=== PATIENT | male | born 1945 | race Caucasian/White ===

== ENCOUNTER 2022-02-18 09:50 | Outpatient (CLI) | payer MEDICARE, OTHER ==
[2022-02-18 12:41] LABS: BASOPHILS % (AUTO) 1.6 %; EOSINOPHILS % (AUTO) 0.1 %; HCT - HEMATOCRIT 46.1 % (42.0-52.0); HGB - HEMOGLOBIN 14.4 g/dL (14.0-18.0); LYMPHOCYTES % (AUTO) 11.1 %; MEAN CORPUSCULAR HEMOGLOBIN 26.1 pg (27.0-31.0); MEAN CORPUSCULAR HGB CONC 31.2 g/dL (32.0-36.0); MEAN CORPUSCULAR VOLUME 83.5 fL (80.0-94.0); MONOCYTES % (AUTO) 13.9 %; NEUTROPHILS % (AUTO) 62.2 %; PLT - PLATELET COUNT 134 10^3/uL (130-450); RED BLOOD COUNT 5.52 10^6/uL (4.70-6.10); RED CELL DISTRIBUTION WIDTH 18.4 % (12.0-15.0); WHITE BLOOD COUNT 14.8 x10^3/uL (4.8-10.8)
[2022-02-18 12:59] LABS: ABNORMAL LYMPHS % (MANUAL) 0 %
[2022-02-18 13:02] LABS: BAND NEUTROPHILS % (MANUAL) 5 %; BASOPHILS # (MANUAL) 0.1 10^3/uL (0-0.1); BASOPHILS % (MANUAL) 1 %; DIFFERENTIAL COMMENT MANUAL DIFFERENTIAL; LYMPHOCYTES # (MANUAL) 2.5 10^3/uL (1.5-3.5); LYMPHOCYTES % (MANUAL) 17 %; METAMYELOCYTES % (MANUAL) 3 %; MONOCYTES # (MANUAL) 2.1 10^3/uL (0.0-1.0); NEUTROPHILS # (MANUAL) 9.6 10^3/uL (1.5-6.6); PLATELET ESTIMATE, MANUAL NORMAL (130-450,000) (NORMAL); PLATELET MORPHOLOGY 2+ LARGE PLATELETS (NORMAL); RBC MORPHOLOGY (MULTIPLE) NORMAL APPEARANCE (NORMAL)
[2022-02-18 13:12] LABS: ALBUMIN 4.6 g/dL (3.2-5.5); ALBUMIN/GLOBULIN RATIO 1.5 (1.0-2.2); ALKALINE PHOSPHATASE 76 IU/L (42-121); ALT ALANINE AMINOTRANSFERASE 25 IU/L (10-60); AST ASPARTATE AMINOTRANSFERASE 21 IU/L (10-42); BILIRUBIN,TOTAL 1.2 mg/dL (0.2-1.0); BUN - BLOOD UREA NITROGEN 14 mg/dL (6-20); CALCIUM 9.3 mg/dL (8.5-10.3); CARBON DIOXIDE - CO2 27 mmol/L (21-32); CHLORIDE 101 mmol/L (101-111); CHOL/HDL RATIO 5.7 (<5.0); CHOLESTEROL 165 mg/dL; CREATININE 1.1 mg/dL (0.6-1.2); GFR - MDRD 65 (>89); GLUCOSE 98 mg/dL (70-100); HDL CHOLESTEROL 29 mg/dL; LDL CHOLESTEROL,CALCULATED 108 mg/dL; LDL/HDL RATIO 3.7 (<3.6); POTASSIUM 4.1 mmol/L (3.5-5.0); SODIUM 136 mmol/L (135-145); TOTAL PROTEIN 7.6 g/dL (6.7-8.2); TRIGLYCERIDES 142 mg/dL; VLDL CHOLESTEROL 28 mg/dL
== END 2022-02-18 09:51 | disposition home or self-care (01) ==
LOC: LAB.N 09:50
PROVIDERS: ATTEND Nurse Practitioner
DX: R53.83 Other fatigue (principal); Z13.220 Encounter for screening for lipoid disorders; N40.1 Benign prostatic hyperplasia with lower urinary tract symptoms; N13.8 Other obstructive and reflux uropathy
CPT/HCPCS: 36415; 80053; 80061; 83721; 84153; 85025

== ENCOUNTER 2022-07-31 12:14 | Outpatient (CLI) | payer MEDICARE, OTHER ==
--- NOTE | 2022-07-31 17:34 | Ultrasound Report ---
PROCEDURE: Bladder INDICATIONS: HEMATURIA TECHNIQUE: Real-time scanning was performed of the kidneys and bladder, with image documentation. COMPARISON: None FINDINGS: Bladder: Pre-void bladder volume is 185 mL. Post-void residual is 8.7 mL. Pre-void images demonstr ate no intraluminal masses or stones. On pre-void images, bilateral ureteral jets are noted with col or Doppler interrogation. (Of note, ureteral jets may not be detectable in up to 25% of cases due to insufficient differences in specific gravity between ureteral and bladder urine). Prostate gland me asures 5.0 x 2.1 x 5.47 m Miscellaneous: No free pelvic fluid. IMPRESSION: Bladder is unremarkable. Prostate gland is prominent. Reviewed by: Lesa Garsia MD on 07/31/2022 5:33 PM PDT Approved by: Lesa Garsia MD on 07/31/2022 5:33 PM PDT Station ID: [id number]
== END 2022-07-31 12:15 | disposition home or self-care (01) ==
LOC: DI 12:14
PROVIDERS: ATTEND Registered Nurse
DX: N40.0 Benign prostatic hyperplasia without lower urinary tract symptoms (principal); R31.9 Hematuria, unspecified

== ENCOUNTER 2022-09-18 14:15 | Outpatient (CLI) | payer MEDICARE, OTHER ==
[2022-09-18 18:04] LABS: BASOPHILS % (AUTO) 3.4 %; HCT - HEMATOCRIT 38.3 % (42.0-52.0); HGB - HEMOGLOBIN 12.3 g/dL (14.0-18.0); MEAN CORPUSCULAR HEMOGLOBIN 26.2 pg (27.0-31.0); MEAN CORPUSCULAR HGB CONC 32.1 g/dL (32.0-36.0); MEAN CORPUSCULAR VOLUME 81.7 fL (80.0-94.0); MONOCYTES % (AUTO) 9.7 %; NEUTROPHILS % (AUTO) 58.8 %; RED BLOOD COUNT 4.69 10^6/uL (4.70-6.10); RED CELL DISTRIBUTION WIDTH 17.8 % (12.0-15.0); WHITE BLOOD COUNT 22.3 x10^3/uL (4.8-10.8)
[2022-09-18 18:07] LABS: ALBUMIN 3.9 g/dL (3.2-5.5); ALBUMIN/GLOBULIN RATIO 1.4 (1.0-2.2); BILIRUBIN,TOTAL 0.8 mg/dL (0.2-1.0); CALCIUM 9.5 mg/dL (8.5-10.3); CREATININE 1.1 mg/dL (0.6-1.3); POTASSIUM 4.1 mmol/L (3.5-4.5); TOTAL PROTEIN 6.6 g/dL (6.4-8.9)
[2022-09-18 18:10] LABS: ABNORMAL LYMPHS % (MANUAL) 0 %
[2022-09-18 18:17] LABS: THYROID STIMULATING HORMONE 2.1 uIU/mL (0.34-5.60)
[2022-09-18 18:56] LABS: BAND NEUTROPHILS % (MANUAL) 4 %; BASOPHILS # (MANUAL) 0.2 10^3/uL (0-0.1); BASOPHILS % (MANUAL) 1 %; LYMPHOCYTES # (MANUAL) 3.1 10^3/uL (1.5-3.5); LYMPHOCYTES % (MANUAL) 13 %; METAMYELOCYTES % (MANUAL) 1 %; MYELOCYTES % (MANUAL) 1 %; NEUTROPHILS # (MANUAL) 16.5 10^3/uL (1.5-6.6); REACTIVE LYMPHS % (MANUAL) 1 %
[2022-09-18 18:57] LABS: PLATELET ESTIMATE, MANUAL DECREASED (<130,000) (NORMAL); PLATELET MORPHOLOGY 2+ GIANT PLATELETS (NORMAL); RBC MORPHOLOGY (MULTIPLE) 2+ ANISOCYTOSIS (NORMAL); WBC MORPHOLOGY (MULTIPLE) 1+ VACUOLATION (NORMAL)
[2022-09-18 18:58] LABS: DIFFERENTIAL COMMENT MANUAL DIFFERENTIAL
[2022-09-18 19:08] LABS: PLT - PLATELET COUNT 97 10^3/uL (130-450)
== END 2022-09-18 14:30 | disposition home or self-care (01) ==
LOC: LAB.N 14:15
PROVIDERS: ATTEND Family Medicine
DX: R53.83 Other fatigue (principal); R31.9 Hematuria, unspecified
CPT/HCPCS: 36415; 80053; 84443; 85025; 87077; 87086; 87181

== ENCOUNTER 2022-09-19 17:47 | Inpatient (IN) | payer MEDICARE, OTHER ==
[2022-09-19] MEDS ORDERED: SODIUM CHLORIDE 0.9% 1,000 ML IV STA (18:00)
--- NOTE | 2022-09-19 18:04 | ED Physician Documentation ---
History of Present Illness - Stated complaint Stated Complaint: ABNORMAL LABS - Chief complaint Chief Complaint: General - History obtained from History obtained from: Patient - Additonal information Additional information: 76-year-old gentleman who self catheterizes himself for urinary retention for a large prostate has not been feeling well for the last 6 days with chills, generalized weakness and poor appetite. Per the he has been spending most of the time in bed. He did have a temperature 100.9 measured at home 2 days ago. He went to urgent care yesterday for this. He had labs done and urinalysis. The results of the urine dip are not known, but there is a culture that is preliminarily growing greater than 100,000 gram-negative rods and he had a white count of 22,000 and as such was sent here for further evaluation and treatment. He is not currently on antibiotics. PD PAST MEDICAL HISTORY - Present Medications Home Medications: Ambulatory Orders Medication Instructions Recorded Confirmed No Known Home Medications 09/19/22 09/19/22 - Allergies Allergies/Adverse Reactions: Allergies Allergy/AdvReac Type Severity Reaction Status Date / Time Sulfa (Sulfonamide Allergy Unknown Verified 09/19/22 18:02 Antibiotics) PD ED PE NORMAL - Vitals Vital signs reviewed: Yes - General General: Alert and oriented X 3, No acute distress - Cardiac Cardiac: RRR, No murmur - Respiratory Respiratory: No respiratory distress, Clear bilaterally - Abdomen Abdomen: Non tender - Derm Derm: No rash - Neuro Neuro: Alert and oriented X 3, Normal speech Results - Vitals Vitals: Vital Signs - 24 hr 09/19/22 09/19/22 09/19/22 17:57 18:13 18:49 Temperature 36.6 C 36.6 C Heart Rate 91 84 77 Respiratory 18 18 18 Rate Blood Pressure 139/77 H 118/76 99/64 O2 Saturation 100 99 99 09/19/22 19:08 Temperature 36.4 C L Heart Rate 77 Respiratory 18 Rate Blood Pressure 105/76 O2 Saturation 100 Oxygen O2 Source Room air - Labs Labs: Laboratory Tests 09/19/22 09/19/22 09/19/22 18:07 18:07 18:07 WBC 28.6 H RBC 4.28 L Hgb 11.3 L Hct 34.8 L MCV 81.3 MCH 26.4 L MCHC 32.5 RDW 17.5 H Plt Count 104 L Neut # (Auto) Not Reportable Lymph # (Auto) Not Reportable [place] # (Auto) Not Reportable Eos # (Auto) Not Reportable Baso # (Auto) Not Reportable Absolute Nucleated RBC Not Reportable Total Counted 100 Band Neuts % (Manual) 6 Abnorm Lymph % (Manual) 0 Metamyelocytes % 7 H Myelocytes % 2 H Promyelocytes % 2 H Nucleated RBC % Not Reportable Neutrophils # (Manual) 21.5 H Lymphocytes # (Manual) 1.1 L Monocytes # (Manual) 2.6 H Eosinophils # (Manual) 0.3 Basophils # (Manual) 0.0 Differential Comment MANUAL DIFFERENTIAL Platelet Estimate DECREASED (<130,000) Platelet Morphology NORMAL APPEARANCE RBC Morph Micro Appear 2+ ANISOCYTOSIS Sodium 138 Potassium 4.2 Chloride 106 Carbon Dioxide 26 Anion Gap 6.0 BUN 21 H Creatinine 1.1 Estimated GFR (MDRD) 65 L Glucose 103 Lactic Acid 1.1 Calcium 9.0 Total Bilirubin 0.7 AST 20 ALT 27 Alkaline Phosphatase 131 H Total Protein 6.3 L Albumin 3.6 Globulin 2.7 Albumin/Globulin Ratio 1.3 PD Medical Decision Making - ED course ED course: 76-year-old gentleman who self caths has been ill for 6 days. He has a UTI with gram-negative rods growing in his urine from yesterday and a fever at home with worsening leukocytosis fitting sepsis criteria. Blood cultures were obtained. I do not see a reason for repeat urinalysis. He appears well but also has soft blood pressure which is trending down in the department, as of last check at 1849 it was 99/64. His lactate is normal. He was given IV Rocephin. Given the above the decision to admit was made and telehealth consultation placed at [address] Noonan, the telehospitalist called me back at approximately 7:10 PM requests renal imaging to rule out obstruction, Gutierrez, and a second liter of fluids prior to him seeing the patient. For imaging, initially had ordered a retroperitoneal ultrasound as the CT scanner was down. During that time the CT scanner became operational again and CT was ordered. He went over the CT scan, but it broke again while he was there and images were not obtained. The retroperitoneal ultrasound was reordered. Preliminary report from the shorthand reporter is that his retroperitoneal ultrasound is without obstruction. He does have bilateral renal cysts. Departure - Departure Disposition: [facility] DC/Xfer Clinical Impression: UTI (urinary tract infection), Sepsis Condition: Serious
[2022-09-19] MEDS ORDERED: cefTRIAXone 1 GM in SODIUM CHLORIDE 0.9% MINIBAG 100 ML IV STA (18:05)
[2022-09-19 18:21] LABS: BASOPHILS % (AUTO) 2.1 %; HCT - HEMATOCRIT 34.8 % (42.0-52.0); HGB - HEMOGLOBIN 11.3 g/dL (14.0-18.0); LYMPHOCYTES % (AUTO) 5.9 %; MEAN CORPUSCULAR HEMOGLOBIN 26.4 pg (27.0-31.0); MEAN CORPUSCULAR HGB CONC 32.5 g/dL (32.0-36.0); MEAN CORPUSCULAR VOLUME 81.3 fL (80.0-94.0); MONOCYTES % (AUTO) 8.8 %; NEUTROPHILS % (AUTO) 59.6 %; PLT - PLATELET COUNT 104 10^3/uL (130-450); RED BLOOD COUNT 4.28 10^6/uL (4.70-6.10); RED CELL DISTRIBUTION WIDTH 17.5 % (12.0-15.0); WHITE BLOOD COUNT 28.6 x10^3/uL (4.8-10.8)
[2022-09-19 18:24] LABS: ABNORMAL LYMPHS % (MANUAL) 0 %
[2022-09-19 18:31] LABS: ALBUMIN 3.6 g/dL (3.2-5.5); ALBUMIN/GLOBULIN RATIO 1.3 (1.0-2.2); BILIRUBIN,TOTAL 0.7 mg/dL (0.2-1.0); CREATININE 1.1 mg/dL (0.6-1.3); POTASSIUM 4.2 mmol/L (3.5-4.5); TOTAL PROTEIN 6.3 g/dL (6.4-8.9)
[2022-09-19 18:59] LABS: BAND NEUTROPHILS % (MANUAL) 6 %; DIFFERENTIAL COMMENT MANUAL DIFFERENTIAL; EOSINOPHILS # (MANUAL) 0.3 10^3/uL (0-0.7); LYMPHOCYTES # (MANUAL) 1.1 10^3/uL (1.5-3.5); LYMPHOCYTES % (MANUAL) 4 %; METAMYELOCYTES % (MANUAL) 7 %; MONOCYTES # (MANUAL) 2.6 10^3/uL (0.0-1.0); MYELOCYTES % (MANUAL) 2 %; NEUTROPHILS # (MANUAL) 21.5 10^3/uL (1.5-6.6); PLATELET ESTIMATE, MANUAL DECREASED (<130,000) (NORMAL); PLATELET MORPHOLOGY NORMAL APPEARANCE (NORMAL); PROMYELOCYTES % (MANUAL) 2 %; RBC MORPHOLOGY (MULTIPLE) 2+ ANISOCYTOSIS (NORMAL)
--- NOTE | 2022-09-19 19:36 | HISTORY & PHYSICAL EXAMINATION ---
Chief Complaint - Chief Complaint Chief Complaint: weakness History of Present Illness - Admitted From Admitted From:: home - History of Present Illness HPI Comment/Other: 76 y/o M presented to ED with generalized weakness for a few days. He reported he has enlarged prostate and he self catheteraizes regularly and yesterday went to a clinic where they tested him and today they called him to go to ED due to elevated WBC and urine culture growing more than [id number] GNR. He also had fever at home. In the ED he was found to have elevated WBC and soft BP. He denies any abd pain /n/v/d or AMS. He reportedly does not use gloves when self- catheterizing. History - Past Medical History : reports: Benign prostate hypertrophy MRSA Hx?: No - Past Surgical History HEENT: reports: Detached retina repair Meds/Allgy - Home Medications Home Medications: Ambulatory Orders Medication Instructions Recorded Confirmed No Known Home Medications 09/19/22 09/19/22 - Allergies Allergies/Adverse Reactions: Allergies Allergy/AdvReac Type Severity Reaction Status Date / Time Sulfa (Sulfonamide Allergy Unknown Verified 09/19/22 18:02 Antibiotics) Review of Systems - Constitutional Constitutional: reports: Fever Exam - Vital Signs Vital Signs: Vital Signs x48h Temp Pulse Resp BP Pulse Ox 09/19/22 19:08 36.4 C L 77 18 105/76 100 09/19/22 18:49 77 18 99/64 99 09/19/22 18:13 36.6 C 84 18 118/76 99 09/19/22 17:57 36.6 C 91 18 139/77 H 100 - Physical Exam General Appearance: positive: No acute distress Eyes Bilateral: positive: Normal inspection Neck: positive: Nml inspection Respiratory: positive: No respiratory distress Cardiovascular: positive: Regular rate & rhythm Abdomen: positive: Non-tender Back: positive: Nml inspection Skin: positive: No rash Extremities: positive: Nml appearance Neurologic/Psychiatric: positive: Oriented x3 Conclusion/Plan - Lab Results Fish Bones: 09/19/22 18:07 09/19/22 18:07 - Other Other Results/Comments: 76 y/o M # sepsis: ivf, antibiotics, recheck lactic acid and blood cultures # UTI: ivf, antibiotics, check u/z and culture # BPH?: Gutierrez catheter, check US and PSA # DVT Prophylaxis: SCD boots # code status: full discussed with pt
[2022-09-19] MEDS ORDERED: SODIUM CHLORIDE FLUSH 0.9% 10 ML SYRINGE IVP PRN (20:20)
[2022-09-19] MEDS ORDERED: PIPERACILLIN/TAZOBACTAM 3.375 GM in SODIUM CHLORIDE 0.9% MINIBAG 100 ML IV STA (20:31)
[2022-09-19] MEDS: SODIUM CHLORIDE 0.9% 1,000 ML IV SCH (21:04)
--- NOTE | 2022-09-19 22:40 | Ultrasound Report ---
PROCEDURE: Retroperitoneal INDICATIONS: uti TECHNIQUE: Real-time scanning was performed of the retroperitoneal organs, with image documentation. COMPARISON: None. FINDINGS: Kidneys: Right kidney measures 10.5 cm long; left kidney measures 11.3 cm long. Right renal cortica l thickness is approximately 1.1 cm; left renal cortical thickness is approximately 1.1 cm. No hydro nephrosis. No shadowing renal stones or discrete renal mass. Exophytic anechoic simple cyst is demons trated in the right kidney measuring up to 3.9 cm. In the left kidney, there are 2 exophytic simple a ppearing cysts measuring up to 5.3 cm in the superior pole and 2.3 cm in the inferior pole. Bladder: There is a Gutierrez catheter in place. Bladder volume is 55 mL. No definite intraluminal gage s or stones. Miscellaneous: No free abdominal fluid. IMPRESSION: 1. No evidence of hydronephrosis. 2. Partially distended urinary bladder with a Gutierrez catheter in place. Reviewed by: Logan Salomon MD on 09/19/2022 10:38 PM PDT Approved by: Logan Salomon MD on 09/19/2022 10:38 PM PDT Station ID: [id number]
[2022-09-19] MEDS: FAMOTIDINE 20 MG TABLET PO SCH (22:54)
[2022-09-19] MEDS: IBUPROFEN 400 MG TABLET PO PRN (22:54)
[2022-09-20] MEDS: ACETAMINOPHEN 325 MG TABLET PO PRN ×3 (00:25→18:36)
[2022-09-20] MEDS: SODIUM CHLORIDE 0.9% 1,000 ML IV SCH ×3 (05:21→22:06)
[2022-09-20] MEDS: SODIUM CHLORIDE FLUSH 0.9% 10 ML SYRINGE IVP SCH ×3 (05:46→16:14)
[2022-09-20] MEDS: FAMOTIDINE 20 MG TABLET PO SCH ×2 (08:11→20:56)
--- NOTE | 2022-09-20 09:42 | PHARMACY PROGRESS NOTE ---
- Best Possible Medication History Admit Date and Time: 09/19/222019 Processed by: Pharmacy Medication History completed: Yes Patient Interview: Completed As the person ultimately responsible for medication therapy, providers are able to order a medication from an existing home medication list in [facility] via the "Reconcile Routine" prior to Confirmation of that medication by intranet support. Such practice is discouraged except when the physician, in their clinical rosemary gment, deems that a medical need exists for a medication without regard to previous use.
[2022-09-20] MEDS: IBUPROFEN 400 MG TABLET PO PRN ×2 (11:51→18:37)
--- NOTE | 2022-09-20 12:23 | PROVIDER PROGRESS NOTE ---
Assessment/Plan - Problem List (1) UTI due to Klebsiella species Assessment/Plan: The urine culture result is finalized, growing Klebsiella. The sensitivities are back. It is resistant to ampicillin. The patient is allergic to sulfa so TMP/Sulfa cannot be used Plan: Continue with IV antibiotic for 1 more day, until we know for sure that the blood culture is negative I spoke to his Urologist today, reviewed his hospital course, and Dr Parson recommends 14 days of antibx, and to use po Cipro. I will change him to oral Cipro at the time of discharge, anticipate he will be discharged tomorrow (2) Bladder atonia Assessment/Plan: Patient said he has been on BPH meds in the past and they "did not work". He recently started seeing a local urologist who advised a possible prostate surgery. I spoke to his urologist Dr. Littlejohn today, Who told me the patient does not have prostate problems he has bladder atonia therefore needs catheterization or chron ic catheter, and to go home with a Gutierrez. I spoke to the patient about having a chronic indwelling Gutierrez and he said absolutely not. He does not want it because of the inconvenience of it being strapped to his leg and how uncomfortable it is especially when sleeping Plan: Dr. Littlejohn said that if the patient refuses a Gutierrez catheter that he should return back to self catheterizing, which I explained to the patient and at bedside, explaining the risk of future UTIs when self-cathing, because of introducing a foreign substance into his bladder. The urged him to have a chronic Gutierrez but the patient still favored to do catheterizations himself. We will remove the Gutierrez on the day of discharge (3) Self-catheterizes urinary bladder Assessment/Plan: As above in #3 (4) Sepsis Assessment/Plan: The patient presented with altered mental status, fever, elevated white blood count. These have all resolved - Current Meds Current Meds: Current Medications Generic Name Dose Route Start Last Admin Trade Name Freq PRN Reason Stop Dose Admin Acetaminophen 650 mg 09/19/22 22:00 09/20/22 11:51 Acetaminophen 325 Mg Tablet PO 650 mg Q4HR PRN Administration Pain or Fever > 38C (100.4F) Famotidine 20 mg 09/19/22 23:00 09/20/22 08:11 Famotidine 20 Mg Tablet PO 20 mg BID ILDA Administration Sodium Chloride 1,000 mls @ 125 mls/hr 09/19/22 21:00 09/20/22 05:46 Normal Saline 0.9% IV 125 mls/hr .Q8H ILDA Infusion Ibuprofen 400 mg 09/19/22 22:01 09/20/22 11:51 Ibuprofen 400 Mg Tablet PO 400 mg Q6HR PRN Administration Moderate Pain (Level 4-6) Sodium Chloride 10 ml 09/20/22 01:00 09/20/22 08:12 Sodium Chloride Flush 0.9% 10 Ml Syringe IVP Not Given 0100,0900,1700 ILDA - Lab Result Fish Bone Diagrams: 09/21/22 04:52 09/21/22 04:52 - Additional Planning My Orders: My Active Orders 09/20/22 18:00 cefTRIAXone [Rocephin] 1 gm Sodium Chloride 0.9% Minibag [Normal Saline 0.9% Minibag] 100 ml IV 1800 09/21/22 05:00 BMP - BASIC METABOLIC PANEL [CHEM] DAILYLAB CBC - COMP BLD CT W/AUTO DIFF [HEME] DAILYLAB Subjective - Subjective Patient Reports: Feeling Better (No longer confused. Has no pain and no complaints.) Objective Vital Signs: Vital Signs - 24 hr 09/19/22 09/19/22 09/19/22 17:57 18:13 18:49 Temperature 36.6 C 36.6 C Heart Rate 91 84 77 Heart Rate [ Brachial] Respiratory 18 18 18 Rate Blood Pressure 139/77 H 118/76 99/64 Blood Pressure [Right Brachial artery] O2 Saturation 100 99 99 09/19/22 09/19/22 09/19/22 19:08 21:00 21:50 Temperature 36.4 C L 36.6 C 37.0 C Heart Rate 77 83 Heart Rate [ 81 Brachial] Respiratory 18 18 16 Rate Blood Pressure 105/76 105/80 Blood Pressure 134/66 H [Right Brachial artery] O2 Saturation 100 100 100 09/20/22 09/20/22 00:25 07:27 Temperature 36.9 C 36.4 C L Heart Rate Heart Rate [ 81 71 Brachial] Respiratory 20 18 Rate Blood Pressure Blood Pressure 109/61 105/57 L [Right Brachial artery] O2 Saturation 99 98 Oxygen O2 Source Room air I&O (Last 24 Hrs): Intake and Output Totals x24h 09/18/22 09/19/22 09/20/22 23:59 23:59 23:59 Intake Total 1855.911 0220.083 Output Total 725 1200 Balance 378.333 272.083 General: Alert, Oriented x3 HEENT: EOMI, Mucous membr. moist/pink Neck: Supple, No JVD Neuro: Alert, Non Focal Cardiovascular: Regular rate, No murmurs Respiratory: No respiratory distress, Breath sounds nml Abdomen: Normal bowel sounds, Soft, No tenderness, Other (Obese) Genitourinary: Other (Gutierrez in place) Extremities: No clubbing, No edema, No tenderness/swelling - Results Results: Laboratory Results WBC 28.6 x10^3/uL (4.8-10.8) H 09/19/22 18:07 RBC 4.28 10^6/uL (4.70-6.10) L 09/19/22 18:07 Hgb 11.3 g/dL (14.0-18.0) L 09/19/22 18:07 Hct 34.8 % (42.0-52.0) L 09/19/22 18:07 MCV 81.3 fL (80.0-94.0) 09/19/22 18:07 MCH 26.4 pg (27.0-31.0) L 09/19/22 18:07 MCHC 32.5 g/dL (32.0-36.0) 09/19/22 18:07 RDW 17.5 % (12.0-15.0) H 09/19/22 18:07 Plt Count 104 10^3/uL (130-450) L 09/19/22 18:07 Neut # (Auto) Not Reportable 09/19/22 18:07 Lymph # (Auto) Not Reportable 09/19/22 18:07 [place] # (Auto) Not Reportable 09/19/22 18:07 Eos # (Auto) Not Reportable 09/19/22 18:07 Baso # (Auto) Not Reportable 09/19/22 18:07 Absolute Nucleated RBC Not Reportable 09/19/22 18:07 Total Counted 100 09/19/22 18:07 Band Neuts % (Manual) 6 % (0-10) 09/19/22 18:07 Abnorm Lymph % (Manual) 0 % 09/19/22 18:07 Metamyelocytes % 7 % (-0) H 09/19/22 18:07 Myelocytes % 2 % (-0) H 09/19/22 18:07 Promyelocytes % 2 % (-0) H 09/19/22 18:07 Nucleated RBC % Not Reportable 09/19/22 18:07 Neutrophils # (Manual) 21.5 10^3/uL (1.5-6.6) H 09/19/22 18:07 Lymphocytes # (Manual) 1.1 10^3/uL (1.5-3.5) L 09/19/22 18:07 Monocytes # (Manual) 2.6 10^3/uL (0.0-1.0) H 09/19/22 18:07 Eosinophils # (Manual) 0.3 10^3/uL (0-0.7) 09/19/22 18:07 Basophils # (Manual) 0.0 10^3/uL (0-0.1) 09/19/22 18:07 Differential Comment MANUAL DIFFERENTIAL 09/19/22 18:07 Platelet Estimate DECREASED (<130,000) (NORMAL) 09/19/22 18:07 Platelet Morphology NORMAL APPEARANCE (NORMAL) 09/19/22 18:07 RBC Morph Micro Appear 2+ ANISOCYTOSIS (NORMAL) 09/19/22 18:07 Sodium 138 mmol/L (135-145) 09/19/22 18:07 Potassium 4.2 mmol/L (3.5-4.5) 09/19/22 18:07 Chloride 106 mmol/L (101-111) 09/19/22 18:07 Carbon Dioxide 26 mmol/L (21-32) 09/19/22 18:07 Anion Gap 6.0 (6-13) 09/19/22 18:07 BUN 21 mg/dL (6-20) H 09/19/22 18:07 Creatinine 1.1 mg/dL (0.6-1.3) 09/19/22 18:07 Estimated GFR (MDRD) 65 (>89) L 09/19/22 18:07 Glucose 103 mg/dL (74-104) 09/19/22 18:07 Lactic Acid 0.9 mmol/L (0.5-2.2) 09/20/22 07:10 Calcium 9.0 mg/dL (8.5-10.3) 09/19/22 18:07 Total Bilirubin 0.7 mg/dL (0.2-1.0) 09/19/22 18:07 AST 20 IU/L (10-42) 09/19/22 18:07 ALT 27 IU/L (10-60) 09/19/22 18:07 Alkaline Phosphatase 131 IU/L (42-121) H 09/19/22 18:07 Total Protein 6.3 g/dL (6.4-8.9) L 09/19/22 18:07 Albumin 3.6 g/dL (3.2-5.5) 09/19/22 18:07 Globulin 2.7 g/dL (2.1-4.2) 09/19/22 18:07 Albumin/Globulin Ratio 1.3 (1.0-2.2) 09/19/22 18:07 Free PSA 1.488 ng/mL (0.16-2.81) 09/19/22 18:07
[2022-09-20] MEDS ORDERED: cefTRIAXone 1 GM in SODIUM CHLORIDE 0.9% MINIBAG 100 ML IV SCH (18:00)
[2022-09-21] MEDS: SODIUM CHLORIDE FLUSH 0.9% 10 ML SYRINGE IVP SCH ×2 (00:43→08:21)
[2022-09-21 05:07] LABS: BASOPHILS % (AUTO) 1.8 %; EOSINOPHILS % (AUTO) 0.1 %; HCT - HEMATOCRIT 31.5 % (42.0-52.0); HGB - HEMOGLOBIN 9.9 g/dL (14.0-18.0); LYMPHOCYTES % (AUTO) 6.6 %; MEAN CORPUSCULAR HEMOGLOBIN 26.5 pg (27.0-31.0); MEAN CORPUSCULAR HGB CONC 31.4 g/dL (32.0-36.0); MEAN CORPUSCULAR VOLUME 84.5 fL (80.0-94.0); MONOCYTES % (AUTO) 7.5 %; PLT - PLATELET COUNT 92 10^3/uL (130-450); RED BLOOD COUNT 3.73 10^6/uL (4.70-6.10); RED CELL DISTRIBUTION WIDTH 17.9 % (12.0-15.0); WHITE BLOOD COUNT 24.5 x10^3/uL (4.8-10.8)
[2022-09-21 05:31] LABS: ABNORMAL LYMPHS % (MANUAL) 0 %
[2022-09-21 05:38] LABS: CALCIUM 8.1 mg/dL (8.5-10.3); CREATININE 0.9 mg/dL (0.6-1.3); POTASSIUM 3.9 mmol/L (3.5-4.5)
[2022-09-21] MEDS: SODIUM CHLORIDE 0.9% 1,000 ML IV SCH (05:48)
[2022-09-21 05:52] LABS: BAND NEUTROPHILS % (MANUAL) 13 %; BASOPHILS # (MANUAL) 0.2 10^3/uL (0-0.1); BASOPHILS % (MANUAL) 1 %; EOSINOPHILS # (MANUAL) 0.5 10^3/uL (0-0.7); LYMPHOCYTES # (MANUAL) 3.4 10^3/uL (1.5-3.5); LYMPHOCYTES % (MANUAL) 14 %; METAMYELOCYTES % (MANUAL) 3 %; MONOCYTES # (MANUAL) 2.2 10^3/uL (0.0-1.0); MYELOCYTES % (MANUAL) 5 %; NEUTROPHILS # (MANUAL) 16.2 10^3/uL (1.5-6.6); RBC MORPHOLOGY (MULTIPLE) NORMAL APPEARANCE (NORMAL)
[2022-09-21 05:53] LABS: DIFFERENTIAL COMMENT MANUAL DIFFERENTIAL; PLATELET ESTIMATE, MANUAL DECREASED (<130,000) (NORMAL)
[2022-09-21] MEDS: FAMOTIDINE 20 MG TABLET PO SCH (08:20)
--- NOTE | 2022-09-21 08:46 | Discharge Plan ---
Discharge Plan Problem Reviewed?: Yes Disposition: Home, Self Care Condition: Stable Prescriptions: Ciprofloxacin [Cipro] 500 mg PO Q12H #48 tablet Diet: Regular Activity Restrictions: Activity as Tolerated Shower Restrictions: No Driving Restrictions: No Instruction Topics: Self Catheterization Men Health Concerns: You were hospitalized to manage fevers, confusion and we found that you had a serious infection of your bladder. A bacteria called Klebsiella was causing the infection. You received several days of strong IV antibiotics. You are being discharged home to finish a total 2-week course of antibiotics, by taking oral Cipro antibiotic for 12 more days. Our pharmacist checked if you can take the [place] supplements while on antibiotics, and you SHOULD NOT. Also, while on antibiotics for a long time, you could develop diarrhea, therefore you are advised to either eat yogurt with live cultures, or take an [id number] probiotic tablet daily. The Cipro antibiotic was electronically prescribed to your [facility] pharmacy. Your bladder has no ability to contract and expel urine, therefore you have to do self-catheterization. Putting a foreign object (the catheter) into your bladder, is the source of introducing bacteria into it. I spoke to Dr. Littlejohn your urologist who recommended that you now have a permanent Gutierrez catheter in place for draining your bladder. You did not want to have this, therefore the Gutierrez catheter was removed and you need to resume doing self-catheterization and should be doing it with a more sterile technique, to avoid bacteria entering your bladder. Plan of Treatment: As above. Please see your Primary Care Provider and/or your Urologist in 2 to 3 weeks, for hospital follow-up office visit. Care Goals: Improvement in symptoms and stabilization are the goals. Assessment: The patient understands the plan. Additional Instructions or Follow Up instructions: If you have new or worsening symptoms, call your Primary Care Provider, or your Urologist, Dr. Littlejohn, for advice, or come to the ER. No Smoking: If you smoke, Please STOP! Call for help. Follow-up with: Nadya Severino ARNP [Primary Care Provider] -
--- NOTE | 2022-09-21 10:28 | DISCHARGE SUMMARY ---
Discharge Summary Admit Date: 09/19/22 Discharge Date: 09/21/22 Discharging Provider: Makeda Bean MD Primary Care Provider: MICHELE Fuller Condition at Discharge: Stable Discharge Disposition: 01 Home, Self Care - HPI History of Present Illness: 76 y/o M presented to ED with generalized weakness for a few days. He reported he has enlarged prostate and he self catheteraizes regularly and yesterday went to a clinic where they tested him and today they called him to go to ED due to elevated WBC and urine culture growing more than [id number] GNR. He also had fever at home. In the ED he was found to have elevated WBC and soft BP. He denies any abd pain /n/v/d or AMS. He reportedly does not use gloves when self- catheterizing easton reuses each catheter at least 5 times. - HOSPITAL COURSE Hospital Course: (1) Sepsis The patient presented with altered mental status, fever, elevated white blood count. These resolved by Day 2 on iv fluids and antibiotics. (2) UTI due to Klebsiella species The urine culture result grew Klebsiella, resistant to Ampicillin. The patient is allergic to sulfa so TMP/Sulfa could not be used. He was on empiric IV Rocephin until we knew the blood culture was negative. I spoke to his (new) Urologist , reviewed his hospital course, and Dr Littlejohn recommended 14 days of antibx, and to use po Cipro. (3) Bladder atonia Patient said he had been on BPH meds in the past and they "did not work". He recently started seeing a local urologist who advised a possible prostate surgery. I spoke to his urologist Dr. Littlejohn who said the patient does not have prostate problems. He has bladder atonia therefore needs catheterization or a chronic indwelling catheter. The option of getting a chronic indwelling Gutierrez was discussed with the patient, and the risks and benefits were reviewed, and he sa id absolutely not. He did not want it because of the inconvenience of it being strapped to his leg and how uncomfortable it is especially when sleeping. Dr. Littlejohn had said that if the patient refuses a Gutierrez catheter that he should return back to self catheterizing, with the risk of future UTIs. The at bedside urged him to have a chronic Gutierrez but the patient still favored to do catheterizations himself. We removed the Gutierrez on the day of discharge. (4) Self-catheterizes urinary bladder As above in #3 - ALLERGIES Allergies/Adverse Reactions: Allergies Allergy/AdvReac Type Severity Reaction Status Date / Time Sulfa (Sulfonamide Allergy Unknown Verified 09/19/22 18:02 Antibiotics) - MEDICATIONS Home Medications: Ambulatory Orders Medication Instructions Recorded Confirmed Acetaminophen [Aphen] 1 tab PO DAILY PRN 09/20/22 09/20/22 Ibuprofen [Ibu-200] 1 tab PO DAILY PRN 09/20/22 09/20/22 Ciprofloxacin [Cipro] 500 mg PO Q12H #48 tablet 09/21/22 - PHYSICAL EXAM AT DISCHARGE General Appearance: positive: No acute distress, Alert, Other (Heavily tanned) Eyes Bilateral: positive: Normal inspection, EOMI ENT: positive: ENT inspection nml, No signs of dehydration Neck: positive: Nml inspection, No JVD Respiratory: positive: No respiratory distress, Breath sounds nml Cardiovascular: positive: Regular rate & rhythm, No murmur Abdomen: positive: Non-tender, Nml bowel sounds, No distention Skin: positive: Warm, Dry Extremities: positive: Non-tender, No pedal edema Neurologic/Psychiatric: positive: Oriented x3, Motor nml - LABS Result Diagrams: 09/21/22 04:52 09/21/22 04:52 - DIAGNOSTIC IMAGING Diagnostic Imaging Results: Final report reviewed - FOLLOW UP Follow Up: See PCP and Urologist in 2 weeks for a hospital follow-up office visit. - TIME SPENT Time Spent in Discharge (Minutes): 30
[2022-09-21 11:05] VITALS: BP 115/69; O2SAT 99
== END 2022-09-21 11:25 | disposition home or self-care (01) | DRG 872 ==
LOC: ED 17:47 → MS2 20:20
PROVIDERS: ADMIT Hospitalist; ATTEND Internal Medicine
DX: A41.9 Sepsis, unspecified organism (principal); N39.0 Urinary tract infection, site not specified; N40.1 Benign prostatic hyperplasia with lower urinary tract symptoms; R33.8 Other retention of urine; N40.0 Benign prostatic hyperplasia without lower urinary tract symptoms; N31.2 Flaccid neuropathic bladder, not elsewhere classified; Z88.2 Allergy status to sulfonamides
CPT/HCPCS: 36415; 76770; 80048; 80053; 83605; 84154; 85025; 87040; 96365; 99284; 99285; A9270

== ENCOUNTER 2023-01-28 08:00 | Outpatient (CLI) | payer MEDICARE, OTHER | END 2023-01-28 08:01 | disposition home or self-care (01) | LOC: LAB.N 08:00 | PROVIDERS: ATTEND Family Medicine | DX: J20.9 Acute bronchitis, unspecified (principal) ==

== ENCOUNTER 2023-02-28 08:00 | Outpatient (CLI) | payer MEDICARE, OTHER ==
[2023-02-28 18:09] LABS: BILIRUBIN,URINE NEGATIVE (NEGATIVE); GLUCOSE, URINE (UA) NEGATIVE (NEGATIVE); KETONES,URINE (UA) NEGATIVE (NEGATIVE); LEUKOCYTE ESTERASE, URINE NEGATIVE (NEGATIVE); NITRITE,URINE NEGATIVE (NEGATIVE); OCCULT BLOOD,URINE LARGE (NEGATIVE); PH,URINE 5.5 PH (5.0-7.5); PROTEIN,URINE 30 mg/dL (NEGATIVE); UROBILINOGEN,URINE 0.2 (NORMAL) E.U./dL (NORMAL)
[2023-02-28 18:14] LABS: CLARITY,URINE CLOUDY (CLEAR)
[2023-02-28 18:35] LABS: BACTERIA,URINE Few /HPF (None Seen); SQUAMOUS EPITHELIAL CELL,UR RARE Squamous (<= Few); WBC,URINE 0-3 /HPF (0-3)
[2023-02-28 18:36] LABS: AMORPHOUS SEDIMENT,UR Moderate /LPF
== END 2023-02-28 23:59 | disposition home or self-care (01) ==
LOC: LAB.WCP 08:00
PROVIDERS: ATTEND Nurse Practitioner
DX: R31.9 Hematuria, unspecified (principal); R30.0 Dysuria
CPT/HCPCS: 81001; 87086

== ENCOUNTER 2023-03-11 07:41 | Outpatient (CLI) | payer MEDICARE, OTHER ==
[2023-03-11 12:38] LABS: BASOPHILS % (AUTO) 2.9 %; EOSINOPHILS % (AUTO) 0.1 %; HCT - HEMATOCRIT 37.8 % (42.0-52.0); HGB - HEMOGLOBIN 11.3 g/dL (14.0-18.0); LYMPHOCYTES % (AUTO) 8.8 %; MEAN CORPUSCULAR HEMOGLOBIN 26.2 pg (27.0-31.0); MEAN CORPUSCULAR HGB CONC 29.9 g/dL (32.0-36.0); MEAN CORPUSCULAR VOLUME 87.7 fL (80.0-94.0); MONOCYTES % (AUTO) 16.3 %; NEUTROPHILS % (AUTO) 54.3 %; PLT - PLATELET COUNT 59 10^3/uL (130-450); RED BLOOD COUNT 4.31 10^6/uL (4.70-6.10); RED CELL DISTRIBUTION WIDTH 19.6 % (12.0-15.0); WHITE BLOOD COUNT 18.6 x10^3/uL (4.8-10.8)
[2023-03-11 13:00] LABS: ABNORMAL LYMPHS % (MANUAL) 0 %
[2023-03-11 14:08] LABS: BAND NEUTROPHILS % (MANUAL) 19 %; LYMPHOCYTES % (MANUAL) 11 %; METAMYELOCYTES % (MANUAL) 11 %; MONOCYTES # (MANUAL) 2.8 10^3/uL (0.0-1.0); MYELOCYTES % (MANUAL) 7 %; NEUTROPHILS # (MANUAL) 10.2 10^3/uL (1.5-6.6); NUCLEATED RBC (MANUAL) 2 %; PROMYELOCYTES % (MANUAL) 1 %
[2023-03-11 14:09] LABS: DIFFERENTIAL COMMENT MANUAL DIFFERENTIAL; PLATELET ESTIMATE, MANUAL DECREASED (<130,000) (NORMAL); PLATELET MORPHOLOGY NORMAL APPEARANCE (NORMAL)
== END 2023-03-11 07:42 | disposition home or self-care (01) ==
LOC: LAB.N 07:41
PROVIDERS: ATTEND Nurse Practitioner
DX: N40.1 Benign prostatic hyperplasia with lower urinary tract symptoms (principal); N13.8 Other obstructive and reflux uropathy; D64.9 Anemia, unspecified
CPT/HCPCS: 36415; 84153; 85025

== ENCOUNTER 2023-03-19 16:09 | Outpatient (CLI) | payer MEDICARE, OTHER ==
[2023-03-19 16:31] LABS: PLT - PLATELET COUNT 66 10^3/uL (130-450); RED CELL DISTRIBUTION WIDTH 19.6 % (12.0-15.0)
[2023-03-19 16:45] LABS: ALBUMIN 4.6 g/dL (3.2-5.5); ALBUMIN/GLOBULIN RATIO 1.8 (1.0-2.2); BILIRUBIN,TOTAL 1.1 mg/dL (0.2-1.0); CALCIUM 9.6 mg/dL (8.5-10.3); CREATININE 1.1 mg/dL (0.6-1.3); POTASSIUM 4.1 mmol/L (3.5-4.5); TOTAL PROTEIN 7.1 g/dL (6.4-8.9)
[2023-03-19 16:48] LABS: ABSOLUTE RETICS # AUTO 0.106 10^6/uL (0.020-0.110); BASOPHILS % (AUTO) 2.1 %; EOSINOPHILS % (AUTO) 0.1 %; HCT - HEMATOCRIT 35.6 % (42.0-52.0); HGB - HEMOGLOBIN 11.1 g/dL (14.0-18.0); MEAN CORPUSCULAR HGB CONC 31.2 g/dL (32.0-36.0); MEAN CORPUSCULAR VOLUME 86.6 fL (80.0-94.0); MONOCYTES % (AUTO) 14.1 %; NEUTROPHILS % (AUTO) 57.9 %; RED BLOOD COUNT 4.11 10^6/uL (4.70-6.10); RETICULOCYTE COUNT % (AUTO) 2.59 % (0.5-2.3); WHITE BLOOD COUNT 17.5 x10^3/uL (4.8-10.8)
[2023-03-19 16:50] LABS: SLIDE REVIEW? Indicated
[2023-03-19 16:51] LABS: ABNORMAL LYMPHS % (MANUAL) 0 %
[2023-03-19 17:34] LABS: BAND NEUTROPHILS % (MANUAL) 9 %; LYMPHOCYTES # (MANUAL) 1.4 10^3/uL (1.5-3.5); LYMPHOCYTES % (MANUAL) 8 %; METAMYELOCYTES % (MANUAL) 5 %; MONOCYTES # (MANUAL) 2.6 10^3/uL (0.0-1.0); MYELOCYTES % (MANUAL) 4 %; NEUTROPHILS # (MANUAL) 11.2 10^3/uL (1.5-6.6); PROMYELOCYTES % (MANUAL) 4 %
[2023-03-19 17:36] LABS: DIFFERENTIAL COMMENT MANUAL DIFFERENTIAL; PLATELET ESTIMATE, MANUAL DECREASED (<130,000) (NORMAL); PLATELET MORPHOLOGY 1+ LARGE PLATELETS (NORMAL); RBC MORPHOLOGY (MULTIPLE) 1+ ANISOCYTOSIS (NORMAL)
[2023-03-19 20:24] LABS: THYROID STIMULATING HORMONE 2.29 uIU/mL (0.34-5.60)
[2023-03-19 20:32] LABS: FERRITIN 570.2 ng/mL (23.9-336.2)
[2023-03-24 15:09] LABS: A/G RATIO 1.4 (0.7-1.7); ALBUMIN 3.9 g/dL (2.9-4.4); ALPHA-1-GLOBULIN 0.3 g/dL (0.0-0.4); ALPHA-2-GLOBULIN 0.7 g/dL (0.4-1.0); BETA GLOBULIN 0.8 g/dL (0.7-1.3); GAMMA GLOBULIN 1.1 g/dL (0.4-1.8); GLOBULIN TOTAL 2.9 g/dL (2.2-3.9); IMMUNOGLOBULIN A (IGA) 128 mg/dL (61-437); IMMUNOGLOBULIN G (IGG) 951 mg/dL (603-1613); IMMUNOGLOBULIN M (IGM) 69 mg/dL (15-143); M-SPIKE Not Observed g/dL (Not Observed); PROTEIN TOTAL 6.8 g/dL (6.0-8.5)
== END 2023-03-19 16:10 | disposition home or self-care (01) ==
LOC: LAB 16:09
PROVIDERS: ATTEND Internal Medicine
DX: D61.818 Other pancytopenia (principal)
CPT/HCPCS: 36415; 80053; 82607; 82668; 82728; 82746; 82784; 83521; 83540; 83615; 84155; 84165; 84439; 84443; 84466; 85025; 85045; 85651; 86334; 86880

== ENCOUNTER 2023-06-02 08:09 | Outpatient (CLI) | payer MEDICARE, OTHER ==
[~2023-06-02 08:09] MED LIST: LIDOCAINE-MPF 1% 5 ML VIAL ONE
[2023-06-02] MEDS ORDERED: fentaNYL 100 MCG/2 ML VIAL ONE (08:54)
[2023-06-02] MEDS ORDERED: MIDAZOLAM 2 MG/2 ML VIAL ONE (08:54)
[2023-06-02] MEDS: LACTATED RINGERS 1,000 ML IV ONE ×2 (10:00→10:15)
[2023-06-02] MEDS: MIDAZOLAM 2 MG/2 ML VIAL IVP ONE (10:15)
[2023-06-02] MEDS: fentaNYL 100 MCG/2 ML VIAL IVP STA (10:15)
[2023-06-02] MEDS ORDERED: LIDOCAINE-MPF 1% 5 ML VIAL TD ONE (10:52)
--- NOTE | 2023-06-02 12:15 | CT Report ---
PROCEDURE: Bone Marrow Biopsy w/Aspiratio Sedation analgesia for 30 minutes. INDICATIONS: ANEMIA TECHNIQUE: The indications, alternatives, benefits, risks, and possible complications of the procedure were comm unicated to the patient. Informed written consent from the patient was obtained and placed in the art. Continuous EKG and hemodynamic monitoring was started by trained personnel. For radiation dose reduction, the following was used: automated exposure control, adjustment of mA and/or kV according to patient size. The patient was brought to the CT suite and fuel handler spiral CT imaging was performed with localization g rid. The appropriate site for percutaneous access to the biopsy target was marked, was prepped and d raped sterilely, and was infused with local anaesthesia. Under CT guidance, a core biopsy trocar and needle set was advanced to the biopsy target, and specimen(s) were obtained. The trocar and needle were then removed, and the patient was sent for post-procedure monitoring. COMPARISON: None. FINDINGS: Biopsy site: Left posterior iliac bone Number of passes: 1 Medications: 1% lidocaine for local anaesthesia. IV Fentanyl and Versed for conscious sedation for 30 minutes (see nursing record). Complications: None. IMPRESSION: Successful CT-guided bone marrow biopsy and aspiration of the left iliac bone. Reviewed by: Rito Babcock MD on 06/02/2023 12:14 PM PDT Approved by: Rito Babcock MD on 06/02/2023 12:14 PM PDT Station ID: [id number]
[2023-06-02 12:32] VITALS: BP 112/69; O2SAT 100
== END 2023-06-02 08:10 | disposition home or self-care (01) ==
LOC: DI 08:09
PROVIDERS: ATTEND Internal Medicine
DX: D64.9 Anemia, unspecified (principal); D69.6 Thrombocytopenia, unspecified; R16.1 Splenomegaly, not elsewhere classified
CPT/HCPCS: 38222; 77012; 99156; 99157; J7120

== ENCOUNTER 2024-03-01 10:17 | Inpatient (IN) ==
--- NOTE | 2024-03-01 10:44 | ED Physician Documentation ---
PD HPI MALE Stated complaint Stated Complaint: BLEED Chief complaint Chief Complaint: General History obtained from History obtained from: Patient History of Present Illness Timing - onset: How many days ago (2) Timing - duration: Days Timing - details: Abrupt onset and Intermittant (has noted blood in urine and some clots when he self caths for urine (has done this for dozen years, per pt). Denies fevers. History of CLL and low blood count and platelet count. ) Associated symptoms: Hematuria Review of Systems Cardiovascular Reports: shortness of breath with exertion Respiratory Reports: Shortness of breath and Cough Meds/Allgy Home Medications Ambulatory Orders Medication Instructions Recorded Confirmed ibuprofen 200 mg tablet (IBU-200) 2 tab PO DAILY PM PRN Pain 1-4 09/20/22 03/01/24 Bacillus coagulans 1 cap PO DAILY 01/22/24 03/01/24 polyethylene glycol 3350 17 17 g PO DAILY #119 grams 02/07/24 03/01/24 gram/dose oral powder (Miralax) allopurinol 300 mg tablet 300 mg PO DAILY 03/01/24 03/01/24 ergocalciferol (vitamin D2) 1,250 1,250 mcg PO DAILY 03/01/24 03/01/24 mcg (50,000 unit) capsule (Vitamin D2) folic acid 1 mg tablet 1 mg PO DAILY 03/01/24 03/01/24 hydroxyurea 500 mg capsule 500 mg PO DAILY 03/01/24 03/01/24 Allergies Allergies Allergy/AdvReac Type Severity Reaction Status Date / Time Sulfa (Sulfonamide Allergy Severe Unknown Verified 03/01/24 10:28 Antibiotics) [facility] Medical History Medical History History of retinal detachment Surgical History Surgical History Hx of detached retina repair Social History Social History Smoking Status: Former smoker If you are a former smoker, when did you quit? (Date/Year): 1966 Second hand tobacco smoke exposure: No Do you dip or chew tobacco?: No Do you vape?: No Living arrangement: At home Marital Status: Living Condition: With spouse/s.o. 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 Service: Yes Dates of Service: [id number] Are you following a diet prescribed by a doctor: No Are you following a special diet: Yes (Golo Diet) Exam Constitutional abnormal general appearance (frail appearing) and abnormal body habitus (thin) and (underweight) Respiratory breath sounds equal bilaterally, normal respiratory effort, wheezing noted (expiratory wheezes) and no rales Cardiovascular normal heart rate noted Gastrointestinal abdomen soft to palpation, nontender to palpation and nondistended Genitourinary no CVA tenderness Neurology no focal motor deficit noted and no sensory deficits noted Psychiatry mental status grossly normal, oriented x3 and thought process normal Results Vitals Vitals: Vital Signs - 24 hr 03/01/24 10:28 03/01/24 12:33 03/01/24 14:00 Temperature 36.3 C L Temperature Source Temporal Artery Scan Pulse Rate 109 H 94 90 Pulse Rate [Monitoring electrodes] Respiratory Rate 16 18 18 Blood Pressure 96/56 L 96/58 L 100/55 L Blood Pressure [Left Brachial artery] O2 Saturation 100 98 98 O2 Source Room air Room air Room air Sedation scale Pain Intensity 0 0 0 03/01/24 15:43 Temperature 36.9 C Temperature Source Temporal Artery Scan Pulse Rate Pulse Rate [Monitoring electrodes] 99 Respiratory Rate 20 Blood Pressure Blood Pressure [Left Brachial artery] 89/55 L O2 Saturation O2 Source Room air Sedation scale 0-Fully awake Pain Intensity 0 Oxygen O2 Source Room air Labs Labs: Laboratory Tests 03/01/24 03/01/24 03/01/24 12:10 12:17 12:17 WBC 42.0 H* RBC 2.49 L Hgb 7.1 L Hct 22.6 L MCV 90.8 MCH 28.5 MCHC 31.4 L RDW 19.9 H Plt Count 44 L Neut # (Auto) Not Reportable Lymph # (Auto) Not Reportable Lawrence # (Auto) Not Reportable Eos # (Auto) Not Reportable Baso # (Auto) Not Reportable Absolute Nucleated RBC Not Reportable Total Counted 100 Band Neuts % (Manual) 5 Abnorm Lymph % (Manual) 0 Metamyelocytes % 6 H Myelocytes % 5 H Promyelocytes % 2 H Blast Cells % 1 H* Nucleated RBC % Not Reportable Neutrophils # (Manual) 27.3 H Lymphocytes # (Manual) 2.9 Monocytes # (Manual) 5.5 H Eosinophils # (Manual) 0.4 Basophils # (Manual) 0.0 Nucleated RBCs 3 Differential Comment MANUAL DIFFERENTIAL Platelet Estimate DECREASED (<130,000) Platelet Morphology NORMAL APPEARANCE RBC Morph Micro Appear 2+ HYPOCHROMASIA 2+ ANISOCYTOSIS Sodium Potassium Chloride Carbon Dioxide Anion Gap BUN Creatinine Estimated GFR (MDRD) Glucose Lactic Acid Calcium Magnesium Total Bilirubin AST ALT Alkaline Phosphatase Total Protein Albumin Globulin Albumin/Globulin Ratio Lipase Urine Color RED/BLOODY Urine Clarity BLOODY Urine pH Ur Specific [place] Urine Protein Urine Glucose (UA) Urine Ketones Urine Occult Blood LARGE H Urine Nitrite Urine Bilirubin NEGATIVE Urine Urobilinogen Ur Leukocyte Esterase Urine RBC TNTC H Urine WBC >25 H Ur Squamous Epith Cells NONE SEEN Urine Bacteria Few Urine Culture Comments INDICATED Nasal Adenovirus (PCR) Nasal B. parapertussis DNA (PCR) Nasal Coronavir 229E PCR Nasal Coronavir HKU1 PCR Nasal Coronavir NL63 PCR Nasal Coronavir OC43 PCR Nasal Enterovir/Rhinovir PCR Nasal Influenza B PCR Nasal Influenza A PCR Nasal Parainfluen 1 PCR Nasal Parainfluen 2 PCR Nasal Parainfluen 3 PCR Nasal Parainfluen 4 PCR Nasal RSV (PCR) Nasal B.pertussis DNA PCR Nasal C.pneumoniae (PCR) Samy Human Metapneumo PCR Nasal M.pneumoniae (PCR) Nasal SARS-CoV-2 (PCR) Blood Type Blood Type Recheck Antibody Screen Crossmatch IS Only 03/01/24 03/01/24 03/01/24 12:17 13:27 15:30 WBC RBC Hgb Hct MCV MCH MCHC RDW Plt Count Neut # (Auto) Lymph # (Auto) Lawrence # (Auto) Eos # (Auto) Baso # (Auto) Absolute Nucleated RBC Total Counted Band Neuts % (Manual) Abnorm Lymph % (Manual) Metamyelocytes % Myelocytes % Promyelocytes % Blast Cells % Nucleated RBC % Neutrophils # (Manual) Lymphocytes # (Manual) Monocytes # (Manual) Eosinophils # (Manual) Basophils # (Manual) Nucleated RBCs Differential Comment Platelet Estimate Platelet Morphology RBC Morph Micro Appear 1+ STOMATOCYTES Sodium 136 Potassium 4.3 Chloride 104 Carbon Dioxide 24 Anion Gap 8.0 BUN 24 H Creatinine 1.2 Estimated GFR (MDRD) 59 L Glucose 102 Lactic Acid 1.0 Calcium 8.2 L Magnesium 1.7 Total Bilirubin 1.2 H AST 14 ALT 9 L Alkaline Phosphatase 120 Total Protein 5.5 L Albumin 3.4 Globulin 2.1 Albumin/Globulin Ratio 1.6 Lipase 34 Urine Color Urine Clarity Urine pH Ur Specific [place] Urine Protein Urine Glucose (UA) Urine Ketones Urine Occult Blood Urine Nitrite Urine Bilirubin Urine Urobilinogen Ur Leukocyte Esterase Urine RBC Urine WBC Ur Squamous Epith Cells Urine Bacteria Urine Culture Comments Nasal Adenovirus (PCR) NOT DETECTED Nasal B. parapertussis DNA (PCR) NOT DETECTED Nasal Coronavir 229E PCR NOT DETECTED Nasal Coronavir HKU1 PCR NOT DETECTED Nasal Coronavir NL63 PCR NOT DETECTED Nasal Coronavir OC43 PCR NOT DETECTED Nasal Enterovir/Rhinovir PCR NOT DETECTED Nasal Influenza B PCR NOT DETECTED Nasal Influenza A PCR NOT DETECTED Nasal Parainfluen 1 PCR NOT DETECTED Nasal Parainfluen 2 PCR NOT DETECTED Nasal Parainfluen 3 PCR NOT DETECTED Nasal Parainfluen 4 PCR NOT DETECTED Nasal RSV (PCR) DETECTED A Nasal B.pertussis DNA PCR NOT DETECTED Nasal C.pneumoniae (PCR) NOT DETECTED Samy Human Metapneumo PCR NOT DETECTED Nasal M.pneumoniae (PCR) NOT DETECTED Nasal SARS-CoV-2 (PCR) NOT DETECTED Blood Type O POSITIVE Blood Type Recheck O POSITIVE Antibody Screen NEGATIVE Crossmatch IS Only See Detail PD Medical Decision Making ED course Complexity details: reviewed results (platelets 44, Hgb 7.1. WBC elevated as usual. Concern is with having bleeding (and hgb is lower than recent one) that pt needs platelets. Discussed with Oncology. UA c/w UTI. ), considered differential (pt self caths and bleeding could be irritative, could relate to infection, and augmented by low platelets. ), d/w patient and d/w natural remedy consultant (Dr. Sandoval, Oncology - Who directed given the patient a unit of platelets due to the now acute bleeding and to place indwelling Gutierrez catheter after the platelets are infused or during so as to reduce irritation of self cathing for now. Treat the UTI. Transfuse blood.) ED course: Patient with a history of CLL and chronic urinary retention typically has a elevated white count and low blood count and low platelet. Discharge Plan Discharge Patient Disposition: ED Place in Observation Condition: Stable Clinical Impression: Thrombocytopenia, Acute UTI, Chronic lymphocytic leukemia Hematuria Qualifiers: Hematuria type: gross Qualified Code(s): R31.0 - Gross hematuria Anemia Qualifiers: Anemia type: other cause Other causes of anemia: chronic disease, neoplastic Qualified Code(s): D63.0 - Anemia in neoplastic disease Cough Qualifiers: Cough type: unspecified Qualified Code(s): R05.9 - Cough, unspecified Interventions: ED Admission Assessment Last Done: 03/01/24 16:30
[2024-03-01 12:20] LABS: BILIRUBIN,URINE NEGATIVE (NEGATIVE); OCCULT BLOOD,URINE LARGE (NEGATIVE)
[2024-03-01 12:22] LABS: CLARITY,URINE BLOODY (CLEAR)
[2024-03-01 12:23] LABS: BACTERIA,URINE Few /HPF (None Seen); RBC,URINE TNTC /HPF (0-5); SQUAMOUS EPITHELIAL CELL,UR NONE SEEN (<= Few); WBC,URINE >25 /HPF (0-3)
[2024-03-01 12:26] LABS: BASOPHILS % (AUTO) 1.8 %; EOSINOPHILS % (AUTO) 0.9 %; HCT - HEMATOCRIT 22.6 % (42.0-52.0); HGB - HEMOGLOBIN 7.1 g/dL (14.0-18.0); LYMPHOCYTES % (AUTO) 6.5 %; MEAN CORPUSCULAR HEMOGLOBIN 28.5 pg (27.0-31.0); MEAN CORPUSCULAR HGB CONC 31.4 g/dL (32.0-36.0); MEAN CORPUSCULAR VOLUME 90.8 fL (80.0-94.0); MONOCYTES % (AUTO) 19.8 %; PLT - PLATELET COUNT 44 10^3/uL (130-450); RED BLOOD COUNT 2.49 10^6/uL (4.70-6.10); RED CELL DISTRIBUTION WIDTH 19.9 % (12.0-15.0)
[2024-03-01 12:33] LABS: ABNORMAL LYMPHS % (MANUAL) 0 %
[2024-03-01 12:46] LABS: BAND NEUTROPHILS % (MANUAL) 5 %; EOSINOPHILS # (MANUAL) 0.4 10^3/uL (0-0.7); LYMPHOCYTES # (MANUAL) 2.9 10^3/uL (1.5-3.5); LYMPHOCYTES % (MANUAL) 7 %; METAMYELOCYTES % (MANUAL) 6 %; MONOCYTES # (MANUAL) 5.5 10^3/uL (0.0-1.0); MYELOCYTES % (MANUAL) 5 %; NEUTROPHILS # (MANUAL) 27.3 10^3/uL (1.5-6.6); PROMYELOCYTES % (MANUAL) 2 %
[2024-03-01 12:47] LABS: ALBUMIN 3.4 g/dL (3.2-5.5); ALBUMIN/GLOBULIN RATIO 1.6 (1.0-2.2); BILIRUBIN,TOTAL 1.2 mg/dL (0.2-1.0); BLAST CELLS % (MANUAL) 1 %; CALCIUM 8.2 mg/dL (8.5-10.3); CREATININE 1.2 mg/dL (0.6-1.3); MAGNESIUM 1.7 mg/dL (1.7-2.3); NUCLEATED RBC (MANUAL) 3 %; POTASSIUM 4.3 mmol/L (3.5-4.5); TOTAL PROTEIN 5.5 g/dL (6.4-8.9)
[2024-03-01 12:49] LABS: DIFFERENTIAL COMMENT MANUAL DIFFERENTIAL; PLATELET ESTIMATE, MANUAL DECREASED (<130,000) (NORMAL); PLATELET MORPHOLOGY NORMAL APPEARANCE (NORMAL)
[2024-03-01] MEDS: cefTRIAXone 1 GM VIAL IVP STA (13:29)
[2024-03-01] MEDS: SODIUM CHLORIDE 0.9% 1,000 ML IV ONE (13:32)
--- NOTE | 2024-03-01 14:17 | XRAY Report ---
PROCEDURE: XR Chest 1V INDICATIONS: cough and congestion TECHNIQUE: One view of the chest was acquired. COMPARISON: None. FINDINGS: Surgical changes and devices: None. Lungs and pleura: No pleural effusions or pneumothorax. Mild diffuse interstitial prominence. No con solidation. Mediastinum: Mediastinal contours appear normal. Heart size is normal. Bones and chest wall: No suspicious bony lesions. Overlying soft tissues appear unremarkable. IMPRESSION: Mild diffuse interstitial prominence. Reviewed by: Cornelius Mcguire MD on 03/01/2024 2:16 PM PST Approved by: Cornelius Mcguire MD on 03/01/2024 2:16 PM PST Station ID: [id number]
--- NOTE | 2024-03-01 15:41 | HISTORY & PHYSICAL EXAMINATION ---
Chief Complaint <Karla Salinas - Last Filed: 03/01/24 16:56> Chief Complaint Chief Complaint: bleeding from urethra History of Present Illness <Karla Salinas - Last Filed: 03/01/24 16:56> Admitted From Admitted From:: Emergency Room History of Present Illness HPI Comment/Other: Cyrus is a 78 year-old male who presents to the ER with a chief complaint of blood from his urethra. He typically straight catheters himself in order to void. He reports this is because his prostate is "too big and hard". He has been doing this for 15 years. He presents to the ER today because he started bleeding after performing a straight catheter at home. He reports he "peed at least one and a half liters" of blood. He also reports burning during urination. He called his oncologist Dr. Sandoval's office and they advised that he needed to go to the emergency room if he was bleeding. 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 He last saw Dr. Sandoval last week. Cyrus denies any history of smoking. He reports some recent night sweats, but is unsure if he has had any recent fever or chills. He also reports a productive cough that has been present "longer" than a few days. This morning, he vomited and dry heaved during breakfast from coughing so hard. He has a limited appetite and reports decreased taste. <Susanne Iyer MD - Last Filed: 03/01/24 16:58> History Obtained From Records Reviewed: Yes History obtained from: Patient, and patient's , Rupa, at bedside Exam Limitations: None Meds/Allgy <Karla Salinas - Last Filed: 03/01/24 16:56> Home Medications Ambulatory Orders Medication Instructions Recorded Confirmed ibuprofen 200 mg tablet (IBU-200) 2 tab PO DAILY PM PRN Pain 1-4 09/20/22 03/01/24 Bacillus coagulans 1 cap PO DAILY 01/22/24 03/01/24 polyethylene glycol 3350 17 17 g PO DAILY #119 grams 02/07/24 03/01/24 gram/dose oral powder (Miralax) allopurinol 300 mg tablet 300 mg PO DAILY 03/01/24 03/01/24 ergocalciferol (vitamin D2) 1,250 1,250 mcg PO DAILY 03/01/24 03/01/24 mcg (50,000 unit) capsule (Vitamin D2) folic acid 1 mg tablet 1 mg PO DAILY 03/01/24 03/01/24 hydroxyurea 500 mg capsule 500 mg PO DAILY 03/01/24 03/01/24 Allergies Allergies Allergy/AdvReac Type Severity Reaction Status Date / Time Sulfa (Sulfonamide Allergy Severe Unknown Verified 03/01/24 10:28 Antibiotics) PFSH <Karla Salinas - Last Filed: 03/01/24 16:56> Medical History Medical History History of retinal detachment Surgical History Surgical History Hx of detached retina repair Social History Social History Smoking Status: Never smoker Second hand tobacco smoke exposure: No Do you dip or chew tobacco?: No Do you vape?: No Living arrangement: At home Marital Status: Living Condition: With spouse/s.o. 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 Service: Yes Dates of Service: [id number] Are you following a diet prescribed by a doctor: No Are you following a special diet: Yes (Golo Diet) POLST Patient has POLST: No <Susanne Iyer MD - Last Filed: 03/01/24 16:58> POLST POLST Status: Full Code Review of Systems <Karla Salinas - Last Filed: 03/01/24 16:56> Constitutional Reports: Fatigue, Night sweats, Poor appetite and Other Ears, nose, mouth, and throat Reports: Other (loss of taste ) Respiratory Reports: Cough, Sputum production and Apnea (uses a CPAP machine at night) Gastrointestinal Reports: Vomiting (from coughing so hard this morning) and Poor appetite Genitourinary Reports: Painful urination (burning), Blood in urine and Difficulty urinating (has been unable to urinate without straight catheter for 15 years) Endocrine Reports: Fatigue <Susanne Iyer MD - Last Filed: 03/01/24 16:58> Ears, nose, mouth, and throat Denies: Nasal discharge, Nasal congestion, Post nasal drip or Nasal obstruction Cardiovascular Reports: edema and swelling of feet/ankles; Denies: Irregular heart rate, chest pain or palpitations Gastrointestinal Reports: Nausea; Denies: Abdominal pain or Abdominal distention Genitourinary Denies: Urinary frequency or Urinary urgency Neurological Reports: General weakness; Denies: Focal weakness or Weakness in extremities Endocrine Denies: Excessive urination or Excessive thirst Hematologic/Lymphatic Reports: Anemia and Easy bleeding; Denies: Easy bruising or Petechiae <Karla Salinas - Last Filed: 03/01/24 16:56> Prior Level of Functionality: Cyrus typically moves around independently without the need for a cane or walker. He lives with his of 4 years. Exam <Karlaarnulfo Salinas - Last Filed: 03/01/24 16:56> Exam Cyrus is a pale, cachectic appearing male laying on his side in bed. 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 supervisor II-XII intact (grossly) and speech normal Psychiatry mental status grossly normal, thought process normal and cooperative Skin skin color abnormal (pale) and no jaundice <Susanne Iyer MD - Last Filed: 03/01/24 16:58> Constitutional abnormal body habitus (cachectic) and (thin) Respiratory breath sounds equal bilaterally, normal respiratory effort, auscultation abnormal and rales noted (throughout) (worsened in the bases) Cardiovascular normal heart rate noted, regular rhythm noted, no gallop and no rub Gastrointestinal abdomen normal to inspection Genitourinary no CVA tenderness Neurology no movement abnormality noted and no focal motor deficit noted Conclusion/Plan <Karla Salinas - Last Filed: 03/01/24 16:56> Problem List (1) Urethral bleeding: (2) RSV (respiratory syncytial virus infection): Qualifiers: RSV infection type: unspecified Qualified Code(s): B33.8 - Other specified viral diseases (3) Community acquired pneumonia: Plan: - Patient has had a productive cough for an indeterminate amount of time and is 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 - Ordered IV ceftriaxone 1gm daily and azithromycin 500 mg daily to treat with appropriate empiric antibiotics Qualifiers: Laterality: unspecified laterality Qualified Code(s): J18.9 - Pneumonia, unspecified organism (4) Anemia: Plan: - In the setting of chronic myelomonocytic leukemia with anemia, thrombocytopenia, and leukocytosis - Ordered a RBC transfusion Qualifiers: Anemia type: other cause Other causes of anemia: chronic disease, neoplastic Qualified Code(s): D63.0 - Anemia in neoplastic disease (5) Thrombocytopenia: Plan: - In the setting of chronic myelomonocytic leukemia with anemia, thrombocytopenia, and leukocytosis - Ordered a platelet transfusion (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 <Susanne Iyer MD - Last Filed: 03/01/24 16:58> Problem List (1) Urethral bleeding: Plan: - Likely secondary to straight catheter causing urethral trauma in the setting of thrombocytopenia - Ordered a platelet and RBC transfusion; will continue to trend daily - Plan to order a Gutierrez catheter to minimize further trauma while patient is hospitalized (2) RSV (respiratory syncytial virus infection): Plan: - Patient's respiratory viral panel is RSV positive - Continue supportive treatment (3) Community acquired pneumonia: Plan: - Patient has had a productive cough for an indeterminate amount of time and is 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 - Ordered IV ceftriaxone 1gm daily and azithromycin 500 mg daily to treat with appropriate empiric antibiotics (4) Anemia: Plan: - In the setting of chronic myelomonocytic leukemia with anemia, thrombocytopenia, and leukocytosis - Ordered a RBC transfusion, transfuse for Hb> 7 Hematology/oncology recommendations reviewed: - Transfuse leukocyte reduced, CMV negative and irradiated blood products - Transfuse PRBC for Hgb <7 or symptomatic anemia - Transfuse platelets for count <10,000 or active bleeding (5) Thrombocytopenia: (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
[2024-03-01] MEDS: SODIUM CHLORIDE 0.9% 500 ML IV STA (16:28)
[2024-03-01 16:35] LABS: B. PARAPERTUSSIS- RESP PCR PAN NOT DETECTED; B. PERTUSSIS- RESP PCR PANEL NOT DETECTED; C. PNEUMONIAE- RESP PCR PANEL NOT DETECTED; CORONAVIRUS 229E-RESP PCR NOT DETECTED; CORONAVIRUS HKU1-RESP PCR NOT DETECTED; CORONAVIRUS NL63-RESP PCR NOT DETECTED; CORONAVIRUS OC43-RESP PCR NOT DETECTED; HUMAN METAPNEUMOVIRUS NOT DETECTED; INFLUENZA A- RESP PCR PANEL NOT DETECTED; INFLUENZA B - RESP PCR PANEL NOT DETECTED; M. PNEUMONIAE- RESP PCR PANEL NOT DETECTED; PARAINFLUENZA VIRUS 1 NOT DETECTED; PARAINFLUENZA VIRUS 2 NOT DETECTED; PARAINFLUENZA VIRUS 4 NOT DETECTED; RHINOVIRUS/ENTEROVIRUS NOT DETECTED; RSV- RESP PCR PANEL DETECTED; SARS-CoV-2 -RESP PCR PANEL NOT DETECTED
[2024-03-01] MEDS ORDERED: ACETAMINOPHEN 325 MG TABLET PO PRN (16:47)
[2024-03-01] MEDS ORDERED: ONDANSETRON ODT 4 MG TABLET TL PRN (16:47)
[2024-03-01] MEDS ORDERED: SODIUM CHLORIDE FLUSH 0.9% 10 ML SYRINGE IVP PRN (16:47)
[2024-03-01] MEDS ORDERED: ONDANSETRON 4 MG/2 ML VIAL IVP PRN (16:47)
[2024-03-01] MEDS: LACTATED RINGERS 1,000 ML IV SCH (17:08)
[2024-03-01] MEDS: SODIUM CHLORIDE FLUSH 0.9% 10 ML SYRINGE IVP SCH (17:08)
[2024-03-02 05:44] LABS: MEAN CORPUSCULAR HGB CONC 31.8 g/dL (32.0-36.0); MEAN CORPUSCULAR VOLUME 91.2 fL (80.0-94.0); RED BLOOD COUNT 1.93 10^6/uL (4.70-6.10); RED CELL DISTRIBUTION WIDTH 19.1 % (12.0-15.0); WHITE BLOOD COUNT 24.1 x10^3/uL (4.8-10.8)
[2024-03-02 05:54] LABS: MAGNESIUM 1.5 mg/dL (1.7-2.3)
[2024-03-02 05:59] LABS: HCT - HEMATOCRIT 17.6 % (42.0-52.0); HGB - HEMOGLOBIN 5.6 g/dL (14.0-18.0)
[2024-03-02 06:00] LABS: CALCIUM 7.3 mg/dL (8.5-10.3); CREATININE 0.9 mg/dL (0.6-1.3); POTASSIUM 3.7 mmol/L (3.5-4.5)
--- NOTE | 2024-03-02 07:28 | PREOP HISTORY & PHYSICAL ---
Surgical History & Physical Chief Complaint/HPI Chief Complaint: hematuria History of Present Illness: Cyrus is a 78yo M known to me in the outpatient for history of urinary retention. He was last seen by me 06/2023. He performs CIC multiple times a day. Late 2022 he did develop some hematuria from his CIC. He had a cystoscopy at the time which showed an enlarged trilobar prostate but no other significant pathology. He has hx of CLL with severe anemia and thrombocytopenia. He presented to the ER yesterday with hematuria and was found to have Hg 7.1, platelets 44. He was admitted to transfuse blood and platelets. A [address] way rosenbaum catheter was placed. He was started on CBI Overnight he remained hemodynamically stable, but Hg dropped to 5.6, platelets 34. He states that he had no significant hematuria until recently He is seen today at bedside. Urine is grossly bloody. CBI slow. Discussed his care with hospitalist team. They are repeating the lab work to ensure correct Home Meds and Allergies Active Medications Generic Name Dose Route Start Last Admin Trade Name Darin PRN Reason Stop Dose Admin Acetaminophen 650 mg 03/01/24 16:47 Acetaminophen 325 Mg Tablet PO Q4HR PRN Pain 1 to 4, or Fever Allopurinol 300 mg 03/02/24 09:00 Allopurinol 100 Mg Tablet PO DAILY ILDA Ceftriaxone Sodium 1 gm 03/02/24 09:00 Ceftriaxone 1 Gm Vial IVP 03/05/24 09:01 DAILY ILDA Folic Acid 1 mg 03/02/24 09:00 Folic Acid 1 Mg Tablet PO DAILY ILDA Hydroxyurea 500 mg 03/02/24 09:00 Hydroxyurea 500 Mg Capsule PO DAILY ILDA Azithromycin 500 mg/ Sodium 250 mls @ 250 mls/hr 03/02/24 09:00 Chloride IV 03/04/24 09:59 DAILY ILDA Lactated Ringer's 1,000 mls @ 83.333 mls/hr 03/01/24 17:00 03/02/24 04:49 Lr IV 83.33 mls/hr .Q12H ILDA Administration Ondansetron HCl 4 mg 03/01/24 16:47 Ondansetron Odt 4 Mg Tablet TL Q6HR PRN Nausea / Vomiting Ondansetron HCl 4 mg 03/01/24 16:47 Ondansetron 4 Mg/2 Ml Vial IVP Q6HR PRN Nausea / Vomiting Saccharomyces Boulardii 250 mg 03/02/24 08:00 Saccharomyces Boulardii 250 Mg Capsule PO BIDWM ILDA Sodium Chloride 10 ml 03/01/24 16:47 Sodium Chloride Flush 0.9% 10 Ml Syringe IVP PRN PRN NEEDED PER PROVIDER ORDERS Sodium Chloride 10 ml 03/01/24 17:00 03/02/24 00:04 Sodium Chloride Flush 0.9% 10 Ml Syringe IVP 10 ml 0100,0900,1700 ILDA Administration ibuprofen 200 mg tablet (IBU-200) 2 tab PO DAILY PM PRN Pain 1-4 09/20/22 Bacillus coagulans 1 cap PO DAILY 01/22/24 polyethylene glycol 3350 17 gram/dose oral powder (Miralax) 17 g PO DAILY #119 grams 02/07/24 allopurinol 300 mg tablet 300 mg PO DAILY 03/01/24 ergocalciferol (vitamin D2) 1,250 mcg (50,000 unit) capsule (Vitamin D2) 1,250 mcg PO DAILY 03/01/24 folic acid 1 mg tablet 1 mg PO DAILY 03/01/24 hydroxyurea 500 mg capsule 500 mg PO DAILY 03/01/24 Allergies Allergy/AdvReac Type Severity Reaction Status Date / Time Sulfa (Sulfonamide Allergy Severe Unknown Verified 03/01/24 10:28 Antibiotics) Vital Signs Heart Rate: 92 Blood Pressure: 101/57 Temperature: 36.2 C Respiratory Rate: 18 O2 Saturation: 97 Patient Review Patient Review Pertinent Tests Reviewed [facility] Medical History Medical History History of retinal detachment Surgical History Surgical History Hx of detached retina repair Social History Social History Smoking Status: Former smoker If you are a former smoker, when did you quit? (Date/Year): 1966 Second hand tobacco smoke exposure: No Do you dip or chew tobacco?: No Do you vape?: No Living arrangement: At home Marital Status: Living Condition: With spouse/s.o. 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 Empiric large for catheterization and continuous bladder irrigation has not been effective to mitigate bleeding -NPO/IVF -Agree with repeat labs. Would recommend low threshold for repeat transfusion of platelets and packed red blood cells -Plan to take him to the OR today for cystoscopy, clot evacuation, fulguration of bleeding areas. The patient and I discussed this in depth. His is present. We discussed the risks of the procedure including: Infection, bleeding, injury to adjacent structures, need for additional procedures, failure of therapy, anesthesia risks. I reiterated my major concern is given his thrombocytopenia he may be very difficult to control bleeding. We did discuss that without stopping his bleeding then he will likely in the next few days. He states understanding and consents to the above plan
[2024-03-02 08:01] LABS: MEAN CORPUSCULAR HEMOGLOBIN 29.5 pg (27.0-31.0); MEAN CORPUSCULAR HGB CONC 32.5 g/dL (32.0-36.0); MEAN CORPUSCULAR VOLUME 90.8 fL (80.0-94.0); PLT - PLATELET COUNT 44 10^3/uL (130-450); RED BLOOD COUNT 2.17 10^6/uL (4.70-6.10); WHITE BLOOD COUNT 29.6 x10^3/uL (4.8-10.8)
[2024-03-02 08:36] LABS: HCT - HEMATOCRIT 19.7 % (42.0-52.0); HGB - HEMOGLOBIN 6.4 g/dL (14.0-18.0)
[2024-03-02] MEDS: HYDROXYUREA 500 MG CAPSULE PO SCH (09:14)
[2024-03-02] MEDS: FOLIC ACID 1 MG TABLET PO SCH (09:14)
[2024-03-02] MEDS: allopurinoL 100 MG TABLET PO SCH (09:14)
[2024-03-02] MEDS: SACCHAROMYCES BOULARDII 250 MG CAPSULE PO SCH (09:14)
[2024-03-02] MEDS: cefTRIAXone 1 GM VIAL IVP SCH (09:15)
[2024-03-02] MEDS: AZITHROMYCIN INJ 500 MG in SODIUM CHLORIDE 0.9% 250 ML IV SCH (09:15)
--- NOTE | 2024-03-02 09:29 | PROVIDER PROGRESS NOTE ---
Subjective Prog Note Date Prog Note Date: 03/02/24 Prog Note Time: 09:27 Subjective Subjective: Patient is a 78-year-old male with a history of MDS/CMML, benign prostatic hypertrophy resulting in straight catheterizations required every 2-3 hours, who presents with bleeding around his urethra. He stated he was straight catheterizing himself, when he noticed increased bleeding around site. He was then brought to the emergency room. The emergency room physician did speak with Dr. Sandoval, who recommended a unit of platelets, a unit of blood, as well as Gutierrez catheter placement for reduced irritation. Patient states that he has been self catheterizing for about 15 years. 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 He has had some fatigue, decreased appetite, as well as decreased p.o. intake at home. He also has had a persistent cough, which is worsened in the last 2 to 3 days. He has night sweats, chills. This morning, he stated that he went into a coughing fit, and ended up throwing up his breakfast. In the emergency room, he was hypotensive with blood pressure of 96/56, heart rate was 98, respiratory rate was 18, he was afebrile, saturating 98% on room air. On physical exam, he has some diffuse Rales, located more prominently in his bibasilar region. He has some pitting edema in his lower extremities. Abdominal exam reveals splenomegaly. He is very pale, and cachectic in appearance. Lab work was reviewedit did show leukocytosis of 42, which appears to be around his baseline. Hemoglobin was 7.1, platelets were 44. Sodium was 136, potassium was 4.3, creatinine was 1.2. Magnesium was normal at 1.7. Chest x-ray showed mild diffuse interstitial prominence. RVP was ordered, pending. Patient was admitted for platelet transfusion, PRBC transfusion, antibiotics for possible pneumonia, and closer monitoring of low blood pressure. 03/02/2024: Patient feels well, No complaints. Overnight events indicated Continued bleeding with ER Gutierrez catheter. Current Medications Current Medications Current Medications: Current Medications Generic Name Dose Route Start Last Admin Trade Name Freq PRN Reason Stop Dose Admin Acetaminophen 650 mg 03/01/24 16:47 Acetaminophen 325 Mg Tablet PO Q4HR PRN Pain 1 to 4, or Fever Allopurinol 300 mg 03/02/24 09:00 03/02/24 09:14 Allopurinol 100 Mg Tablet PO 300 mg DAILY ILDA Administration Ceftriaxone Sodium 1 gm 03/02/24 09:00 03/02/24 09:15 Ceftriaxone 1 Gm Vial IVP 03/05/24 09:01 1 gm DAILY ILDA Administration Folic Acid 1 mg 03/02/24 09:00 03/02/24 09:14 Folic Acid 1 Mg Tablet PO 1 mg DAILY ILDA Administration Hydroxyurea 500 mg 03/02/24 09:00 03/02/24 09:14 Hydroxyurea 500 Mg Capsule PO 500 mg DAILY ILDA Administration Azithromycin 500 mg/ Sodium 250 mls @ 250 mls/hr 03/02/24 09:00 03/02/24 09:15 Chloride IV 03/04/24 09:59 250 mls/hr DAILY ILDA Administration Lactated Ringer's 1,000 mls @ 83.333 mls/hr 03/01/24 17:00 03/02/24 04:49 Lr IV 83.33 mls/hr .Q12H ILDA Administration Ondansetron HCl 4 mg 03/01/24 16:47 Ondansetron Odt 4 Mg Tablet TL Q6HR PRN Nausea / Vomiting Ondansetron HCl 4 mg 03/01/24 16:47 Ondansetron 4 Mg/2 Ml Vial IVP Q6HR PRN Nausea / Vomiting Saccharomyces Boulardii 250 mg 03/02/24 08:00 03/02/24 09:14 Saccharomyces Boulardii 250 Mg Capsule PO 250 mg BIDWM ILDA Administration Sodium Chloride 10 ml 03/01/24 16:47 Sodium Chloride Flush 0.9% 10 Ml Syringe IVP PRN PRN NEEDED PER PROVIDER ORDERS Sodium Chloride 10 ml 03/01/24 17:00 03/02/24 09:22 Sodium Chloride Flush 0.9% 10 Ml Syringe IVP Not Given 0100,0900,1700 [facility] Objective Vital Signs/Intake & Output Reviewed Vital Signs: Yes Vital Signs: Vital Signs x48h Temp Pulse Pulse Resp BP BP Pulse Ox 03/02/24 08:24 36.2 C L 92 18 101/57 L 97 03/02/24 07:48 36.2 C L 92 18 101/57 L 100 Intake & Output: Intake & Output 02/28/24 02/29/24 03/01/24 03/02/24 23:59 23:59 23:59 23:59 Intake Total 2262 / 2262 39958 / 16600 Output Total 950 / 950 87620 / Balance 1312 / 1312 -2460 / -2460 Weight (kg) 74.5 kg Objective General Appearance: positive No acute distress and Alert Eyes Bilateral: positive Normal inspection ENT: positive ENT inspection nml Neck: positive Nml inspection and Trachea midline Respiratory: positive Chest non-tender and No respiratory distress Cardiovascular: positive Regular rate & rhythm and No murmur Abdomen: positive Non-tender and No organomegaly Back: positive Nml inspection Skin: positive Color nml and No rash Extremities: positive Non-tender and Full ROM Neurologic/Psychiatric: positive Oriented x3 and CN's nml (2-12) Lab Results 03/02/24 07:18 03/02/24 05:15 Other Labs: Lab Results x24hrs 03/02/24 03/02/24 03/01/24 Range/Units 07:18 05:15 15:30 WBC 29.6 H 24.1 H (4.8-10.8) x10^3/uL RBC 2.17 L 1.93 L (4.70-6.10) 10^6/uL Hgb 6.4 L* 5.6 L* (14.0-18.0) g/dL Hct 19.7 L* 17.6 L* (42.0-52.0) % MCV 90.8 91.2 (80.0-94.0) fL MCH 29.5 29.0 (27.0-31.0) pg MCHC 32.5 31.8 L (32.0-36.0) g/dL RDW 19.0 H 19.1 H (12.0-15.0) % Plt Count 44 L 34 L* (130-450) 10^3/uL MPV 12.0 H (7.4-11.4) fL Neut # (Auto) Lymph # (Auto) Broome # (Auto) Eos # (Auto) Baso # (Auto) Absolute Nucleated RBC Total Counted Band Neuts % (Manual) (0 - 10) % Abnorm Lymph % (Manual) % Metamyelocytes % ( - 0) % Myelocytes % ( - 0) % Promyelocytes % ( - 0) % Blast Cells % % Nucleated RBC % Neutrophils # (Manual) (1.5-6.6) 10^3/uL Lymphocytes # (Manual) (1.5-3.5) 10^3/uL Monocytes # (Manual) (0.0-1.0) 10^3/uL Eosinophils # (Manual) (0-0.7) 10^3/uL Basophils # (Manual) (0-0.1) 10^3/uL Nucleated RBCs % Differential Comment Platelet Estimate (NORMAL) Platelet Morphology (NORMAL) RBC Morph Micro Appear (NORMAL) Sodium 137 (135-145) mmol/L Potassium 3.7 (3.5-4.5) mmol/L Chloride 108 (101-111) mmol/L Carbon Dioxide 21 (21-32) mmol/L Anion Gap 8.0 (6-13) BUN 17 (6-20) mg/dL Creatinine 0.9 (0.6-1.3) mg/dL Estimated GFR (MDRD) 82 L (>89) Glucose 78 (74-104) mg/dL Lactic Acid (0.5-2.2) mmol/L Calcium 7.3 L (8.5-10.3) mg/dL Magnesium 1.5 L (1.7-2.3) mg/dL Total Bilirubin (0.2-1.0) mg/dL AST (10-42) IU/L ALT (10-60) IU/L Alkaline Phosphatase (42-121) IU/L Total Protein (6.4-8.9) g/dL Albumin (3.2-5.5) g/dL Globulin (2.1-4.2) g/dL Albumin/Globulin Ratio (1.0-2.2) Lipase (11-82) U/L Urine Color Urine Clarity (CLEAR) Urine pH (5.0-7.5) PH Ur Specific Spooner (1.002-1.030) Urine Protein (NEGATIVE) mg/dL Urine Glucose (UA) (NEGATIVE) mg/dL Urine Ketones (NEGATIVE) mg/dL Urine Occult Blood (NEGATIVE) Urine Nitrite (NEGATIVE) Urine Bilirubin (NEGATIVE) Urine Urobilinogen (NORMAL) E.U./dL Ur Leukocyte Esterase (NEGATIVE) Urine RBC (0-5) /HPF Urine WBC (0-3) /HPF Ur Squamous Epith Cells (<= Few) Urine Bacteria (None Seen) /HPF Urine Culture Comments Nasal Adenovirus (PCR) NOT DETECTED Nasal B. parapertussis DNA (PCR) NOT DETECTED Nasal Coronavir 229E PCR NOT DETECTED Nasal Coronavir HKU1 PCR NOT DETECTED Nasal Coronavir NL63 PCR NOT DETECTED Nasal Coronavir OC43 PCR NOT DETECTED Nasal Enterovir/Rhinovir PCR NOT DETECTED Nasal Influenza B PCR NOT DETECTED Nasal Influenza A PCR NOT DETECTED Nasal Parainfluen 1 PCR NOT DETECTED Nasal Parainfluen 2 PCR NOT DETECTED Nasal Parainfluen 3 PCR NOT DETECTED Nasal Parainfluen 4 PCR NOT DETECTED Nasal RSV (PCR) DETECTED A Nasal B.pertussis DNA PCR NOT DETECTED Nasal C.pneumoniae (PCR) NOT DETECTED Samy Human Metapneumo PCR NOT DETECTED Nasal M.pneumoniae (PCR) NOT DETECTED Nasal SARS-CoV-2 (PCR) NOT DETECTED Blood Type Blood Type Recheck Antibody Screen Crossmatch IS Only 03/01/24 03/01/24 03/01/24 Range/Units 13:27 12:17 12:17 WBC (4.8-10.8) x10^3/uL RBC (4.70-6.10) 10^6/uL Hgb (14.0-18.0) g/dL Hct (42.0-52.0) % MCV (80.0-94.0) fL MCH (27.0-31.0) pg MCHC (32.0-36.0) g/dL RDW (12.0-15.0) % Plt Count (130-450) 10^3/uL MPV (7.4-11.4) fL Neut # (Auto) Lymph # (Auto) Broome # (Auto) Eos # (Auto) Baso # (Auto) Absolute Nucleated RBC Total Counted Band Neuts % (Manual) (0 - 10) % Abnorm Lymph % (Manual) % Metamyelocytes % ( - 0) % Myelocytes % ( - 0) % Promyelocytes % ( - 0) % Blast Cells % % Nucleated RBC % Neutrophils # (Manual) (1.5-6.6) 10^3/uL Lymphocytes # (Manual) (1.5-3.5) 10^3/uL Monocytes # (Manual) (0.0-1.0) 10^3/uL Eosinophils # (Manual) (0-0.7) 10^3/uL Basophils # (Manual) (0-0.1) 10^3/uL Nucleated RBCs % Differential Comment Platelet Estimate (NORMAL) Platelet Morphology (NORMAL) RBC Morph Micro Appear 1+ STOMATOCYTES 2+ ANISOCYTOSIS (NORMAL) Sodium 136 (135-145) mmol/L Potassium 4.3 (3.5-4.5) mmol/L Chloride 104 (101-111) mmol/L Carbon Dioxide 24 (21-32) mmol/L Anion Gap 8.0 (6-13) BUN 24 H (6-20) mg/dL Creatinine 1.2 (0.6-1.3) mg/dL Estimated GFR (MDRD) 59 L (>89) Glucose 102 (74-104) mg/dL Lactic Acid 1.0 (0.5-2.2) mmol/L Calcium 8.2 L (8.5-10.3) mg/dL Magnesium 1.7 (1.7-2.3) mg/dL Total Bilirubin 1.2 H (0.2-1.0) mg/dL AST 14 (10-42) IU/L ALT 9 L (10-60) IU/L Alkaline Phosphatase 120 (42-121) IU/L Total Protein 5.5 L (6.4-8.9) g/dL Albumin 3.4 (3.2-5.5) g/dL Globulin 2.1 (2.1-4.2) g/dL Albumin/Globulin Ratio 1.6 (1.0-2.2) Lipase 34 (11-82) U/L Urine Color Urine Clarity (CLEAR) Urine pH (5.0-7.5) PH Ur Specific Spooner (1.002-1.030) Urine Protein (NEGATIVE) mg/dL Urine Glucose (UA) (NEGATIVE) mg/dL Urine Ketones (NEGATIVE) mg/dL Urine Occult Blood (NEGATIVE) Urine Nitrite (NEGATIVE) Urine Bilirubin (NEGATIVE) Urine Urobilinogen (NORMAL) E.U./dL Ur Leukocyte Esterase (NEGATIVE) Urine RBC (0-5) /HPF Urine WBC (0-3) /HPF Ur Squamous Epith Cells (<= Few) Urine Bacteria (None Seen) /HPF Urine Culture Comments Nasal Adenovirus (PCR) Nasal B. parapertussis DNA (PCR) Nasal Coronavir 229E PCR Nasal Coronavir HKU1 PCR Nasal Coronavir NL63 PCR Nasal Coronavir OC43 PCR Nasal Enterovir/Rhinovir PCR Nasal Influenza B PCR Nasal Influenza A PCR Nasal Parainfluen 1 PCR Nasal Parainfluen 2 PCR Nasal Parainfluen 3 PCR Nasal Parainfluen 4 PCR Nasal RSV (PCR) Nasal B.pertussis DNA PCR Nasal C.pneumoniae (PCR) Samy Human Metapneumo PCR Nasal M.pneumoniae (PCR) Nasal SARS-CoV-2 (PCR) Blood Type O POSITIVE Blood Type Recheck O POSITIVE Antibody Screen NEGATIVE Crossmatch IS Only See Detail 03/01/24 03/01/24 Range/Units 12:17 12:10 WBC 42.0 H* (4.8-10.8) x10^3/uL RBC 2.49 L (4.70-6.10) 10^6/uL Hgb 7.1 L (14.0-18.0) g/dL Hct 22.6 L (42.0-52.0) % MCV 90.8 (80.0-94.0) fL MCH 28.5 (27.0-31.0) pg MCHC 31.4 L (32.0-36.0) g/dL RDW 19.9 H (12.0-15.0) % Plt Count 44 L (130-450) 10^3/uL MPV (7.4-11.4) fL Neut # (Auto) Not Reportable Lymph # (Auto) Not Reportable Broome # (Auto) Not Reportable Eos # (Auto) Not Reportable Baso # (Auto) Not Reportable Absolute Nucleated RBC Not Reportable Total Counted 100 Band Neuts % (Manual) 5 (0 - 10) % Abnorm Lymph % (Manual) 0 % Metamyelocytes % 6 H ( - 0) % Myelocytes % 5 H ( - 0) % Promyelocytes % 2 H ( - 0) % Blast Cells % 1 H* % Nucleated RBC % Not Reportable Neutrophils # (Manual) 27.3 H (1.5-6.6) 10^3/uL Lymphocytes # (Manual) 2.9 (1.5-3.5) 10^3/uL Monocytes # (Manual) 5.5 H (0.0-1.0) 10^3/uL Eosinophils # (Manual) 0.4 (0-0.7) 10^3/uL Basophils # (Manual) 0.0 (0-0.1) 10^3/uL Nucleated RBCs 3 % Differential Comment MANUAL DIFFERENTIAL Platelet Estimate DECREASED (<130,000) (NORMAL) Platelet Morphology NORMAL APPEARANCE (NORMAL) RBC Morph Micro Appear 2+ HYPOCHROMASIA (NORMAL) Sodium (135-145) mmol/L Potassium (3.5-4.5) mmol/L Chloride (101-111) mmol/L Carbon Dioxide (21-32) mmol/L Anion Gap (6-13) BUN (6-20) mg/dL Creatinine (0.6-1.3) mg/dL Estimated GFR (MDRD) (>89) Glucose (74-104) mg/dL Lactic Acid (0.5-2.2) mmol/L Calcium (8.5-10.3) mg/dL Magnesium (1.7-2.3) mg/dL Total Bilirubin (0.2-1.0) mg/dL AST (10-42) IU/L ALT (10-60) IU/L Alkaline Phosphatase (42-121) IU/L Total Protein (6.4-8.9) g/dL Albumin (3.2-5.5) g/dL Globulin (2.1-4.2) g/dL Albumin/Globulin Ratio (1.0-2.2) Lipase (11-82) U/L Urine Color RED/BLOODY Urine Clarity BLOODY (CLEAR) Urine pH (5.0-7.5) PH Ur Specific Spooner (1.002-1.030) Urine Protein (NEGATIVE) mg/dL Urine Glucose (UA) (NEGATIVE) mg/dL Urine Ketones (NEGATIVE) mg/dL Urine Occult Blood LARGE H (NEGATIVE) Urine Nitrite (NEGATIVE) Urine Bilirubin NEGATIVE (NEGATIVE) Urine Urobilinogen (NORMAL) E.U./dL Ur Leukocyte Esterase (NEGATIVE) Urine RBC TNTC H (0-5) /HPF Urine WBC >25 H (0-3) /HPF Ur Squamous Epith Cells NONE SEEN (<= Few) Urine Bacteria Few (None Seen) /HPF Urine Culture Comments INDICATED Nasal Adenovirus (PCR) Nasal B. parapertussis DNA (PCR) Nasal Coronavir 229E PCR Nasal Coronavir HKU1 PCR Nasal Coronavir NL63 PCR Nasal Coronavir OC43 PCR Nasal Enterovir/Rhinovir PCR Nasal Influenza B PCR Nasal Influenza A PCR Nasal Parainfluen 1 PCR Nasal Parainfluen 2 PCR Nasal Parainfluen 3 PCR Nasal Parainfluen 4 PCR Nasal RSV (PCR) Nasal B.pertussis DNA PCR Nasal C.pneumoniae (PCR) Samy Human Metapneumo PCR Nasal M.pneumoniae (PCR) Nasal SARS-CoV-2 (PCR) Blood Type Blood Type Recheck Antibody Screen Crossmatch IS Only Diagnostic Imaging Diagnostic Imaging Results: positive Final report reviewed Assessment/Plan Problem List (1) Urethral bleeding: Impression: Likely secondary to urethral trauma secondary to Gutierrez insertion. Continue to use lipreading during the nighttime. Hemoglobin dropped to 6.4. Urology plan for surgery today Cystoscopy, Clot evacuation and fulguration of bleeding areas (2) RSV (respiratory syncytial virus infection): Impression: Continue to Supportive management Qualifiers: RSV infection type: unspecified Qualified Code(s): B33.8 - Other specified viral diseases (3) Community acquired pneumonia: Impression: Patient is immunocompromise due to CML and hydroxyurea administration. Patient is a high chance of bacterial pneumonia in the background of viral pneumonia. Continue Rocephin and azithromycin. Qualifiers: Laterality: unspecified laterality Qualified Code(s): J18.9 - Pneumonia, unspecified organism (4) Anemia: Impression: Blood loss anemia secondary to urethral bleeding In the setting of CML. Transfused with RBCs if hemoglobin less than 7 Initiate Telemonitoring Qualifiers: Anemia type: other cause Other causes of anemia: chronic disease, neoplastic Qualified Code(s): D63.0 - Anemia in neoplastic disease (5) Thrombocytopenia: Impression: Transfuse with 2 units of Platelets Before surgery. (6) MDS/MPN (myelodysplastic/myeloproliferative neoplasms): Impression: Hematology/oncology recommendations reviewed: - Transfuse leukocyte reduced, CMV negative and irradiated blood products - Transfuse PRBC for Hgb <7 or symptomatic anemia - Transfuse platelets for count <10,000 or active bleeding (7) Sleep apnea: Qualifiers: Sleep apnea type: unspecified type Qualified Code(s): G47.30 - Sleep apnea, unspecified
[2024-03-02] MEDS ORDERED: LIDOCAINE 2% URO-JET 5 ML SYRINGE UR ONE (10:33)
[2024-03-02] MEDS ORDERED: iohexoL-240 10 ML VIAL IVP ONE (10:33)
[2024-03-02] MEDS: MAGNESIUM SULFATE 1 GM in SODIUM CHLORIDE 0.9% 50 ML IV ONE (10:56)
[2024-03-02] MEDS ORDERED: KETAMINE 500 MG/10 ML VIAL ONE (11:20)
[2024-03-02] MEDS ORDERED: PROPOFOL 200 MG/20 ML VIAL IVP ONE (11:21)
[2024-03-02] MEDS ORDERED: LIDOCAINE-PF 2% 10 ML AMP SUBQ ONE (11:21)
[2024-03-02] MEDS ORDERED: fentaNYL 100 MCG/2 ML VIAL ONE (11:21)
[2024-03-02] MEDS ORDERED: METOCLOPRAMIDE 10 MG/2 ML VIAL IVP PRN (12:48)
[2024-03-02] MEDS ORDERED: ONDANSETRON 4 MG/2 ML VIAL IVP PRN (12:48)
[2024-03-02] MEDS ORDERED: HYDROmorphone 0.5 MG/0.5 ML SYRINGE IVP PRN (12:48)
[2024-03-02] MEDS ORDERED: fentaNYL 100 MCG/2 ML VIAL IVP PRN (12:48)
[2024-03-02] MEDS ORDERED: ATROPINE ABBOJECT 1 MG/10 ML SYRINGE IVP PRN (12:48)
[2024-03-02] MEDS ORDERED: ePHEDrine 50 MG/ML VIAL IVP PRN (12:48)
[2024-03-02] MEDS ORDERED: MORPHINE 2 MG/ML CARPUJECT IVP PRN (12:48)
[2024-03-02] MEDS ORDERED: NALOXONE 0.4 MG/ML VIAL IVP PRN (12:48)
--- NOTE | 2024-03-02 12:53 | OPERATIVE REPORT ---
Operative Report General Admit Date: 03/01/24 Procedure Data: Operation Date: 03/02/24 12:00 Proposed Procedures p Cystoscopy W/ CLOT EVACUATION(Not Applicable) - Khadar Littlejohn MD Actual Procedures p Cystoscopy W/ CLOT EVACUATION(Not Applicable) - Khadar Littlejohn MD Anesthesia Type General Case Staff Anesthesia Provider: Tanika Pitts Anesthesia Provider: Cesia Miller Case Times Into Recovery: 03/02/24 12:37 Procedure Start: 03/02/24 12:12 Procedure End: 03/02/24 12:28 Time out: 03/02/24 12:10 Pre-Op Diagnosis: hematuriah Post Op Diagnosis: hematuria Procedure Note Estimated Blood Loss (ml): 5 Pathology: none Indications: hematuria Findings: small bleeding from prostate mucosa, small bleeding from posterior bladder wall Complications: none Other Other Information/Narrative: After informed consent was obtained the patient was brought to the OR and laid in the supine position. The patient was anesthetized per anesthesia protocols. His Gutierrez catheter was removed. He was placed in dorsolithotomy position. He was prepped and draped in usual sterile fashion A formal timeout was performed reconfirming the patient and procedure His meatus was dilated from 24 Malian to 28 Malian. The 26 Malian long resectoscope was advanced into the urinary bladder. Immediately we could see a large volume of clot in the bladder. Using an [employer] evacuator we evacuated out about 200 cc of clot. We reinspected the bladder and saw there were no mucosal lesions of concern except for some slight erythematous patches on the posterior wall. We did see a bleeding area which was oozing from the right posterior bladder wall which was fulgurated using loop cautery and the bipolar setting. There is excellent hemostasis from the bladder. The prostate mucosa was slightly bleeding. 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 At that point time we see no evidence of further bleeding. His bladder did have significant trabeculations We then placed a 22 Malian three-way Gutierrez catheter with 40 cc in the balloon placed him on gentle traction. He will continue on continuous bladder irrigation. He will return to the floor on the medical service for further management. I recommend he continue to use the chronic catheter for now
--- NOTE | 2024-03-02 12:53 | ANESTHESIA PROCEDURE NOTE ---
Pre-Anesthesia VS, & Labs Diagnosis Surgical Diagnosis:: hematuria Procedure Procedure: cystscopy, clot evacuation Vitals Vital Signs: Temp Pulse Resp BP Pulse Ox 36.6 C 83 14 93/57 L 100 03/02/24 12:40 03/02/24 12:40 03/02/24 12:40 03/02/24 12:40 03/02/24 12:40 NPO NPO: >8 hours Lab Results Current Lab Results: Laboratory Tests 03/02/24 07:18: WBC 29.6 H, RBC 2.17 L, Hgb 6.4 L*, Hct 19.7 L*, MCV 90.8, MCH 29.5, MCHC 32.5, RDW 19.0 H, Plt Count 44 L 03/02/24 05:15: WBC 24.1 H, RBC 1.93 L, Hgb 5.6 L*, Hct 17.6 L*, MCV 91.2, MCH 29.0, MCHC 31.8 L, RDW 19.1 H, Plt Count 34 L*, MPV 12.0 H, Sodium 137, Potassium 3.7, Chloride 108, Carbon Dioxide 21, Anion Gap 8.0, BUN 17, Creatinine 0.9, Estimated GFR (MDRD) 82 L, Glucose 78, Calcium 7.3 L, Magnesium 1.5 L 03/01/24 13:27: Blood Type O POSITIVE, Antibody Screen NEGATIVE, Crossmatch IS Only See Detail 03/01/24 12:17: RBC Morph Micro Appear 1+ STOMATOCYTES, Sodium 136, Potassium 4.3, Chloride 104, Carbon Dioxide 24, Anion Gap 8.0, BUN 24 H, Creatinine 1.2, E stimated GFR (MDRD) 59 L, Glucose 102, Lactic Acid 1.0, Calcium 8.2 L, Magnesium 1.7, Total Bilirubin 1.2 H, AST 14, ALT 9 L, Alkaline Phosphatase 120, Total Protein 5.5 L, Albumin 3.4, Globulin 2.1, Albumin/Globulin Ratio 1.6, Lipase 34, Blood Type Recheck O POSITIVE 03/01/24 12:17: RBC Morph Micro Appear 2+ ANISOCYTOSIS 03/01/24 12:17: WBC 42.0 H*, RBC 2.49 L, Hgb 7.1 L, Hct 22.6 L, MCV 90.8, MCH 28.5, MCHC 31.4 L, RDW 19.9 H, Plt Count 44 L, Neut # (Auto) Not Reportable, Lymph # (Auto) Not Reportable, [place] # (Auto) Not Reportable, Eos # (Auto) Not Reportable, Baso # (Auto) Not Reportable, Absolute Nucleated RBC Not Reportable, Total Counted 100, Band Neuts % (Manual) 5, Abnorm Lymph % (Manual) 0, M etamyelocytes % 6 H, Myelocytes % 5 H, Promyelocytes % 2 H, Blast Cells % 1 H*, Nucleated RBC % Not Reportable, Neutrophils # (Manual) 27.3 H, Lymphocytes # (Manual) 2.9, Monocytes # (Manual) 5.5 H, Eosinophils # (Manual) 0.4, Basophils # (Manual) 0.0, Nucleated RBCs 3, Differential Comment MANUAL DIFFERENTIAL, Platelet Estimate DECREASED (<130,000), Platelet Morphology NORMAL APPEARANCE, RBC Morph Micro Appear 2+ HYPOCHROMASIA Lab results reviewed: Yes 03/02/24 07:18 03/02/24 05:15 Meds/Allgy Home Medications Ambulatory Orders Medication Instructions Recorded Confirmed ibuprofen 200 mg tablet (IBU-200) 2 tab PO DAILY PM PRN Pain 1-4 09/20/22 03/01/24 Bacillus coagulans 1 cap PO DAILY 01/22/24 02/11/24 allopurinol 300 mg tablet 300 mg PO DAILY 03/01/24 03/01/24 ergocalciferol (vitamin D2) 1,250 1,250 mcg PO DAILY 03/01/24 03/01/24 mcg (50,000 unit) capsule (Vitamin D2) folic acid 1 mg tablet 1 mg PO DAILY 03/01/24 03/01/24 hydroxyurea 500 mg capsule 500 mg PO DAILY 03/01/24 03/01/24 Allergies Allergies Allergy/AdvReac Type Severity Reaction Status Date / Time Sulfa (Sulfonamide Allergy Severe Unknown Verified 03/01/24 10:28 Antibiotics) [facility] Medical History Medical History (Updated 03/01/24 @ 16:41 by Susanne Iyer MD) History of retinal detachment Surgical History Surgical History Hx of detached retina repair Social History Social History Smoking Status: Former smoker If you are a former smoker, when did you quit? (Date/Year): 1966 Second hand tobacco smoke exposure: No Do you dip or chew tobacco?: No Do you vape?: No Living arrangement: At home Marital Status: Living Condition: With spouse/s.o. 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 Service: Yes Dates of Service: [id number] Are you following a diet prescribed by a doctor: No Are you following a special diet: Yes (Golo Diet) POLST Patient has POLST: No POLST Status: Full Code Anesthesia Exam (Expanded) Exam General: Alert, Oriented x3 and Cooperative Dental: Poor dentition Mouth Openin Fingerbreadth Neck Mobility: Normal Mallampati classification: IV Thyromental Distance: 4-6 cm Respiratory: Rhonchi Cardiovascular: Regular rate Plan Problem List (1) Urethral bleeding: Plan: - Likely secondary to straight catheter causing urethral trauma in the setting of thrombocytopenia - Ordered a platelet and RBC transfusion; will continue to trend daily - Plan to order a Gutierrez catheter to minimize further trauma while patient is hospitalized (2) RSV (respiratory syncytial virus infection): Plan: - Patient's respiratory viral panel is RSV positive - Continue supportive treatment Qualifiers: RSV infection type: unspecified Qualified Code(s): B33.8 - Other specified viral diseases (3) Community acquired pneumonia: Plan: - Patient has had a productive cough for an indeterminate amount of time and is 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 - Ordered IV ceftriaxone 1gm daily and azithromycin 500 mg daily to treat with appropriate empiric antibiotics Qualifiers: Laterality: unspecified laterality Qualified Code(s): J18.9 - Pneumonia, unspecified organism (4) Anemia: Plan: - In the setting of chronic myelomonocytic leukemia with anemia, thrombocytopenia, and leukocytosis - Ordered a RBC transfusion, transfuse for Hb> 7 Hematology/oncology recommendations reviewed: - Transfuse leukocyte reduced, CMV negative and irradiated blood products - Transfuse PRBC for Hgb <7 or symptomatic anemia - Transfuse platelets for count <10,000 or active bleeding Qualifiers: Anemia type: other cause Other causes of anemia: chronic disease, neoplastic Qualified Code(s): D63.0 - Anemia in neoplastic disease (5) Thrombocytopenia: Plan: - In the setting of chronic myelomonocytic leukemia with anemia, thrombocytopenia, and leukocytosis - Ordered a platelet transfusion (6) MDS/MPN (myelodysplastic/myeloproliferative neoplasms): Plan: - Continue home medications of hydroxyurea and folic acid (7) Sleep apnea: Plan: - Ordered CPAP for patient as he did not bring his CPAP from home Qualifiers: Sleep apnea type: unspecified type Qualified Code(s): G47.30 - Sleep apnea, unspecified (8) Chronic lymphocytic leukemia: (9) Cough: Qualifiers: Cough type: unspecified Qualified Code(s): R05.9 - Cough, unspecified (10) Acute UTI: (11) Hematuria: Qualifiers: Hematuria type: gross Qualified Code(s): R31.0 - Gross hematuria (12) Healthcare maintenance: (13) Leukemia: (14) Leukocytosis: (15) Hepatomegaly: (16) Splenomegaly: (17) Anemia: (18) UTI (urinary tract infection): (19) Thrombocytopenia: (20) History of retinal detachment: (21) Hx of detached retina repair: Plan Anesthesia Type: General Consent for Procedure(s) Verified and Reviewed: Yes Code Status: Attempt Resuscitation ASA Classification ASA classification: 4-Incapacitating disease Is this case an emergency?: Yes
[2024-03-02] MEDS: ceFAZolin (2G) 2 GM in SODIUM CHLORIDE 0.9% MINIBAG 100 ML IV ONE (14:05)
[2024-03-02] MEDS: LACTATED RINGERS 1,000 ML IV SCH (14:25)
--- NOTE | 2024-03-02 17:54 | PHARMACY PROGRESS NOTE ---
Best Possible Medication History Admit Date and Time: 03/01/24 140299 Home Medications Medication Instructions Recorded Confirmed Type ibuprofen 200 mg tablet (IBU-200) 2 tab PO DAILY PM PRN Pain 1-4 09/20/22 03/01/24 History Bacillus coagulans 1 cap PO DAILY 01/22/24 03/02/24 History allopurinol 300 mg tablet 300 mg PO DAILY 03/01/24 03/01/24 History ergocalciferol (vitamin D2) 1,250 1,250 mcg PO DAILY 03/01/24 03/01/24 History mcg (50,000 unit) capsule (Vitamin D2) folic acid 1 mg tablet 1 mg PO DAILY 03/01/24 03/01/24 History hydroxyurea 500 mg capsule 500 mg PO DAILY 03/01/24 03/01/24 History Processed by: Pharmacy Medications reviewed in ED?: No Medication History completed: Yes Patient Interview: Completed Secondary Source(s): Pharmacy records and Insurance records [facility] Statement: As the person ultimately responsible for medication therapy, providers are able to order a medication from an existing home medication list in [facility] via the "Reconcile Routine" prior to Confirmation of that medication by applications support analyst. Such practice is discouraged except when the physician, in their clinical judgment, deems that a medical need exists for a medication without regard to previous use.
[2024-03-02 20:31] LABS: BASOPHILS % (AUTO) 1.7 %; EOSINOPHILS % (AUTO) 0.9 %; HCT - HEMATOCRIT 20.3 % (42.0-52.0); LYMPHOCYTES % (AUTO) 5.2 %; MEAN CORPUSCULAR HEMOGLOBIN 29.6 pg (27.0-31.0); MEAN CORPUSCULAR HGB CONC 32.5 g/dL (32.0-36.0); MEAN PLATELET VOLUME 10.9 fL (7.4-11.4); MONOCYTES % (AUTO) 21.9 %; NEUTROPHILS % (AUTO) 50.2 %; PLT - PLATELET COUNT 80 10^3/uL (130-450); RED BLOOD COUNT 2.23 10^6/uL (4.70-6.10); RED CELL DISTRIBUTION WIDTH 18.3 % (12.0-15.0); WHITE BLOOD COUNT 29.7 x10^3/uL (4.8-10.8)
[2024-03-02 20:34] LABS: HGB - HEMOGLOBIN 6.6 g/dL (14.0-18.0)
[2024-03-02 21:07] LABS: PLATELET ESTIMATE, MANUAL DECREASED (<130,000) (NORMAL); PLATELET MORPHOLOGY NORMAL APPEARANCE (NORMAL)
[2024-03-02 21:11] LABS: BAND NEUTROPHILS % (MANUAL) 13 %; DIFFERENTIAL COMMENT MANUAL DIFFERENTIAL; EOSINOPHILS # (MANUAL) 1.2 10^3/uL (0-0.7); LYMPHOCYTES % (MANUAL) 8 %; METAMYELOCYTES % (MANUAL) 5 %; MONOCYTES # (MANUAL) 2.4 10^3/uL (0.0-1.0); MYELOCYTES % (MANUAL) 1 %; NEUTROPHILS # (MANUAL) 21.4 10^3/uL (1.5-6.6); REACTIVE LYMPHS % (MANUAL) 2 %
[2024-03-03] MEDS: SODIUM CHLORIDE 0.9% 1,000 ML IV ONE (00:32)
--- NOTE | 2024-03-03 05:34 | ANESTHESIA POST OP EVALUATION ---
Anesthesia Post Eval Post Anesthesia Eval Vitals: Last Vital Signs Temp 36.5 C 03/03/24 02:04 Pulse 85 03/03/24 02:04 Resp 16 03/03/24 02:04 BP 105/55 L 03/03/24 02:04 Pulse Ox 95 03/03/24 02:04 CV Function Including HR & BP: Stable Pain Control: Satisfactory Nausea & Vomiting: Negative Mental Status: Baseline Respiratory Status: Airway Patent Hydration Status: Satisfactory Anesthesia Complications: None
[2024-03-03 06:17] LABS: CALCIUM 7.6 mg/dL (8.5-10.3); CREATININE 1.2 mg/dL (0.6-1.3); POTASSIUM 3.6 mmol/L (3.5-4.5)
[2024-03-03 07:46] LABS: BASOPHILS % (AUTO) 1.9 %; EOSINOPHILS % (AUTO) 0.9 %; HCT - HEMATOCRIT 21.7 % (42.0-52.0); LYMPHOCYTES % (AUTO) 4.9 %; MEAN CORPUSCULAR HEMOGLOBIN 29.4 pg (27.0-31.0); MEAN CORPUSCULAR HGB CONC 31.3 g/dL (32.0-36.0); MEAN CORPUSCULAR VOLUME 93.9 fL (80.0-94.0); MEAN PLATELET VOLUME 12.4 fL (7.4-11.4); MONOCYTES % (AUTO) 21.7 %; NEUTROPHILS % (AUTO) 51.9 %; PLT - PLATELET COUNT 56 10^3/uL (130-450); RED BLOOD COUNT 2.31 10^6/uL (4.70-6.10); RED CELL DISTRIBUTION WIDTH 18.1 % (12.0-15.0); WHITE BLOOD COUNT 23.2 x10^3/uL (4.8-10.8)
[2024-03-03 07:49] LABS: HGB - HEMOGLOBIN 6.8 g/dL (14.0-18.0)
[2024-03-03 07:50] LABS: ABNORMAL LYMPHS % (MANUAL) 0 %
[2024-03-03 08:00] LABS: BAND NEUTROPHILS % (MANUAL) 18 %; BASOPHILS # (MANUAL) 0.5 10^3/uL (0-0.1); BASOPHILS % (MANUAL) 2 %; LYMPHOCYTES # (MANUAL) 2.8 10^3/uL (1.5-3.5); LYMPHOCYTES % (MANUAL) 12 %; METAMYELOCYTES % (MANUAL) 4 %; MONOCYTES # (MANUAL) 2.6 10^3/uL (0.0-1.0); MYELOCYTES % (MANUAL) 2 %; NUCLEATED RBC (MANUAL) 1 %
[2024-03-03 08:01] LABS: DIFFERENTIAL COMMENT MANUAL DIFFERENTIAL; PLATELET ESTIMATE, MANUAL DECREASED (<130,000) (NORMAL); PLATELET MORPHOLOGY RARE GIANT PLATELETS (NORMAL)
--- NOTE | 2024-03-03 08:16 | PROVIDER PROGRESS NOTE ---
Subjective Prog Note Date Prog Note Date: 03/03/24 Prog Note Time: 08:08 Subjective Subjective: Patient is a 78-year-old male with a history of MDS/CMML, benign prostatic hypertrophy resulting in straight catheterizations required every 2-3 hours, who presents with bleeding around his urethra. He stated he was straight catheterizing himself, when he noticed increased bleeding around site. He was then brought to the emergency room. The emergency room physician did speak with Dr. Sandoval, who recommended a unit of platelets, a unit of blood, as well as Gutierrez catheter placement for reduced irritation. Patient states that he has been self catheterizing for about 15 years. 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 He has had some fatigue, decreased appetite, as well as decreased p.o. intake at home. He also has had a persistent cough, which is worsened in the last 2 to 3 days. He has night sweats, chills. This morning, he stated that he went into a coughing fit, and ended up throwing up his breakfast. In the emergency room, he was hypotensive with blood pressure of 96/56, heart rate was 98, respiratory rate was 18, he was afebrile, saturating 98% on room air. On physical exam, he has some diffuse Rales, located more prominently in his bibasilar region. He has some pitting edema in his lower extremities. Abdominal exam reveals splenomegaly. He is very pale, and cachectic in appearance. Lab work was reviewedit did show leukocytosis of 42, which appears to be around his baseline. Hemoglobin was 7.1, platelets were 44. Sodium was 136, potassium was 4.3, creatinine was 1.2. Magnesium was normal at 1.7. Chest x-ray showed mild diffuse interstitial prominence. RVP was ordered, pending. Patient was admitted for platelet transfusion, PRBC transfusion, antibiotics for possible pneumonia, and closer monitoring of low blood pressure. 03/02/2024: Patient feels well, No complaints. Overnight events indicated Continued bleeding with ER Gutierrez catheter. 03/03/2024: Patient is status post cystoscopy. Patient feels well. Has no complaints. will bring in his CPAP machine. Current Medications Current Medications Current Medications: Current Medications Generic Name Dose Route Start Last Admin Trade Name Freq PRN Reason Stop Dose Admin Acetaminophen 650 mg 03/01/24 16:47 Acetaminophen 325 Mg Tablet PO Q4HR PRN Pain 1 to 4, or Fever Allopurinol 300 mg 03/02/24 09:00 03/02/24 09:14 Allopurinol 100 Mg Tablet PO 300 mg DAILY ILDA Administration Ceftriaxone Sodium 1 gm 03/02/24 09:00 03/02/24 09:15 Ceftriaxone 1 Gm Vial IVP 03/05/24 09:01 1 gm DAILY ILDA Administration Folic Acid 1 mg 03/02/24 09:00 03/02/24 09:14 Folic Acid 1 Mg Tablet PO 1 mg DAILY ILDA Administration Hydroxyurea 500 mg 03/02/24 09:00 03/02/24 09:14 Hydroxyurea 500 Mg Capsule PO 500 mg DAILY ILDA Administration Azithromycin 500 mg/ Sodium 250 mls @ 250 mls/hr 03/02/24 09:00 03/02/24 10:15 Chloride IV Infused DAILY ILDA Infusion Lactated Ringer's 1,000 mls @ 83.333 mls/hr 03/01/24 17:00 03/03/24 06:05 Lr IV 83.3 mls/hr .Q12H ILDA Administration Ondansetron HCl 4 mg 03/01/24 16:47 Ondansetron Odt 4 Mg Tablet TL Q6HR PRN Nausea / Vomiting Ondansetron HCl 4 mg 03/01/24 16:47 Ondansetron 4 Mg/2 Ml Vial IVP Q6HR PRN Nausea / Vomiting Saccharomyces Boulardii 250 mg 03/02/24 08:00 03/02/24 09:14 Saccharomyces Boulardii 250 Mg Capsule PO 250 mg BIDWM ILDA Administration Sodium Chloride 10 ml 03/01/24 16:47 Sodium Chloride Flush 0.9% 10 Ml Syringe IVP PRN PRN NEEDED PER PROVIDER ORDERS Sodium Chloride 10 ml 03/01/24 17:00 03/03/24 02:20 Sodium Chloride Flush 0.9% 10 Ml Syringe IVP Not Given 0100,0900,1700 [facility] Objective Vital Signs/Intake & Output Reviewed Vital Signs: Yes Vital Signs: Vital Signs x48h Temp Pulse Resp BP Pulse Ox 03/03/24 05:00 36.6 C 86 16 102/55 L 96 03/03/24 02:04 36.5 C 85 16 105/55 L 95 03/03/24 01:33 87 104/53 L 01/22/25 00:54 36.4 C L 83 16 79/42 L 94 Intake & Output: Intake & Output 02/29/24 03/01/24 03/02/24 03/03/24 23:59 23:59 23:59 23:59 Intake Total 2262 / 2262 18517 / 82566 2299 / 2299 Output Total 950 / 950 03665 / 47656 900 / 900 Balance 1312 / 1312 -665 / -665 1399 / 1399 Weight (kg) 74.5 kg Objective General Appearance: positive No acute distress and Alert Eyes Bilateral: positive Normal inspection ENT: positive ENT inspection nml Neck: positive Nml inspection and Trachea midline Respiratory: positive Chest non-tender and No respiratory distress Cardiovascular: positive Regular rate & rhythm and No murmur Abdomen: positive Non-tender and No organomegaly Back: positive Nml inspection Skin: positive Color nml and No rash Extremities: positive Non-tender and Full ROM Neurologic/Psychiatric: positive Oriented x3 and CN's nml (2-12) Lab Results 03/03/24 05:52 03/03/24 05:52 Other Labs: Lab Results x24hrs 03/03/24 03/03/24 03/03/24 Range/Units 05:52 05:52 05:52 WBC 23.2 H (4.8-10.8) x10^3/uL RBC 2.31 L (4.70-6.10) 10^6/uL Hgb 6.8 L* (14.0-18.0) g/dL Hct 21.7 L (42.0-52.0) % MCV 93.9 (80.0-94.0) fL MCH 29.4 (27.0-31.0) pg MCHC 31.3 L (32.0-36.0) g/dL RDW 18.1 H (12.0-15.0) % Plt Count 56 L (130-450) 10^3/uL MPV 12.4 H (7.4-11.4) fL Neut # (Auto) Not Reportable Lymph # (Auto) Not Reportable [place] # (Auto) Not Reportable Eos # (Auto) Not Reportable Baso # (Auto) Not Reportable Absolute Nucleated RBC Not Reportable Total Counted 100 Band Neuts % (Manual) 18 H (0 - 10) % Reactive Lymphs % (Man) % Abnorm Lymph % (Manual) 0 Metamyelocytes % 4 H ( - 0) % Myelocytes % 2 H ( - 0) % Nucleated RBC % Not Reportable Neutrophils # (Manual) 16.0 H (1.5-6.6) 10^3/uL Lymphocytes # (Manual) 2.8 (1.5-3.5) 10^3/uL Monocytes # (Manual) 2.6 H (0.0-1.0) 10^3/uL Eosinophils # (Manual) 0.0 (0-0.7) 10^3/uL Basophils # (Manual) 0.5 H Nucleated RBCs 1 % Differential Comment MANUAL DIFFERENTIAL Platelet Estimate DECREASED (<130,000) (NORMAL) Platelet Morphology RARE GIANT PLATELETS (NORMAL) RBC Morph Micro Appear 3+ HYPOCHROMASIA 1+ POLYCHROMASIA 2+ ANISOCYTOSIS (NORMAL) Sodium 140 (135-145) mmol/L Potassium 3.6 (3.5-4.5) mmol/L Chloride 110 (101-111) mmol/L Carbon Dioxide 26 (21-32) mmol/L Anion Gap 4.0 L (6-13) BUN 18 (6-20) mg/dL Creatinine 1.2 (0.6-1.3) mg/dL Estimated GFR (MDRD) 59 L (>89) Glucose 94 (74-104) mg/dL Calcium 7.6 L (8.5-10.3) mg/dL Blood Type Antibody Screen Crossmatch IS Only 03/02/24 03/02/24 03/02/24 Range/Units 20:24 20:24 20:24 WBC 29.7 H (4.8-10.8) x10^3/uL RBC 2.23 L (4.70-6.10) 10^6/uL Hgb 6.6 L* (14.0-18.0) g/dL Hct 20.3 L (42.0-52.0) % MCV 91.0 (80.0-94.0) fL MCH 29.6 (27.0-31.0) pg MCHC 32.5 (32.0-36.0) g/dL RDW 18.3 H (12.0-15.0) % Plt Count 80 L (130-450) 10^3/uL MPV 10.9 (7.4-11.4) fL Neut # (Auto) TECHNOLOGY SPECIALIST Lymph # (Auto) TECHNOLOGY SPECIALIST [place] # (Auto) TECHNOLOGY SPECIALIST Eos # (Auto) TECHNOLOGY SPECIALIST Baso # (Auto) TECHNOLOGY SPECIALIST Absolute Nucleated RBC TECHNOLOGY SPECIALIST Total Counted 100 Band Neuts % (Manual) 13 H (0 - 10) % Reactive Lymphs % (Man) 2 % Abnorm Lymph % (Manual) Not Reportable Metamyelocytes % 5 H ( - 0) % Myelocytes % 1 H ( - 0) % Nucleated RBC % TECHNOLOGY SPECIALIST Neutrophils # (Manual) 21.4 H (1.5-6.6) 10^3/uL Lymphocytes # (Manual) 3.0 (1.5-3.5) 10^3/uL Monocytes # (Manual) 2.4 H (0.0-1.0) 10^3/uL Eosinophils # (Manual) 1.2 H (0-0.7) 10^3/uL Basophils # (Manual) Not Reportable Nucleated RBCs % Differential Comment MANUAL DIFFERENTIAL Platelet Estimate DECREASED (<130,000) (NORMAL) Platelet Morphology NORMAL APPEARANCE (NORMAL) RBC Morph Micro Appear 2+ POIKILOCYTOSIS 2+ HYPOCHROMASIA 2+ ANISOCYTOSIS (NORMAL) Sodium (135-145) mmol/L Potassium (3.5-4.5) mmol/L Chloride (101-111) mmol/L Carbon Dioxide (21-32) mmol/L Anion Gap (6-13) BUN (6-20) mg/dL Creatinine (0.6-1.3) mg/dL Estimated GFR (MDRD) (>89) Glucose (74-104) mg/dL Calcium (8.5-10.3) mg/dL Blood Type Antibody Screen Crossmatch IS Only 03/02/24 03/01/24 Range/Units 07:18 13:27 WBC 29.6 H (4.8-10.8) x10^3/uL RBC 2.17 L (4.70-6.10) 10^6/uL Hgb 6.4 L* (14.0-18.0) g/dL Hct 19.7 L* (42.0-52.0) % MCV 90.8 (80.0-94.0) fL MCH 29.5 (27.0-31.0) pg MCHC 32.5 (32.0-36.0) g/dL RDW 19.0 H (12.0-15.0) % Plt Count 44 L (130-450) 10^3/uL MPV (7.4-11.4) fL Neut # (Auto) Lymph # (Auto) [place] # (Auto) Eos # (Auto) Baso # (Auto) Absolute Nucleated RBC Total Counted Band Neuts % (Manual) (0 - 10) % Reactive Lymphs % (Man) % Abnorm Lymph % (Manual) Metamyelocytes % ( - 0) % Myelocytes % ( - 0) % Nucleated RBC % Neutrophils # (Manual) (1.5-6.6) 10^3/uL Lymphocytes # (Manual) (1.5-3.5) 10^3/uL Monocytes # (Manual) (0.0-1.0) 10^3/uL Eosinophils # (Manual) (0-0.7) 10^3/uL Basophils # (Manual) Nucleated RBCs % Differential Comment Platelet Estimate (NORMAL) Platelet Morphology (NORMAL) RBC Morph Micro Appear (NORMAL) Sodium (135-145) mmol/L Potassium (3.5-4.5) mmol/L Chloride (101-111) mmol/L Carbon Dioxide (21-32) mmol/L Anion Gap (6-13) BUN (6-20) mg/dL Creatinine (0.6-1.3) mg/dL Estimated GFR (MDRD) (>89) Glucose (74-104) mg/dL Calcium (8.5-10.3) mg/dL Blood Type O POSITIVE Antibody Screen NEGATIVE Crossmatch IS Only See Detail Diagnostic Imaging Diagnostic Imaging Results: positive Final report reviewed Assessment/Plan Problem List (1) Urethral bleeding: Impression: Likely secondary to urethral trauma secondary to Gutierrez insertion. Status post cystoscopy, clot evacuation and fulguration day 1. Hemoglobin now 6.8. Platelets are at 56 After 2 units of platelets. Continue to monitor H&H. Likely Gutierrez will stay in place for a few weeks with a follow-up with urology as an outpatient (2) RSV (respiratory syncytial virus infection): Impression: Continue to Supportive management Qualifiers: RSV infection type: unspecified Qualified Code(s): B33.8 - Other specified viral diseases (3) Community acquired pneumonia: Impression: Patient is immunocompromise due to CML and hydroxyurea administration. Patient is a high chance of bacterial pneumonia in the background of viral pneumonia. Continue Rocephin 2/5 and azithromycin 2/3. Qualifiers: Laterality: unspecified laterality Qualified Code(s): J18.9 - Pneumonia, unspecified organism (4) Anemia: Impression: Blood loss anemia secondary to urethral bleeding In the setting of CML. Transfused with RBCs if hemoglobin less than 7 Continue Telemonitoring Qualifiers: Anemia type: other cause Other causes of anemia: chronic disease, neoplastic Qualified Code(s): D63.0 - Anemia in neoplastic disease (5) Thrombocytopenia: Impression: Status post transfusion of 2 units of platelets due to surgery yesterday. Current platelets are at 56. Continue to monitor (6) MDS/MPN (myelodysplastic/myeloproliferative neoplasms): Impression: Hematology/oncology recommendations reviewed: - Transfuse leukocyte reduced, CMV negative and irradiated blood products - Transfuse PRBC for Hgb <7 or symptomatic anemia - Transfuse platelets for count <10,000 or active bleeding (7) Sleep apnea: Impression: Patient and will provide CPAP machine Qualifiers: Sleep apnea type: unspecified type Qualified Code(s): G47.30 - Sleep apnea, unspecified
--- NOTE | 2024-03-03 08:22 | PROVIDER PROGRESS NOTE ---
Subjective Prog Note Date Prog Note Date: 03/03/24 Prog Note Time: 08:17 Subjective Pt reports feeling: Improved Subjective: Patient feels much better. Very slow drip CBI with no bleeding seen. Hemoglobin 6.8 which is slightly up from yesterday but is inappropriately given he had a transfusion yesterday. His platelets are much improved at 88 which is consistent with a platelet transfusion Vitals are hemodynamically stable Current Medications Current Medications Current Medications: Current Medications Generic Name Dose Route Start Last Admin Trade Name Freq PRN Reason Stop Dose Admin Acetaminophen 650 mg 03/01/24 16:47 Acetaminophen 325 Mg Tablet PO Q4HR PRN Pain 1 to 4, or Fever Allopurinol 300 mg 03/02/24 09:00 03/02/24 09:14 Allopurinol 100 Mg Tablet PO 300 mg DAILY ILDA Administration Ceftriaxone Sodium 1 gm 03/02/24 09:00 03/03/24 08:07 Ceftriaxone 1 Gm Vial IVP 03/05/24 09:01 1 gm DAILY ILDA Administration Folic Acid 1 mg 03/02/24 09:00 03/03/24 08:08 Folic Acid 1 Mg Tablet PO 1 mg DAILY ILDA Administration Hydroxyurea 500 mg 03/02/24 09:00 03/02/24 09:14 Hydroxyurea 500 Mg Capsule PO 500 mg DAILY ILDA Administration Azithromycin 500 mg/ Sodium 250 mls @ 250 mls/hr 03/02/24 09:00 03/02/24 10:15 Chloride IV Infused DAILY ILDA Infusion Lactated Ringer's 1,000 mls @ 83.333 mls/hr 03/01/24 17:00 03/03/24 06:05 Lr IV 83.3 mls/hr .Q12H ILDA Administration Ondansetron HCl 4 mg 03/01/24 16:47 Ondansetron Odt 4 Mg Tablet TL Q6HR PRN Nausea / Vomiting Ondansetron HCl 4 mg 03/01/24 16:47 Ondansetron 4 Mg/2 Ml Vial IVP Q6HR PRN Nausea / Vomiting Saccharomyces Boulardii 250 mg 03/02/24 08:00 03/02/24 09:14 Saccharomyces Boulardii 250 Mg Capsule PO 250 mg BIDWM ILDA Administration Sodium Chloride 10 ml 03/01/24 16:47 Sodium Chloride Flush 0.9% 10 Ml Syringe IVP PRN PRN NEEDED PER PROVIDER ORDERS Sodium Chloride 10 ml 03/01/24 17:00 03/03/24 08:09 Sodium Chloride Flush 0.9% 10 Ml Syringe IVP 10 ml 0100,0900,1700 [facility] Administration Objective Vital Signs/Intake & Output Reviewed Vital Signs: Yes Vital Signs: Vital Signs x48h Temp Pulse Resp BP Pulse Ox 03/03/24 07:47 36.3 C L 85 18 97/57 L 94 03/03/24 05:00 36.6 C 86 16 102/55 L 96 03/03/24 02:04 36.5 C 85 16 105/55 L 95 03/03/24 01:33 87 104/53 L 03/03/24 00:54 36.4 C L 83 16 79/42 L 94 Intake & Output: Intake & Output 02/29/24 03/01/24 03/02/24 03/03/24 23:59 23:59 23:59 23:59 Intake Total 2262 / 2262 98405 / 82442 2299 / 2299 Output Total 950 / 950 14977 / 68160 900 / 900 Balance 1312 / 1312 -665 / -665 1399 / 1399 Weight (kg) 74.5 kg Objective General Appearance: positive No acute distress (abdomen soft, nt nd, [address] with clear light yellow tinged effluent on very slow drip CBI) Lab Results 03/03/24 05:52 03/03/24 05:52 Other Labs: Lab Results x24hrs 03/03/24 03/03/24 03/03/24 Range/Units 05:52 05:52 05:52 WBC 23.2 H (4.8-10.8) x10^3/uL RBC 2.31 L (4.70-6.10) 10^6/uL Hgb 6.8 L* (14.0-18.0) g/dL Hct 21.7 L (42.0-52.0) % MCV 93.9 (80.0-94.0) fL MCH 29.4 (27.0-31.0) pg MCHC 31.3 L (32.0-36.0) g/dL RDW 18.1 H (12.0-15.0) % Plt Count 56 L (130-450) 10^3/uL MPV 12.4 H (7.4-11.4) fL Neut # (Auto) Not Reportable Lymph # (Auto) Not Reportable [place] # (Auto) Not Reportable Eos # (Auto) Not Reportable Baso # (Auto) Not Reportable Absolute Nucleated RBC Not Reportable Total Counted 100 Band Neuts % (Manual) 18 H (0 - 10) % Reactive Lymphs % (Man) % Abnorm Lymph % (Manual) 0 Metamyelocytes % 4 H ( - 0) % Myelocytes % 2 H ( - 0) % Nucleated RBC % Not Reportable Neutrophils # (Manual) 16.0 H (1.5-6.6) 10^3/uL Lymphocytes # (Manual) 2.8 (1.5-3.5) 10^3/uL Monocytes # (Manual) 2.6 H (0.0-1.0) 10^3/uL Eosinophils # (Manual) 0.0 (0-0.7) 10^3/uL Basophils # (Manual) 0.5 H Nucleated RBCs 1 % Differential Comment MANUAL DIFFERENTIAL Platelet Estimate DECREASED (<130,000) (NORMAL) Platelet Morphology RARE GIANT PLATELETS (NORMAL) RBC Morph Micro Appear 3+ HYPOCHROMASIA 1+ POLYCHROMASIA 2+ ANISOCYTOSIS (NORMAL) Sodium 140 (135-145) mmol/L Potassium 3.6 (3.5-4.5) mmol/L Chloride 110 (101-111) mmol/L Carbon Dioxide 26 (21-32) mmol/L Anion Gap 4.0 L (6-13) BUN 18 (6-20) mg/dL Creatinine 1.2 (0.6-1.3) mg/dL Estimated GFR (MDRD) 59 L (>89) Glucose 94 (74-104) mg/dL Calcium 7.6 L (8.5-10.3) mg/dL Blood Type Antibody Screen Crossmatch IS Only 03/02/24 03/02/24 03/02/24 Range/Units 20:24 20:24 20:24 WBC 29.7 H (4.8-10.8) x10^3/uL RBC 2.23 L (4.70-6.10) 10^6/uL Hgb 6.6 L* (14.0-18.0) g/dL Hct 20.3 L (42.0-52.0) % MCV 91.0 (80.0-94.0) fL MCH 29.6 (27.0-31.0) pg MCHC 32.5 (32.0-36.0) g/dL RDW 18.3 H (12.0-15.0) % Plt Count 80 L (130-450) 10^3/uL MPV 10.9 (7.4-11.4) fL Neut # (Auto) AMMUNITION ASSEMBLY I LABORER Lymph # (Auto) AMMUNITION ASSEMBLY I LABORER [place] # (Auto) AMMUNITION ASSEMBLY I LABORER Eos # (Auto) AMMUNITION ASSEMBLY I LABORER Baso # (Auto) AMMUNITION ASSEMBLY I LABORER Absolute Nucleated RBC AMMUNITION ASSEMBLY I LABORER Total Counted 100 Band Neuts % (Manual) 13 H (0 - 10) % Reactive Lymphs % (Man) 2 % Abnorm Lymph % (Manual) Not Reportable Metamyelocytes % 5 H ( - 0) % Myelocytes % 1 H ( - 0) % Nucleated RBC % AMMUNITION ASSEMBLY I LABORER Neutrophils # (Manual) 21.4 H (1.5-6.6) 10^3/uL Lymphocytes # (Manual) 3.0 (1.5-3.5) 10^3/uL Monocytes # (Manual) 2.4 H (0.0-1.0) 10^3/uL Eosinophils # (Manual) 1.2 H (0-0.7) 10^3/uL Basophils # (Manual) Not Reportable Nucleated RBCs % Differential Comment MANUAL DIFFERENTIAL Platelet Estimate DECREASED (<130,000) (NORMAL) Platelet Morphology NORMAL APPEARANCE (NORMAL) RBC Morph Micro Appear 2+ POIKILOCYTOSIS 2+ HYPOCHROMASIA 2+ ANISOCYTOSIS (NORMAL) Sodium (135-145) mmol/L Potassium (3.5-4.5) mmol/L Chloride (101-111) mmol/L Carbon Dioxide (21-32) mmol/L Anion Gap (6-13) BUN (6-20) mg/dL Creatinine (0.6-1.3) mg/dL Estimated GFR (MDRD) (>89) Glucose (74-104) mg/dL Calcium (8.5-10.3) mg/dL Blood Type Antibody Screen Crossmatch IS Only 03/02/24 03/01/24 Range/Units 07:18 13:27 WBC 29.6 H (4.8-10.8) x10^3/uL RBC 2.17 L (4.70-6.10) 10^6/uL Hgb 6.4 L* (14.0-18.0) g/dL Hct 19.7 L* (42.0-52.0) % MCV 90.8 (80.0-94.0) fL MCH 29.5 (27.0-31.0) pg MCHC 32.5 (32.0-36.0) g/dL RDW 19.0 H (12.0-15.0) % Plt Count 44 L (130-450) 10^3/uL MPV (7.4-11.4) fL Neut # (Auto) Lymph # (Auto) [place] # (Auto) Eos # (Auto) Baso # (Auto) Absolute Nucleated RBC Total Counted Band Neuts % (Manual) (0 - 10) % Reactive Lymphs % (Man) % Abnorm Lymph % (Manual) Metamyelocytes % ( - 0) % Myelocytes % ( - 0) % Nucleated RBC % Neutrophils # (Manual) (1.5-6.6) 10^3/uL Lymphocytes # (Manual) (1.5-3.5) 10^3/uL Monocytes # (Manual) (0.0-1.0) 10^3/uL Eosinophils # (Manual) (0-0.7) 10^3/uL Basophils # (Manual) Nucleated RBCs % Differential Comment Platelet Estimate (NORMAL) Platelet Morphology (NORMAL) RBC Morph Micro Appear (NORMAL) Sodium (135-145) mmol/L Potassium (3.5-4.5) mmol/L Chloride (101-111) mmol/L Carbon Dioxide (21-32) mmol/L Anion Gap (6-13) BUN (6-20) mg/dL Creatinine (0.6-1.3) mg/dL Estimated GFR (MDRD) (>89) Glucose (74-104) mg/dL Calcium (8.5-10.3) mg/dL Blood Type O POSITIVE Antibody Screen NEGATIVE Crossmatch IS Only See Detail Assessment/Plan Problem List (1) Hematuria: Impression: Significant hematuria related to a combination of thrombocytopenia and self- catheterization. Now resolved after cystoscopy, clot evacuation, fulguration of bleeding areas March 02, 2024 Urine completely clear. Stop continuous bladder irrigation Okay to stop antibiotics from perspective Transfuse as necessary, no evidence of continued bleeding at this point Qualifiers: Hematuria type: gross Qualified Code(s): R31.0 - Gross hematuria (2) Bladder atonia: Impression: I recommend he does not return to clean intermittent catheterization for the time being. Ideally I think he would benefit from leaving a catheter in place until his platelet count is improved, with monthly catheter changes from home health or at the [facility] clinic. I discussed this with the patient this morning. He is not interested in long- term catheterization. I would like his catheter to remain in place for at least 1 week. He can remove the catheter himself on March 09. If he is discharged before this which he likely will be, please send him home with instructions and materials I will have him follow-up with me in a month. Please let me know when he is discharged to arrange this If he develops future hematuria from intermittent catheterization then I would not recommend intermittent catheterization at all Urology signing off
[2024-03-03 13:07] LABS: HCT - HEMATOCRIT 26.2 % (42.0-52.0); HGB - HEMOGLOBIN 8.3 g/dL (14.0-18.0)
[2024-03-03 18:12] LABS: HCT - HEMATOCRIT 27.4 % (42.0-52.0); HGB - HEMOGLOBIN 8.7 g/dL (14.0-18.0)
[2024-03-04 00:41] LABS: HCT - HEMATOCRIT 23.3 % (42.0-52.0); HGB - HEMOGLOBIN 7.6 g/dL (14.0-18.0)
[2024-03-04 06:04] LABS: EOSINOPHILS % (AUTO) 0.9 %; HCT - HEMATOCRIT 25.2 % (42.0-52.0); HGB - HEMOGLOBIN 7.9 g/dL (14.0-18.0); LYMPHOCYTES % (AUTO) 4.6 %; MEAN CORPUSCULAR HEMOGLOBIN 29.3 pg (27.0-31.0); MEAN CORPUSCULAR HGB CONC 31.3 g/dL (32.0-36.0); MEAN CORPUSCULAR VOLUME 93.3 fL (80.0-94.0); MONOCYTES % (AUTO) 21.5 %; NEUTROPHILS % (AUTO) 52.2 %; PLT - PLATELET COUNT 45 10^3/uL (130-450); RED CELL DISTRIBUTION WIDTH 18.3 % (12.0-15.0)
[2024-03-04 06:16] LABS: CALCIUM 7.8 mg/dL (8.5-10.3); POTASSIUM 3.6 mmol/L (3.5-4.5)
[2024-03-04 06:18] LABS: ABNORMAL LYMPHS % (MANUAL) 0 %
[2024-03-04 06:45] LABS: BAND NEUTROPHILS % (MANUAL) 6 %; BASOPHILS # (MANUAL) 0.9 10^3/uL (0-0.1); BASOPHILS % (MANUAL) 3 %; EOSINOPHILS # (MANUAL) 0.3 10^3/uL (0-0.7); LYMPHOCYTES # (MANUAL) 3.3 10^3/uL (1.5-3.5); LYMPHOCYTES % (MANUAL) 11 %; METAMYELOCYTES % (MANUAL) 5 %; MONOCYTES # (MANUAL) 3.9 10^3/uL (0.0-1.0); MYELOCYTES % (MANUAL) 7 %; NEUTROPHILS # (MANUAL) 17.1 10^3/uL (1.5-6.6); PROMYELOCYTES % (MANUAL) 1 %
[2024-03-04 06:47] LABS: BLAST CELLS % (MANUAL) 2 %; NUCLEATED RBC (MANUAL) 3 %
[2024-03-04 06:48] LABS: DIFFERENTIAL COMMENT MANUAL DIFFERENTIAL; PLATELET ESTIMATE, MANUAL DECREASED (<130,000) (NORMAL)
[2024-03-04] MEDS: cefTRIAXone 1 GM in SODIUM CHLORIDE 0.9% MINIBAG 100 ML IV SCH (08:25)
--- NOTE | 2024-03-04 08:47 | PROVIDER PROGRESS NOTE ---
Subjective Prog Note Date Prog Note Date: 03/04/24 Prog Note Time: 08:47 Subjective Subjective: Patient is a 78-year-old male with a history of MDS/CMML, benign prostatic hypertrophy resulting in straight catheterizations required every 2-3 hours, who presents with bleeding around his urethra. He stated he was straight catheterizing himself, when he noticed increased bleeding around site. He was then brought to the emergency room. The emergency room physician did speak with Dr. Sandoval, who recommended a unit of platelets, a unit of blood, as well as Gutierrez catheter placement for reduced irritation. Patient states that he has been self catheterizing for about 15 years. 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 He has had some fatigue, decreased appetite, as well as decreased p.o. intake at home. He also has had a persistent cough, which is worsened in the last 2 to 3 days. He has night sweats, chills. This morning, he stated that he went into a coughing fit, and ended up throwing up his breakfast. In the emergency room, he was hypotensive with blood pressure of 96/56, heart rate was 98, respiratory rate was 18, he was afebrile, saturating 98% on room air. On physical exam, he has some diffuse Rales, located more prominently in his bibasilar region. He has some pitting edema in his lower extremities. Abdominal exam reveals splenomegaly. He is very pale, and cachectic in appearance. Lab work was reviewedit did show leukocytosis of 42, which appears to be around his baseline. Hemoglobin was 7.1, platelets were 44. Sodium was 136, potassium was 4.3, creatinine was 1.2. Magnesium was normal at 1.7. Chest x-ray showed mild diffuse interstitial prominence. RVP was ordered, pending. Patient was admitted for platelet transfusion, PRBC transfusion, antibiotics for possible pneumonia, and closer monitoring of low blood pressure. 03/02/2024: Patient feels well, No complaints. Overnight events indicated Continued bleeding with ER Gutierrez catheter. 03/03/2024: Patient is status post cystoscopy. Patient feels well. Has no complaints. will bring in his CPAP machine. 03/04/2024: Patient is feeling well, no complaints. He is much more awake than on previous days Current Medications Current Medications Current Medications: Current Medications Generic Name Dose Route Start Last Admin Trade Name Freq PRN Reason Stop Dose Admin Acetaminophen 650 mg 03/01/24 16:47 Acetaminophen 325 Mg Tablet PO Q4HR PRN Pain 1 to 4, or Fever Allopurinol 300 mg 03/02/24 09:00 03/04/24 08:25 Allopurinol 100 Mg Tablet PO 300 mg DAILY ILDA Administration Folic Acid 1 mg 03/02/24 09:00 03/04/24 08:26 Folic Acid 1 Mg Tablet PO 1 mg DAILY ILDA Administration Hydroxyurea 500 mg 03/02/24 09:00 03/04/24 08:26 Hydroxyurea 500 Mg Capsule PO 500 mg DAILY ILDA Administration Azithromycin 500 mg/ Sodium 250 mls @ 250 mls/hr 03/02/24 09:00 03/02/24 10:15 Chloride IV 03/05/24 09:59 Infused DAILY ILDA Infusion Lactated Ringer's 1,000 mls @ 83.333 mls/hr 03/01/24 17:00 03/04/24 06:01 Lr IV 83.3 mls/hr .Q12H ILDA Administration Ceftriaxone Sodium 1 gm/ 100 mls @ 200 mls/hr 03/04/24 08:30 03/04/24 08:25 Sodium Chloride IV 03/05/24 08:59 200 mls/hr Q24H ILDA Administration Ondansetron HCl 4 mg 03/01/24 16:47 Ondansetron Odt 4 Mg Tablet TL Q6HR PRN Nausea / Vomiting Ondansetron HCl 4 mg 03/01/24 16:47 Ondansetron 4 Mg/2 Ml Vial IVP Q6HR PRN Nausea / Vomiting Saccharomyces Boulardii 250 mg 03/02/24 08:00 03/04/24 08:26 Saccharomyces Boulardii 250 Mg Capsule PO 250 mg BIDWM ILDA Administration Sodium Chloride 10 ml 03/01/24 16:47 Sodium Chloride Flush 0.9% 10 Ml Syringe IVP PRN PRN NEEDED PER PROVIDER ORDERS Sodium Chloride 10 ml 03/01/24 17:00 03/04/24 04:42 Sodium Chloride Flush 0.9% 10 Ml Syringe IVP Not Given 0100,0900,1700 ILDA Objective Vital Signs/Intake & Output Reviewed Vital Signs: Yes Vital Signs: Vital Signs x48h Temp Pulse Resp BP Pulse Ox 03/04/24 08:35 36.5 C 96 20 123/65 98 03/04/24 04:20 36.6 C 89 18 121/68 98 03/04/24 01:00 36.4 C L 90 18 125/70 97 Intake & Output: Intake & Output 03/01/24 03/02/24 03/03/24 03/04/24 23:59 23:59 23:59 23:59 Intake Total 2262 / 2262 01939 / 12457 4439 / 4439 977 / 977 Output Total 950 / 950 66563 / 76911 1725 / 1725 850 / 850 Balance 1312 / 1312 -665 / -665 2714 / 2714 127 / 127 Weight (kg) 74.5 kg Objective General Appearance: positive No acute distress and Alert Eyes Bilateral: positive Normal inspection and PERRL ENT: positive ENT inspection nml Neck: positive Nml inspection and Trachea midline Respiratory: positive Chest non-tender and No respiratory distress Cardiovascular: positive Regular rate & rhythm and No murmur Abdomen: positive Non-tender and No organomegaly Skin: positive Color nml and No rash Extremities: positive Non-tender and Full ROM Neurologic/Psychiatric: positive Oriented x3 and CN's nml (2-12) Lab Results 03/04/24 05:54 03/04/24 05:54 Other Labs: Lab Results x24hrs 03/04/24 03/04/24 03/04/24 Range/Units 05:54 05:54 00:37 WBC 30.0 H (4.8-10.8) x10^3/uL RBC 2.70 L (4.70-6.10) 10^6/uL Hgb 7.9 L 7.6 L (14.0-18.0) g/dL Hct 25.2 L 23.3 L (42.0-52.0) % MCV 93.3 (80.0-94.0) fL MCH 29.3 (27.0-31.0) pg MCHC 31.3 L (32.0-36.0) g/dL RDW 18.3 H (12.0-15.0) % Plt Count 45 L (130-450) 10^3/uL MPV 13.0 H (7.4-11.4) fL Neut # (Auto) Not Reportable Lymph # (Auto) Not Reportable [place]pp # (Auto) Not Reportable Eos # (Auto) Not Reportable Baso # (Auto) Not Reportable Absolute Nucleated RBC Not Reportable Total Counted 100 Band Neuts % (Manual) 6 (0 - 10) % Abnorm Lymph % (Manual) 0 % Metamyelocytes % 5 H ( - 0) % Myelocytes % 7 H ( - 0) % Promyelocytes % 1 H ( - 0) % Blast Cells % 2 H* % Nucleated RBC % Not Reportable Neutrophils # (Manual) 17.1 H (1.5-6.6) 10^3/uL Lymphocytes # (Manual) 3.3 (1.5-3.5) 10^3/uL Monocytes # (Manual) 3.9 H (0.0-1.0) 10^3/uL Eosinophils # (Manual) 0.3 (0-0.7) 10^3/uL Basophils # (Manual) 0.9 H (0-0.1) 10^3/uL Nucleated RBCs 3 % Differential Comment MANUAL DIFFERENTIAL Platelet Estimate DECREASED (<130,000) (NORMAL) RBC Morph Micro Appear 1+ POLYCHROMASIA 1+ HYPOCHROMASIA (NORMAL) Sodium 138 (135-145) mmol/L Potassium 3.6 (3.5-4.5) mmol/L Chloride 109 (101-111) mmol/L Carbon Dioxide 25 (21-32) mmol/L Anion Gap 4.0 L (6-13) BUN 15 (6-20) mg/dL Creatinine 1.0 (0.6-1.3) mg/dL Estimated GFR (MDRD) 72 L (>89) Glucose 93 (74-104) mg/dL Calcium 7.8 L (8.5-10.3) mg/dL Blood Type Antibody Screen Crossmatch IS Only 03/03/24 03/03/24 03/01/24 Range/Units 18:03 12:49 13:27 WBC (4.8-10.8) x10^3/uL RBC (4.70-6.10) 10^6/uL Hgb 8.7 L 8.3 L (14.0-18.0) g/dL Hct 27.4 L 26.2 L (42.0-52.0) % MCV (80.0-94.0) fL MCH (27.0-31.0) pg MCHC (32.0-36.0) g/dL RDW (12.0-15.0) % Plt Count (130-450) 10^3/uL MPV (7.4-11.4) fL Neut # (Auto) Lymph # (Auto) [place]pp # (Auto) Eos # (Auto) Baso # (Auto) Absolute Nucleated RBC Total Counted Band Neuts % (Manual) (0 - 10) % Abnorm Lymph % (Manual) % Metamyelocytes % ( - 0) % Myelocytes % ( - 0) % Promyelocytes % ( - 0) % Blast Cells % % Nucleated RBC % Neutrophils # (Manual) (1.5-6.6) 10^3/uL Lymphocytes # (Manual) (1.5-3.5) 10^3/uL Monocytes # (Manual) (0.0-1.0) 10^3/uL Eosinophils # (Manual) (0-0.7) 10^3/uL Basophils # (Manual) (0-0.1) 10^3/uL Nucleated RBCs % Differential Comment Platelet Estimate (NORMAL) RBC Morph Micro Appear (NORMAL) Sodium (135-145) mmol/L Potassium (3.5-4.5) mmol/L Chloride (101-111) mmol/L Carbon Dioxide (21-32) mmol/L Anion Gap (6-13) BUN (6-20) mg/dL Creatinine (0.6-1.3) mg/dL Estimated GFR (MDRD) (>89) Glucose (74-104) mg/dL Calcium (8.5-10.3) mg/dL Blood Type O POSITIVE Antibody Screen NEGATIVE Crossmatch IS Only See Detail Diagnostic Imaging Diagnostic Imaging Results: positive Final report reviewed Assessment/Plan Problem List (1) Urethral bleeding: Impression: Status post cystoscopy, clot evacuation and Fulguration day 2. No more active bleeding. Urology has signed off and will see patient as an out patient upon discharge. Upon discharge leave Gutierrez in place. (2) RSV (respiratory syncytial virus infection): Impression: Continue supportive management Qualifiers: RSV infection type: unspecified Qualified Code(s): B33.8 - Other specified viral diseases (3) Community acquired pneumonia: Impression: Patient is immunocompromise due to CML and hydroxyurea administration. Patient is a high chance of bacterial pneumonia in the background of viral pneumonia. Continue Rocephin 3/5 and azithromycin 2/3. Patient can be discharged on oral Antibiotics tomorrow Qualifiers: Laterality: unspecified laterality Qualified Code(s): J18.9 - Pneumonia, unspecified organism (4) Anemia: Impression: Resolved, H&H is stable overnight. Continue to monitor for active bleeding. Qualifiers: Anemia type: other cause Other causes of anemia: chronic disease, neoplastic Qualified Code(s): D63.0 - Anemia in neoplastic disease (5) Thrombocytopenia: Impression: Chronic thrombocytopenia. Platelets are down to 45. Recommendation to transfuse platelets as platelets are below 10. 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 Restart patient on Home hydroxyurea and allopurinol. Patient will need to follow-up with his oncologist Dr. Perez as an outpatient. Monitor for Blast crisis (7) Sleep apnea: Impression: Home CPAP Qualifiers: Sleep apnea type: unspecified type Qualified Code(s): G47.30 - Sleep apnea, unspecified
[2024-03-04 11:52] VITALS: TEMP 97.5
[2024-03-04 12:04] LABS: HCT - HEMATOCRIT 26.7 % (42.0-52.0); HGB - HEMOGLOBIN 8.6 g/dL (14.0-18.0)
[2024-03-04] MEDS: MULTIVITAMIN W/MINERALS TABLET PO SCH (17:09)
[2024-03-05 06:24] LABS: BASOPHILS % (AUTO) 2.3 %; EOSINOPHILS % (AUTO) 0.8 %; HCT - HEMATOCRIT 25.7 % (42.0-52.0); HGB - HEMOGLOBIN 8.1 g/dL (14.0-18.0); LYMPHOCYTES % (AUTO) 4.3 %; MEAN CORPUSCULAR HEMOGLOBIN 29.1 pg (27.0-31.0); MEAN CORPUSCULAR HGB CONC 31.5 g/dL (32.0-36.0); MEAN CORPUSCULAR VOLUME 92.4 fL (80.0-94.0); MONOCYTES % (AUTO) 22.3 %; NEUTROPHILS % (AUTO) 51.7 %; PLT - PLATELET COUNT 43 10^3/uL (130-450); RED BLOOD COUNT 2.78 10^6/uL (4.70-6.10); RED CELL DISTRIBUTION WIDTH 18.9 % (12.0-15.0)
[2024-03-05 06:35] LABS: ABNORMAL LYMPHS % (MANUAL) 0 %
[2024-03-05 06:41] LABS: CALCIUM 7.8 mg/dL (8.5-10.3); POTASSIUM 3.3 mmol/L (3.5-4.5)
[2024-03-05 07:36] LABS: BAND NEUTROPHILS % (MANUAL) 7 %; BASOPHILS # (MANUAL) 0.3 10^3/uL (0-0.1); BASOPHILS % (MANUAL) 1 %; EOSINOPHILS # (MANUAL) 1.1 10^3/uL (0-0.7); LYMPHOCYTES # (MANUAL) 3.5 10^3/uL (1.5-3.5); LYMPHOCYTES % (MANUAL) 13 %; METAMYELOCYTES % (MANUAL) 5 %; MONOCYTES # (MANUAL) 3.8 10^3/uL (0.0-1.0); MYELOCYTES % (MANUAL) 2 %; NEUTROPHILS # (MANUAL) 16.5 10^3/uL (1.5-6.6); NUCLEATED RBC (MANUAL) 8 %
[2024-03-05 07:38] LABS: DIFFERENTIAL COMMENT MANUAL DIFFERENTIAL; PLATELET ESTIMATE, MANUAL DECREASED (<130,000) (NORMAL); PLATELET MORPHOLOGY NORMAL APPEARANCE (NORMAL)
[2024-03-05 08:58] VITALS: BP 130/78; O2SAT 98
--- NOTE | 2024-03-05 11:24 | Discharge Summary ---
"Discharge Summary Admit Date: 03/01/24 Discharge Date: 03/05/24 Discharging Provider: solitario DIAGNOSES Admission Diagnoses: UTI Urethral bleeding RSV pneumonia Community-acquired pneumonia Acute blood loss anemia CML Discharge Diagnoses with Status of Each Condition: UTI - resolved Urethral bleeding - resolved RSV pneumonia - resolved Community-acquired pneumonia - resolved Acute blood loss anemia - resolved CML - chronic HPI History of Present Illness: Patient is a 78-year-old male with a history of MDS/CMML, benign prostatic hypertrophy resulting in straight catheterizations required every 2-3 hours, who presents with bleeding around his urethra. He stated he was straight catheterizing himself, when he noticed increased bleeding around site. He was then brought to the emergency room. The emergency room physician did speak with Dr. Sandoval, who recommended a unit of platelets, a unit of blood, as well as Gutierrez catheter placement for reduced irritation. Patient states that he has been self catheterizing for about 15 years. 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 He has had some fatigue, decreased appetite, as well as decreased p.o. intake at home. He also has had a persistent cough, which is worsened in the last 2 to 3 days. He has night sweats, chills. This morning, he stated that he went into a coughing fit, and ended up throwing up his breakfast. In the emergency room, he was hypotensive with blood pressure of 96/56, heart rate was 98, respiratory rate was 18, he was afebrile, saturating 98% on room air. On physical exam, he has some diffuse Rales, located more prominently in his bibasilar region. He has some pitting edema in his lower extremities. Abdominal exam reveals splenomegaly. He is very pale, and cachectic in appearance. Lab work was reviewedit did show leukocytosis of 42, which appears to be around his baseline. Hemoglobin was 7.1, platelets were 44. Sodium was 136, potassium was 4.3, creatinine was 1.2. Magnesium was normal at 1.7. Chest x-ray showed mild diffuse interstitial prominence. RVP was ordered, pending. Patient was admitted for platelet transfusion, PRBC transfusion, antibiotics for possible pneumonia, and closer monitoring of low blood pressure. 03/02/2024: Patient feels well, No complaints. Overnight events indicated Continued bleeding with ER Gutierrez catheter. 03/03/2024: Patient is status post cystoscopy. Patient feels well. Has no complaints. will bring in his CPAP machine. 03/04/2024: Patient is feeling well, no complaints. He is much more awake than on previous days CONSULTS | PROCEDURES Consultations: Urology Procedures: Cystoscopy, insertion of three-way Gutierrez HOSPITAL COURSE Hospital Course: You are admitted for a urethral bleed likely secondary to repeated straight catheterization and possible trauma. On admission her hemoglobin was low and you were given repeated RBCs. Your hemoglobin has been stable since Cystoscopy and Loop Cauterization of the right posterior bladder bleed by Dr. Littlejohn. Whitney and left a 22 Zimbabwean three-way Gutierrez catheter. Per Dr. Littlejohn: Please remove your catheter as instructed on Friday03/09/24 in the morning. Resume your intermittent catheterization regimen after this. If significant bleeding occurs again from intermittent catheterization then please let Dr. Littlejohn know. On admission he also tested positive for RSV pneumonia. He was started on Rocephin and azithromycin due to the high risk for bacterial pneumonia since you are immune suppressed secondary to CML and hydroxyurea administration. Please take Augmentin which has been prescribed, twice a day for 3 days To complete a 5-day antibiotic regimen. During the hospital stay your CML was well-controlled. You were restarted on hydroxyurea and allopurinol on 03/04/2024. Please follow-up with your oncologist as needed. ALLERGIES Allergies Allergy/AdvReac Type Severity Reaction Status Date / Time Sulfa (Sulfonamide Allergy Severe Unknown Verified 03/01/24 10:28 Antibiotics) MEDICATIONS Ambulatory Orders Medication Instructions Recorded Confirmed ibuprofen 200 mg tablet (IBU-200) 2 tab PO DAILY PM PRN Pain 1-4 09/20/22 03/01/24 Bacillus coagulans 1 cap PO DAILY 01/22/24 03/02/24 allopurinol 300 mg tablet 300 mg PO DAILY 03/01/24 03/01/24 ergocalciferol (vitamin D2) 1,250 1,250 mcg PO DAILY 03/01/24 03/01/24 mcg (50,000 unit) capsule (Vitamin D2) folic acid 1 mg tablet 1 mg PO DAILY 03/01/24 03/01/24 hydroxyurea 500 mg capsule 500 mg PO DAILY 03/01/24 03/01/24 amoxicillin 500 mg-potassium 1 tab PO BID #6 tabs 03/05/24 clavulanate 125 mg tablet (Augmentin) PHYSICAL EXAM AT DISCHARGE General Appearance: positive No acute distress and Alert Eyes Bilateral: positive Normal inspection and PERRL ENT: positive ENT inspection nml and Pharynx nml Neck: positive Nml inspection and Trachea midline Respiratory: positive Chest non-tender and No respiratory distress Cardiovascular: positive Regular rate & rhythm and No murmur Abdomen: positive Non-tender and No organomegaly Skin: positive Color nml and No rash Extremities: positive Non-tender and Full ROM Neurologic/Psychiatric: positive Oriented x3 and CN's nml (2-12) LABS 03/05/24 05:41 03/05/24 05:41 TIME SPENT Time Spent in Discharge (Minutes): 35 Discharge Plan Discharge Patient Disposition: Home, Self Care Condition: Stable Prescriptions: New amoxicillin-pot clavulanate [Augmentin] 500-125 mg tablet 1 tab PO BID Qty: 6 0RF Rx Instructions: please take 1 tab twice a day with food Continued ibuprofen [IBU-200] 200 MG tablet 2 tab PO DAILY PM PRN (Reason: Pain 1-4) hydroxyurea 500 mg capsule 500 mg PO DAILY folic acid 1 mg tablet 1 mg PO DAILY allopurinol 300 mg tablet 300 mg PO DAILY ergocalciferol (vitamin D2) [Vitamin D2] 1,250 mcg (50,000 unit) capsule 1,250 mcg PO DAILY Patient Comments: Patient says he's taking once weekly. Bacillus coagulans [Probiotic (B. coagulans)] 1 cap PO DAILY Rx Instructions: Take as directed once daily Health Concerns: You were admitted for a urethral bleed likely secondary to repeated straight catheterization and possible trauma. On admission her hemoglobin was low and you were given repeated RBCs. Your hemoglobin has been stable since Cystoscopy and Loop Cauterization of the right posterior bladder bleed by Dr. Littlejohn. Dr. Whitney and left a 22 Zimbabwean three-way Gutierrez catheter. Per Dr. Littlejohn: Please remove your catheter as instructed on Friday03/09/24 in the morning. Resume your intermittent catheterization regimen after this. If significant bleeding occurs again from intermittent catheterization then please let Dr. Littlejohn know. On admission he also tested positive for RSV pneumonia. He was started on Rocephin and azithromycin due to the high risk for bacterial pneumonia since you are immune suppressed secondary to CML and hydroxyurea administration. Please take Augmentin which has been prescribed, twice a day for 3 days To complete a 5-day antibiotic regimen. During the hospital stay your CML was well-controlled. You were restarted on hydroxyurea and allopurinol on 03/04/2024. Please follow-up with your oncologist as needed. Plan of Treatment: Please remove your catheter as instructed on Friday03/09/24 in the morning. Resume your intermittent catheterization regimen after this. If significant bleeding occurs again from intermittent catheterization then please let Dr. Littlejohn know Print Language: Telugu Patient Instructions: Surgery Anesthesia After, Gutierrez Catheter Remove, Pneumonia, Catheter Bag Urinary Empty Clean, Catheter Indwelling Urinary Dc, Leg Bag Care Dc Stand Alone Forms: PCP List Follow-up Care: Nadya Severino ARNP [Primary Care Provider] -"
[2024-03-05] MEDS: POTASSIUM CHLORIDE 20 MEQ TABLET PO ONE (14:02)
--- NOTE | 2024-03-09 12:56 | CONSULTATION NOTE ---
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 Last week he presented with gross hematuria after catheterizing himself. This required blood and platelet transfusion along with a clot evacuation and fulguration of bleeding areas. He did very well after this but was sent home with a catheter. He was instructed to remove the catheter this morning. He was given both verbal and written instructions on proper catheter removal. He states this morning he removed some fluid from the balloon but he became impatient when he felt the catheter out with the balloon mostly inflated. This resulted in significant bleeding unsurprisingly. He presented to the ER. A 22 Greek three-way Gutierrez catheter was placed. At the time of my evaluation he had had a full bag of irrigation and his urine was quite clear. His hemoglobin is low at 6.4, platelets 32 He will be given a transfusion per [facility] Medical History Medical History History of retinal detachment Surgical History Surgical History Hx of detached retina repair Social History Social History (Updated 03/09/24 @ 11:13 by Luís Méndez RN) Smoking Status: Former smoker If you are a former smoker, when did you quit? (Date/Year): 1966 Second hand tobacco smoke exposure: No Do you dip or chew tobacco?: No Do you vape?: No Living arrangement: At home Marital Status: Living Condition: With spouse/s.o. 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 Service: Yes Dates of Service: [id number] Are you following a diet prescribed by a doctor: No Are you following a special diet: Yes (Golo Diet) POLST Patient has POLST: No POLST Status: Full Code Meds/Allgy Home Medications Ambulatory Orders Medication Instructions Recorded Confirmed Bacillus coagulans 1 cap PO DAILY 01/22/24 03/09/24 allopurinol 300 mg tablet 300 mg PO DAILY 03/01/24 03/09/24 ergocalciferol (vitamin D2) 1,250 1,250 mcg PO DAILY 03/01/24 03/09/24 mcg (50,000 unit) capsule (Vitamin D2) folic acid 1 mg tablet 1 mg PO DAILY 03/01/24 03/09/24 hydroxyurea 500 mg capsule 500 mg PO DAILY 03/01/24 03/09/24 amoxicillin 500 mg-potassium 1 tab PO BID #6 tabs 03/05/24 03/09/24 clavulanate 125 mg tablet (Augmentin) Allergies Allergies Allergy/AdvReac Type Severity Reaction Status Date / Time Sulfa (Sulfonamide Allergy Severe Unknown Verified 03/09/24 11:04 Antibiotics) Results Lab Results 03/05/24 05:41 03/05/24 05:41 Conclusion and Plan Diagnosis Diagnosis: Gross hematuria secondary to traumatic catheter removal Plan Plan: I recommend transfusion as per ER policy. Stop CBI after this bag. I suspect can go home later today with catheter in place. I will arrange follow-up in 3 weeks time for catheter removal in the office. He should not remove the catheter himself He should remain n.p.o. for now until discharge My office will arrange follow-up in roughly 3 weeks time for catheter removal Exam Exam NAD elderly [address], clear effluent on medium drip CBI
== END 2024-03-05 14:03 | disposition home or self-care (01) | DRG 662 ==
LOC: ED 10:17 → MS2 15:58
PROVIDERS: ADMIT Internal Medicine; ATTEND Internal Medicine
DX: R16.1 Splenomegaly, not elsewhere classified; R60.0 Localized edema; C91.10 Chronic lymphocytic leukemia of B-cell type not having achieved remission; R33.8 Other retention of urine; R05.9 Cough, unspecified; Z68.25 Body mass index [BMI] 25.0-25.9, adult; D63.0 Anemia in neoplastic disease; D46.9 Myelodysplastic syndrome, unspecified; Z20.822 Contact with and (suspected) exposure to COVID-19; Z20.828 Contact with and (suspected) exposure to other viral communicable diseases; Z20.818 Contact with and (suspected) exposure to other bacterial communicable diseases; S37.39XA Other injury of urethra, initial encounter; Z87.891 Personal history of nicotine dependence; R31.0 Gross hematuria; R33.9 Retention of urine, unspecified; I95.9 Hypotension, unspecified; N31.2 Flaccid neuropathic bladder, not elsewhere classified; N39.0 Urinary tract infection, site not specified; J12.1 Respiratory syncytial virus pneumonia; N40.1 Benign prostatic hyperplasia with lower urinary tract symptoms; R64 Cachexia; C93.10 Chronic myelomonocytic leukemia not having achieved remission; D69.6 Thrombocytopenia, unspecified; D62 Acute posthemorrhagic anemia; X58.XXXA Exposure to other specified factors, initial encounter; G47.30 Sleep apnea, unspecified

== ENCOUNTER 2024-03-10 18:12 | Inpatient (IN) ==
[2024-03-10 20:16] LABS: BASOPHILS % (AUTO) 1.6 %; EOSINOPHILS % (AUTO) 0.6 %; HCT - HEMATOCRIT 21.1 % (42.0-52.0); LYMPHOCYTES % (AUTO) 5.2 %; MEAN CORPUSCULAR HGB CONC 31.3 g/dL (32.0-36.0); MEAN CORPUSCULAR VOLUME 95.9 fL (80.0-94.0); MEAN PLATELET VOLUME 12.5 fL (7.4-11.4); MONOCYTES % (AUTO) 25.7 %; NEUTROPHILS % (AUTO) 45.6 %; PLT - PLATELET COUNT 73 10^3/uL (130-450); RED CELL DISTRIBUTION WIDTH 19.9 % (12.0-15.0); WHITE BLOOD COUNT 22.2 x10^3/uL (4.8-10.8)
[2024-03-10 20:20] LABS: HGB - HEMOGLOBIN 6.6 g/dL (14.0-18.0)
[2024-03-10 20:24] LABS: ALBUMIN 3.3 g/dL (3.2-5.5); ALBUMIN/GLOBULIN RATIO 1.4 (1.0-2.2); BILIRUBIN,TOTAL 1.1 mg/dL (0.2-1.0); CALCIUM 8.2 mg/dL (8.5-10.3); CREATININE 1.3 mg/dL (0.6-1.3); POTASSIUM 3.5 mmol/L (3.5-4.5); TOTAL PROTEIN 5.6 g/dL (6.4-8.9)
--- NOTE | 2024-03-10 21:01 | ED Physician Documentation ---
History of Present Illness Stated complaint Stated Complaint: BLEED Chief complaint Chief Complaint: General History obtained from History obtained from: Patient History of Present Illness Timing: Yesterday Pain level max: 0 Pain level now: 0 Additonal information Additional information: 78-year-old male, history of CLL, presents to the emergency department after being seen here yesterday for hematuria and anemia after pulling out his Gutierrez catheter with the balloon inflated. A new Gutierrez catheter was placed, the bladder was irrigated until urine was clear. Began to have hematuria again today. He was at the [facility] receiving a platelet transfusion and was sent here for further evaluation. No fevers. No chills. No syncope or near syncope. Not anticoagulated. Meds/Allgy Home Medications Ambulatory Orders Medication Instructions Recorded Confirmed Bacillus coagulans 1 cap PO DAILY 01/22/24 03/09/24 allopurinol 300 mg tablet 300 mg PO DAILY 03/01/24 03/09/24 ergocalciferol (vitamin D2) 1,250 1,250 mcg PO DAILY 03/01/24 03/09/24 mcg (50,000 unit) capsule (Vitamin D2) folic acid 1 mg tablet 1 mg PO DAILY 03/01/24 03/09/24 hydroxyurea 500 mg capsule 500 mg PO DAILY 03/01/24 03/09/24 amoxicillin 500 mg-potassium 1 tab PO BID #6 tabs 03/05/24 03/09/24 clavulanate 125 mg tablet (Augmentin) Allergies Allergies Allergy/AdvReac Type Severity Reaction Status Date / Time Sulfa (Sulfonamide Allergy Severe Unknown Verified 03/10/24 19:15 Antibiotics) [facility] Medical History Medical History History of retinal detachment Surgical History Surgical History Hx of detached retina repair Social History Social History Smoking Status: Former smoker If you are a former smoker, when did you quit? (Date/Year): 1966 Second hand tobacco smoke exposure: No Do you dip or chew tobacco?: No Do you vape?: No Living arrangement: At home Marital Status: Living Condition: With spouse/s.o. Support Person: No Relationship: How many days per week?: 7 Level: Independent Do you feel safe in your home environment?: Yes Suffered physical, verbal, emotional, or financial abuse?: No History of Abuse: No ETOH Use: None Frequency: Occasional Substance Use: denies use Occupation: [employer]inter [employer] Retired: Yes Service: Yes Dates of Service: [id number] Are you following a diet prescribed by a doctor: No Are you following a special diet: Yes (Golo Diet) POLST Patient has POLST: No POLST Status: Full Code Exam Constitutional normal general appearance and no apparent distress HENMT oropharynx normal moist mucous membranes Eyes PERRL Neck/C-Spine visual inspection normal Respiratory breath sounds equal bilaterally, normal respiratory effort and clear to auscultation bilaterally Cardiovascular normal heart rate noted and regular rhythm noted Gastrointestinal abdomen normal to inspection, abdomen soft to palpation, nontender to palpation and nondistended Genitourinary no CVA tenderness Extremities no deformity no edema Neurology speech normal Psychiatry mental status grossly normal and oriented x3 Skin skin color normal Results Vitals Vitals: Vital Signs - 24 hr 03/10/24 16:52 03/10/24 19:15 03/10/24 20:23 Temperature 37.3 C Temperature Source Oral Pulse Rate 110 H Respiratory Rate 18 Blood Pressure 90/55 L 94/52 L O2 Saturation 100 O2 Source Room air Room air Pain Intensity 0 03/10/24 20:58 03/10/24 21:12 Temperature Temperature Source Pulse Rate 100 102 H Respiratory Rate 16 18 Blood Pressure 98/48 L 105/57 L O2 Saturation 99 97 O2 Source Room air Room air Pain Intensity 0 0 Oxygen O2 Source Room air Labs Labs: Laboratory Tests 03/09/24 03/10/24 03/10/24 13:02 20:04 20:04 WBC 22.2 H RBC 2.20 L Hgb 6.6 L* Hct 21.1 L MCV 95.9 H MCH 30.0 MCHC 31.3 L RDW 19.9 H Plt Count 73 L MPV 12.5 H Neut # (Auto) Not Reportable Lymph # (Auto) Not Reportable Mesa # (Auto) Not Reportable Eos # (Auto) Not Reportable Baso # (Auto) Not Reportable Absolute Nucleated RBC Not Reportable Total Counted 100 Band Neuts % (Manual) 3 Abnorm Lymph % (Manual) 2 Metamyelocytes % 2 H Myelocytes % 4 H Nucleated RBC % Not Reportable Neutrophils # (Manual) 15.8 H Lymphocytes # (Manual) 2.4 Monocytes # (Manual) 2.2 H Eosinophils # (Manual) 0.4 Basophils # (Manual) 0.0 Nucleated RBCs 2 Differential Comment MANUAL DIFFERENTIAL WBC Morphology 1+ HYPERSEG NEUT TOXIC GRANULATION Platelet Estimate DECREASED (<130,000) Platelet Morphology 1+ LARGE PLATELETS RBC Morph Micro Appear 2+ ANISOCYTOSIS Sodium Potassium Chloride Carbon Dioxide Anion Gap BUN Creatinine Estimated GFR (MDRD) Glucose Calcium Total Bilirubin AST ALT Alkaline Phosphatase Total Protein Albumin Globulin Albumin/Globulin Ratio Lipase Blood Type O POSITIVE Antibody Screen NEGATIVE Crossmatch IS Only See Detail 03/10/24 03/10/24 03/10/24 20:04 20:04 20:04 WBC RBC Hgb Hct MCV MCH MCHC RDW Plt Count MPV Neut # (Auto) Lymph # (Auto) Mesa # (Auto) Eos # (Auto) Baso # (Auto) Absolute Nucleated RBC Total Counted Band Neuts % (Manual) Abnorm Lymph % (Manual) Metamyelocytes % Myelocytes % Nucleated RBC % Neutrophils # (Manual) Lymphocytes # (Manual) Monocytes # (Manual) Eosinophils # (Manual) Basophils # (Manual) Nucleated RBCs Differential Comment WBC Morphology Platelet Estimate Platelet Morphology RBC Morph Micro Appear 1+ HYPOCHROMASIA 2+ MICROCYTOSIS 1+ POLYCHROMASIA Sodium 139 Potassium 3.5 Chloride 106 Carbon Dioxide 27 Anion Gap 6.0 BUN 21 H Creatinine 1.3 Estimated GFR (MDRD) 54 L Glucose 141 H Calcium 8.2 L Total Bilirubin 1.1 H AST 15 ALT 11 Alkaline Phosphatase 87 Total Protein 5.6 L Albumin 3.3 Globulin 2.3 Albumin/Globulin Ratio 1.4 Lipase 32 Blood Type Antibody Screen Crossmatch IS Only PD Medical Decision Making ED course Complexity details: reviewed results, considered differential, d/w patient and d/w family ED course: Patient with continued hematuria. He also has significant anemia. Nontoxic. Afebrile. He also is going to require another blood transfusion. Discussed the case with Dr. Littlejohn, urology, recommends CBI, admit to the hospitalist. Recommends blood transfusion and he will plan on taking the patient to the OR in the morning. Recommends n.p.o. after midnight. Discussed the case with the hospitalist who accepts. This document was made in part using voice recognition software. While efforts are made to proofread this document, sound alike and grammatical errors may occur. Discharge Plan Discharge Patient Disposition: 66 [facility] DC/Xfer Condition: Stable Clinical Impression: Bladder atonia, Thrombocytopenia Hematuria Qualifiers: Hematuria type: gross Qualified Code(s): R31.0 - Gross hematuria Anemia Qualifiers: Anemia type: unspecified type Qualified Code(s): D64.9 - Anemia, unspecified
[2024-03-10 21:34] LABS: ABNORMAL LYMPHS % (MANUAL) 2 %; BAND NEUTROPHILS % (MANUAL) 3 %; EOSINOPHILS # (MANUAL) 0.4 10^3/uL (0-0.7); LYMPHOCYTES # (MANUAL) 2.4 10^3/uL (1.5-3.5); LYMPHOCYTES % (MANUAL) 9 %; METAMYELOCYTES % (MANUAL) 2 %; MONOCYTES # (MANUAL) 2.2 10^3/uL (0.0-1.0); MYELOCYTES % (MANUAL) 4 %; NEUTROPHILS # (MANUAL) 15.8 10^3/uL (1.5-6.6); NUCLEATED RBC (MANUAL) 2 %
[2024-03-10 21:41] LABS: PLATELET ESTIMATE, MANUAL DECREASED (<130,000) (NORMAL); PLATELET MORPHOLOGY 1+ LARGE PLATELETS (NORMAL)
[2024-03-10 21:42] LABS: DIFFERENTIAL COMMENT MANUAL DIFFERENTIAL
--- NOTE | 2024-03-10 21:46 | HISTORY & PHYSICAL EXAMINATION ---
Chief Complaint Chief Complaint Chief Complaint: Hematuria History of Present Illness Admitted From Admitted From:: Home History Obtained From History obtained from: Patient interview History of Present Illness HPI Comment/Other: 78-year-old male with PMH significant for atonic bladder, for which she sees Dr. Littlejohn. 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 He was admitted here for hematuria, and discharged home with Gutierrez catheter. He was given instructions on how to remove this catheter, but when it was time he only partially deflated the balloon and the Gutierrez catheter and removed This catheter with significant amount of air still on it. He started bleeding after this happen, and went to the emergency department yesterday. He had a three-way catheter placed and CBI was started. He followed up with Dr. Littlejohn, and it had cleared up by that time. It started bleeding again today, so he presents to the ER. Dr. Littlejohn was contacted by the ER provider, and he plans to perform cystoscopy in a.m. and asked hospitalist team to admit Meds/Allgy Home Medications Ambulatory Orders Medication Instructions Recorded Confirmed Bacillus coagulans 1 cap PO DAILY 01/22/24 03/09/24 allopurinol 300 mg tablet 300 mg PO DAILY 03/01/24 03/09/24 ergocalciferol (vitamin D2) 1,250 1,250 mcg PO DAILY 03/01/24 03/09/24 mcg (50,000 unit) capsule (Vitamin D2) folic acid 1 mg tablet 1 mg PO DAILY 03/01/24 03/09/24 hydroxyurea 500 mg capsule 500 mg PO DAILY 03/01/24 03/09/24 amoxicillin 500 mg-potassium 1 tab PO BID #6 tabs 03/05/24 03/09/24 clavulanate 125 mg tablet (Augmentin) Allergies Allergies Allergy/AdvReac Type Severity Reaction Status Date / Time Sulfa (Sulfonamide Allergy Severe Unknown Verified 03/10/24 19:15 Antibiotics) [facility] Medical History Medical History History of retinal detachment Surgical History Surgical History Hx of detached retina repair Social History Social History (Updated 03/09/24 @ 11:13 by Luís Méndez RN) Smoking Status: Former smoker If you are a former smoker, when did you quit? (Date/Year): 1966 Second hand tobacco smoke exposure: No Do you dip or chew tobacco?: No Do you vape?: No Living arrangement: At home Marital Status: Living Condition: With spouse/s.o. 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 Service: Yes Dates of Service: [id number] Are you following a diet prescribed by a doctor: No Are you following a special diet: Yes (Golo Diet) POLST Patient has POLST: No POLST Status: Full Code Review of Systems Status of ROS: 10 or more systems reviewed and unremarkable except as noted in history and below Constitutional Denies: Fever or Chills Cardiovascular Denies: Irregular heart rate, chest pain or shortness of breath with exertion Respiratory Denies: Shortness of breath Gastrointestinal Denies: Abdominal pain Genitourinary Reports: Blood in urine; Denies: Painful urination Exam Constitutional normal general appearance and no apparent distress HENMT normocephalic, head/scalp atraumatic and dentition abnormal Eyes PERRL Neck/C-Spine visual inspection normal Chest inspection of chest normal Respiratory breath sounds equal bilaterally and normal respiratory effort Cardiovascular normal heart rate noted Gastrointestinal abdomen normal to inspection Genitourinary Gutierrez in place with bloody output Extremities normal to inspection Skin skin color normal Conclusion/Plan Problem List (1) Anemia: Plan: Placed in observation 1 unit PRBC CBC in a.m. Manage hematuria as below (2) Hematuria: Plan: Urology consulted by ER provider Plan for cystoscopy in a.m. N.p.o. after midnight Plan Placed in observation Full code is his surrogate decision-maker Lab Results Lab results reviewed: Yes 03/10/24 20:04 03/10/24 20:04 Core Measures Anticipated LOS I expect patient to be DC'd or transferred within 96 hours.: Yes DVT/VTE - Prophylaxis VTE/DVT Device ordered at admit?: Yes VTE/DVT Prophylaxis med ordered at admit?: No
[2024-03-10] MEDS ORDERED: ONDANSETRON ODT 4 MG TABLET TL PRN (22:14)
[2024-03-10] MEDS ORDERED: ACETAMINOPHEN 325 MG TABLET PO PRN (22:14)
[2024-03-10] MEDS ORDERED: SODIUM CHLORIDE FLUSH 0.9% 10 ML SYRINGE IVP PRN (22:14)
[2024-03-10] MEDS ORDERED: ONDANSETRON 4 MG/2 ML VIAL IVP PRN (22:14)
[2024-03-11] MEDS: SODIUM CHLORIDE FLUSH 0.9% 10 ML SYRINGE IVP SCH (00:48)
[2024-03-11 06:11] LABS: BASOPHILS % (AUTO) 1.5 %; EOSINOPHILS % (AUTO) 1.5 %; LYMPHOCYTES % (AUTO) 6.8 %; MEAN CORPUSCULAR HEMOGLOBIN 29.7 pg (27.0-31.0); MEAN CORPUSCULAR HGB CONC 31.5 g/dL (32.0-36.0); MEAN CORPUSCULAR VOLUME 94.3 fL (80.0-94.0); MEAN PLATELET VOLUME 13.7 fL (7.4-11.4); MONOCYTES % (AUTO) 28.1 %; NEUTROPHILS % (AUTO) 41.2 %; PLT - PLATELET COUNT 47 10^3/uL (130-450); RED BLOOD COUNT 2.09 10^6/uL (4.70-6.10); RED CELL DISTRIBUTION WIDTH 19.1 % (12.0-15.0); WHITE BLOOD COUNT 16.5 x10^3/uL (4.8-10.8)
[2024-03-11 06:16] LABS: HCT - HEMATOCRIT 19.7 % (42.0-52.0); HGB - HEMOGLOBIN 6.2 g/dL (14.0-18.0)
[2024-03-11 06:18] LABS: CALCIUM 7.6 mg/dL (8.5-10.3); CREATININE 1.1 mg/dL (0.6-1.3); POTASSIUM 3.4 mmol/L (3.5-4.5)
[2024-03-11 06:33] LABS: ABNORMAL LYMPHS % (MANUAL) 3 %; BAND NEUTROPHILS % (MANUAL) 4 %; BASOPHILS # (MANUAL) 0.2 10^3/uL (0-0.1); BASOPHILS % (MANUAL) 1 %; LYMPHOCYTES # (MANUAL) 2.3 10^3/uL (1.5-3.5); LYMPHOCYTES % (MANUAL) 11 %; METAMYELOCYTES % (MANUAL) 2 %; MONOCYTES # (MANUAL) 2.3 10^3/uL (0.0-1.0); MYELOCYTES % (MANUAL) 2 %; NEUTROPHILS # (MANUAL) 10.7 10^3/uL (1.5-6.6); NUCLEATED RBC (MANUAL) 4 %; PROMYELOCYTES % (MANUAL) 2 %
[2024-03-11 06:35] LABS: DIFFERENTIAL COMMENT MANUAL DIFFERENTIAL; PLATELET ESTIMATE, MANUAL DECREASED (<130,000) (NORMAL); PLATELET MORPHOLOGY NORMAL APPEARANCE (NORMAL)
--- NOTE | 2024-03-11 06:40 | PREOP HISTORY & PHYSICAL ---
Surgical History & Physical Chief Complaint/HPI Chief Complaint: hematuria History of Present Illness: 78-year-old male well-known to me for history of myelodysplastic syndrome and resulting pancytopenia, with noted anemia and thrombocytopenia requiring intermittent transfusions. Developed gross hematuria last week from clean intermittent catheterization trauma. This required him to go to the OR for clot evacuation and fulguration of a small bleeding area of his bladder along with h is prostate. He did extremely well after this for 1 week until he tore out his catheter without taking down the balloon resulting in more hematuria. He presented to the ER and a catheter was replaced 2 days ago. He was treated conservatively with easy clearance of bleeding. He was seen in the MAC clinic yesterday where there was concern that he was still bleeding. He was requiring further transfusions. For this reason he was recommended to go to the emergency room. He has been admitted overnight for monitoring. His hemoglobin despite transfusion is inappropriately low at 6.2, down from 6.6 yesterday His platelets remain low at 47 despite transfusion. He is afebrile, normotensive and has normal heart rate. Home Meds and Allergies Active Medications Generic Name Dose Route Start Last Admin Trade Name Freq PRN Reason Stop Dose Admin Acetaminophen 650 mg 03/10/24 22:14 Acetaminophen 325 Mg Tablet PO Q4HR PRN Pain 1 to 4, or Fever Cefazolin Sodium 2 gm/ Sodium 100 mls @ 200 mls/hr 03/11/24 08:01 Chloride IV 03/11/24 08:30 ONCE ONE Ondansetron HCl 4 mg 03/10/24 22:14 Ondansetron Odt 4 Mg Tablet TL Q6HR PRN Nausea / Vomiting Ondansetron HCl 4 mg 03/10/24 22:14 Ondansetron 4 Mg/2 Ml Vial IVP Q6HR PRN Nausea / Vomiting Sodium Chloride 10 ml 03/10/24 22:14 Sodium Chloride Flush 0.9% 10 Ml Syringe IVP PRN PRN NEEDED PER PROVIDER ORDERS Sodium Chloride 10 ml 03/11/24 01:00 03/11/24 08:01 Sodium Chloride Flush 0.9% 10 Ml Syringe IVP 10 ml 0100,0900,1700 ILDA Administration Bacillus coagulans 1 cap PO DAILY 01/22/24 allopurinol 300 mg tablet 300 mg PO DAILY 03/01/24 ergocalciferol (vitamin D2) 1,250 mcg (50,000 unit) capsule (Vitamin D2) 1,250 mcg PO DAILY 03/01/24 folic acid 1 mg tablet 1 mg PO DAILY 03/01/24 hydroxyurea 500 mg capsule 500 mg PO DAILY 03/01/24 amoxicillin 500 mg-potassium clavulanate 125 mg tablet (Augmentin) 1 tab PO BID #6 tabs 03/05/24 Allergies Allergy/AdvReac Type Severity Reaction Status Date / Time Sulfa (Sulfonamide Allergy Severe Unknown Verified 03/10/24 19:15 Antibiotics) Vital Signs O2 Saturation: 97 Patient Review Patient Review Pertinent Tests Reviewed [facility] Medical History Medical History History of retinal detachment Surgical History Surgical History Hx of detached retina repair Social History Social History Smoking Status: Former smoker If you are a former smoker, when did you quit? (Date/Year): 1966 Second hand tobacco smoke exposure: No Do you dip or chew tobacco?: No Do you vape?: No Living arrangement: At home Marital Status: Living Condition: With spouse/s.o. Support Person: No Relationship: How many days per week?: 7 Level: Independent Do you feel safe in your home environment?: Yes Suffered physical, verbal, emotional, or financial abuse?: No History of Abuse: No ETOH Use: None Frequency: Occasional Substance Use: denies use Occupation: [employer] Retired: Yes Service: Yes Dates of Service: [id number] Are you following a diet prescribed by a doctor: No Are you following a special diet: Yes (Golo Diet) POLST Patient has POLST: No POLST Status: Full Code Exam Exam NAD RRR CTA b/l [address] Assessment & Plan Assessment & Plan Assessment & Plan: 78yo M with Anemia and thrombocytopenia secondary to mild dysplastic syndrome, chronic urinary retention requiring intermittent catheterizations, now with gross hematuria after traumatic catheter removal by patient -N.p.o. and IV fluids -Transfuse as needed -Patient will be added on for cystoscopy, clot evacuation, fulguration of bleeding areas. Specific risks, benefits, alternatives were discussed with the patient. Risks of infection, bleeding, injury to adjacent structures, need for additional procedures, failure of therapy, need for prolonged catheterization, anesthesia risks including stroke, were discussed Patient states understanding and consents to the above plan
--- NOTE | 2024-03-11 12:18 | PHARMACY PROGRESS NOTE ---
Best Possible Medication History Admit Date and Time: 03/10/24 2144 Home Medications Medication Instructions Recorded Confirmed Type Bacillus coagulans 1 cap PO DAILY 01/22/24 03/11/24 History allopurinol 300 mg tablet 300 mg PO DAILY 03/01/24 03/11/24 History ergocalciferol (vitamin D2) 1,250 1,250 mcg PO .Fridays03/01/24 03/11/24 History mcg (50,000 unit) capsule (Vitamin D2) folic acid 1 mg tablet 1 mg PO DAILY 03/01/24 03/11/24 History hydroxyurea 500 mg capsule 500 mg PO DAILY 03/01/24 03/11/24 History Processed by: Pharmacy Medications reviewed in ED?: No Medication History completed: Yes Patient Interview: Completed (by pharmacy assistantPriyank) Secondary Source(s): Insurance records [facility] Statement: As the person ultimately responsible for medication therapy, providers are able to order a medication from an existing home medication list in [facility] via the "Reconcile Routine" prior to Confirmation of that medication by desktop support technician. Such practice is discouraged except when the physician, in their clinical judgment, deems that a medical need exists for a medication without regard to previous use.
--- NOTE | 2024-03-11 12:39 | PROVIDER PROGRESS NOTE ---
Subjective Prog Note Date Prog Note Date: 03/11/24 Subjective Pt reports feeling: No change Current Medications Current Medications Current Medications: Current Medications Generic Name Dose Route Start Last Admin Trade Name Darin PRN Reason Stop Dose Admin Acetaminophen 650 mg 03/10/24 22:14 Acetaminophen 325 Mg Tablet PO Q4HR PRN Pain 1 to 4, or Fever Ondansetron HCl 4 mg 03/10/24 22:14 Ondansetron Odt 4 Mg Tablet TL Q6HR PRN Nausea / Vomiting Ondansetron HCl 4 mg 03/10/24 22:14 Ondansetron 4 Mg/2 Ml Vial IVP Q6HR PRN Nausea / Vomiting Sodium Chloride 10 ml 03/10/24 22:14 Sodium Chloride Flush 0.9% 10 Ml Syringe IVP PRN PRN NEEDED PER PROVIDER ORDERS Sodium Chloride 10 ml 03/11/24 01:00 03/11/24 08:01 Sodium Chloride Flush 0.9% 10 Ml Syringe IVP 10 ml 0100,0900,1700 ILDA Administration Objective Vital Signs/Intake & Output Reviewed Vital Signs: Yes Vital Signs: Vital Signs x48h Temp Pulse Resp BP Pulse Ox 03/11/24 08:12 36.6 C 84 18 108/65 98 03/11/24 06:40 97 Intake & Output: Intake & Output 03/08/24 03/09/24 03/10/24 03/11/24 23:59 23:59 23:59 23:59 Intake Total 1999 0 / 0 360 / 360 Output Total 900 / 900 Balance 1999 0 / 0 -540 / -540 Weight (kg) 76.657 kg Objective General Appearance: positive No acute distress and Alert Eyes Bilateral: positive Normal inspection and PERRL ENT: positive ENT inspection nml Neck: positive Nml inspection and Trachea midline Respiratory: positive Chest non-tender and No respiratory distress Cardiovascular: positive Regular rate & rhythm and No murmur Abdomen: positive Non-tender and No organomegaly Skin: positive Color nml and No rash Extremities: positive Non-tender and Full ROM Neurologic/Psychiatric: positive Oriented x3 Lab Results 03/11/24 05:33 03/11/24 05:33 Other Labs: Lab Results x24hrs 03/11/24 03/11/24 03/10/24 Range/Units 05:33 05:33 20:04 WBC 16.5 H (4.8-10.8) x10^3/uL RBC 2.09 L (4.70-6.10) 10^6/uL Hgb 6.2 L* (14.0-18.0) g/dL Hct 19.7 L* (42.0-52.0) % MCV 94.3 H (80.0-94.0) fL MCH 29.7 (27.0-31.0) pg MCHC 31.5 L (32.0-36.0) g/dL RDW 19.1 H (12.0-15.0) % Plt Count 47 L (130-450) 10^3/uL MPV 13.7 H (7.4-11.4) fL Neut # (Auto) Not Reportable Lymph # (Auto) Not Reportable [place] # (Auto) Not Reportable Eos # (Auto) Not Reportable Baso # (Auto) Not Reportable Absolute Nucleated RBC Not Reportable Total Counted 100 Band Neuts % (Manual) 4 (0 - 10) % Abnorm Lymph % (Manual) 3 % Metamyelocytes % 2 H ( - 0) % Myelocytes % 2 H ( - 0) % Promyelocytes % 2 H ( - 0) % Nucleated RBC % Not Reportable Neutrophils # (Manual) 10.7 H (1.5-6.6) 10^3/uL Lymphocytes # (Manual) 2.3 (1.5-3.5) 10^3/uL Monocytes # (Manual) 2.3 H (0.0-1.0) 10^3/uL Eosinophils # (Manual) 0.0 (0-0.7) 10^3/uL Basophils # (Manual) 0.2 H (0-0.1) 10^3/uL Nucleated RBCs 4 % Differential Comment MANUAL DIFFERENTIAL WBC Morphology (NORMAL) Platelet Estimate DECREASED (<130,000) (NORMAL) Platelet Morphology NORMAL APPEARANCE (NORMAL) RBC Morph Micro Appear 1+ POLYCHROMASIA 1+ HYPOCHROMASIA 1+ POLYCHROMASIA (NORMAL) Sodium 139 139 (135-145) mmol/L Potassium 3.4 L 3.5 (3.5-4.5) mmol/L Chloride 108 106 (101-111) mmol/L Carbon Dioxide 26 27 (21-32) mmol/L Anion Gap 5.0 L 6.0 (6-13) BUN 20 21 H (6-20) mg/dL Creatinine 1.1 1.3 (0.6-1.3) mg/dL Estimated GFR (MDRD) 65 L 54 L (>89) Glucose 93 141 H (74-104) mg/dL Calcium 7.6 L 8.2 L (8.5-10.3) mg/dL Total Bilirubin 1.1 H (0.2-1.0) mg/dL AST 15 (10-42) IU/L ALT 11 (10-60) IU/L Alkaline Phosphatase 87 (42-121) IU/L Total Protein 5.6 L (6.4-8.9) g/dL Albumin 3.3 (3.2-5.5) g/dL Globulin 2.3 (2.1-4.2) g/dL Albumin/Globulin Ratio 1.4 (1.0-2.2) Lipase 32 (11-82) U/L Blood Type Antibody Screen Crossmatch IS Only 03/10/24 03/10/24 03/10/24 Range/Units 20:04 20:04 20:04 WBC (4.8-10.8) x10^3/uL RBC (4.70-6.10) 10^6/uL Hgb (14.0-18.0) g/dL Hct (42.0-52.0) % MCV (80.0-94.0) fL MCH (27.0-31.0) pg MCHC (32.0-36.0) g/dL RDW (12.0-15.0) % Plt Count (130-450) 10^3/uL MPV (7.4-11.4) fL Neut # (Auto) Lymph # (Auto) [place] # (Auto) Eos # (Auto) Baso # (Auto) Absolute Nucleated RBC Total Counted Band Neuts % (Manual) (0 - 10) % Abnorm Lymph % (Manual) % Metamyelocytes % ( - 0) % Myelocytes % ( - 0) % Promyelocytes % ( - 0) % Nucleated RBC % Neutrophils # (Manual) (1.5-6.6) 10^3/uL Lymphocytes # (Manual) (1.5-3.5) 10^3/uL Monocytes # (Manual) (0.0-1.0) 10^3/uL Eosinophils # (Manual) (0-0.7) 10^3/uL Basophils # (Manual) (0-0.1) 10^3/uL Nucleated RBCs % Differential Comment WBC Morphology TOXIC GRANULATION (NORMAL) Platelet Estimate DECREASED (<130,000) (NORMAL) Platelet Morphology 1+ LARGE PLATELETS (NORMAL) RBC Morph Micro Appear 2+ MICROCYTOSIS 1+ HYPOCHROMASIA 2+ ANISOCYTOSIS (NORMAL) Sodium (135-145) mmol/L Potassium (3.5-4.5) mmol/L Chloride (101-111) mmol/L Carbon Dioxide (21-32) mmol/L Anion Gap (6-13) BUN (6-20) mg/dL Creatinine (0.6-1.3) mg/dL Estimated GFR (MDRD) (>89) Glucose (74-104) mg/dL Calcium (8.5-10.3) mg/dL Total Bilirubin (0.2-1.0) mg/dL AST (10-42) IU/L ALT (10-60) IU/L Alkaline Phosphatase (42-121) IU/L Total Protein (6.4-8.9) g/dL Albumin (3.2-5.5) g/dL Globulin (2.1-4.2) g/dL Albumin/Globulin Ratio (1.0-2.2) Lipase (11-82) U/L Blood Type Antibody Screen Crossmatch IS Only 03/10/24 03/09/24 Range/Units 20:04 13:02 WBC 22.2 H (4.8-10.8) x10^3/uL RBC 2.20 L (4.70-6.10) 10^6/uL Hgb 6.6 L* (14.0-18.0) g/dL Hct 21.1 L (42.0-52.0) % MCV 95.9 H (80.0-94.0) fL MCH 30.0 (27.0-31.0) pg MCHC 31.3 L (32.0-36.0) g/dL RDW 19.9 H (12.0-15.0) % Plt Count 73 L (130-450) 10^3/uL MPV 12.5 H (7.4-11.4) fL Neut # (Auto) Not Reportable Lymph # (Auto) Not Reportable [place] # (Auto) Not Reportable Eos # (Auto) Not Reportable Baso # (Auto) Not Reportable Absolute Nucleated RBC Not Reportable Total Counted 100 Band Neuts % (Manual) 3 (0 - 10) % Abnorm Lymph % (Manual) 2 % Metamyelocytes % 2 H ( - 0) % Myelocytes % 4 H ( - 0) % Promyelocytes % ( - 0) % Nucleated RBC % Not Reportable Neutrophils # (Manual) 15.8 H (1.5-6.6) 10^3/uL Lymphocytes # (Manual) 2.4 (1.5-3.5) 10^3/uL Monocytes # (Manual) 2.2 H (0.0-1.0) 10^3/uL Eosinophils # (Manual) 0.4 (0-0.7) 10^3/uL Basophils # (Manual) 0.0 (0-0.1) 10^3/uL Nucleated RBCs 2 % Differential Comment MANUAL DIFFERENTIAL WBC Morphology 1+ HYPERSEG NEUT (NORMAL) Platelet Estimate (NORMAL) Platelet Morphology (NORMAL) RBC Morph Micro Appear (NORMAL) Sodium (135-145) mmol/L Potassium (3.5-4.5) mmol/L Chloride (101-111) mmol/L Carbon Dioxide (21-32) mmol/L Anion Gap (6-13) BUN (6-20) mg/dL Creatinine (0.6-1.3) mg/dL Estimated GFR (MDRD) (>89) Glucose (74-104) mg/dL Calcium (8.5-10.3) mg/dL Total Bilirubin (0.2-1.0) mg/dL AST (10-42) IU/L ALT (10-60) IU/L Alkaline Phosphatase (42-121) IU/L Total Protein (6.4-8.9) g/dL Albumin (3.2-5.5) g/dL Globulin (2.1-4.2) g/dL Albumin/Globulin Ratio (1.0-2.2) Lipase (11-82) U/L Blood Type O POSITIVE Antibody Screen NEGATIVE Crossmatch IS Only See Detail Assessment/Plan Problem List (1) Anemia: Impression: Transfuse 1 unit PRBC for hemoglobin 6.2 this morning Recheck H&H after transfusion Qualifiers: Anemia type: unspecified type Qualified Code(s): D64.9 - Anemia, unspecified (2) Hematuria: Impression: Urology consulted by ER provider Plan for cystoscopy this afternoon Likely hold overnight after procedure Qualifiers: Hematuria type: gross Qualified Code(s): R31.0 - Gross hematuria
--- NOTE | 2024-03-11 14:33 | ANESTHESIA PROCEDURE NOTE ---
Pre-Anesthesia VS, & Labs <Msileyfrancine Jones CRNA - Last Filed: 03/12/24 13:45> Diagnosis Surgical Diagnosis:: anemia Procedure Procedure: cystoscopy, with clot evacuation Vitals Vital Signs: Temp Pulse Resp BP Pulse Ox O2 Flow Rate 36.6 C 82 20 109/59 L 98 0 03/12/24 07:45 03/12/24 07:45 03/12/24 07:45 03/12/24 07:45 03/12/24 07:45 03/11/24 13:40 NPO NPO: >8 hours Lab Results Current Lab Results: Laboratory Tests 03/12/24 05:53: RBC Morph Micro Appear 1+ OVALOCYTES, Sodium 139, Potassium 3.4 L, Chloride 109, Carbon Dioxide 25, Anion Gap 5.0 L, BUN 19, Creatinine 1.0, E stimated GFR (MDRD) 72 L, Glucose 91, Calcium 7.6 L 03/12/24 05:53: RBC Morph Micro Appear 1+ POLYCHROMASIA 03/12/24 05:53: RBC Morph Micro Appear 1+ HYPOCHROMASIA 03/12/24 05:53: WBC 15.4 H, RBC 2.55 L, Hgb 7.5 L, Hct 24.2 L, MCV 94.9 H, MCH 29.4, MCHC 31.0 L, RDW 20.0 H, Plt Count 40 L, Neut # (Auto) Not Reportable, Lymph # (Auto) Not Reportable, [place] # (Auto) Not Reportable, Eos # (Auto) Not Reportable, Baso # (Auto) Not Reportable, Absolute Nucleated RBC Not Reportable, Total Counted 100, Band Neuts % (Manual) 3, Abnorm Lymph % (Manual) 5, M etamyelocytes % 4 H, Myelocytes % 11 H, Promyelocytes % 1 H, Nucleated RBC % Not Reportable, Neutrophils # (Manual) 8.2 H, Lymphocytes # (Manual) 3.5, Monocytes # (Manual) 1.2 H, Eosinophils # (Manual) 0.0, Basophils # (Manual) 0.0, Nucleated RBCs 2, Differential Comment MANUAL DIFFERENTIAL, Platelet Estimate DECREASED (<130,000), Platelet Morphology NORMAL APPEARANCE, RBC Morph Micro Appear 1+ ANISOCYTOSIS 03/11/24 05:33: RBC Morph Micro Appear 1+ POLYCHROMASIA, Sodium 139, Potassium 3.4 L, Chloride 108, Carbon Dioxide 26, Anion Gap 5.0 L, BUN 20, Creatinine 1.1, Estimated GFR (MDRD) 65 L, Glucose 93, Calcium 7.6 L 03/11/24 05:33: WBC 16.5 H, RBC 2.09 L, Hgb 6.2 L*, Hct 19.7 L*, MCV 94.3 H, MCH 29.7, MCHC 31.5 L, RDW 19.1 H, Plt Count 47 L, MPV 13.7 H, Neut # (Auto) Not Reportable, Lymph # (Auto) Not Reportable, [place] # (Auto) Not Reportable, Eos # (Auto) Not Reportable, Baso # (Auto) Not Reportable, Absolute Nucleated RBC Not Reportable, Total Counted 100, Band Neuts % (Manual) 4, Abnorm Lymph % (Manual) 3, Metamyelocytes % 2 H, Myelocytes % 2 H, Promyelocytes % 2 H, Nucleated RBC % Not Reportable, Neutrophils # (Manual) 10.7 H, Lymphocytes # (Manual) 2.3, M onocytes # (Manual) 2.3 H, Eosinophils # (Manual) 0.0, Basophils # (Manual) 0.2 H, Nucleated RBCs 4, Differential Comment MANUAL DIFFERENTIAL, Platelet Estimate DECREASED (<130,000), Platelet Morphology NORMAL APPEARANCE, RBC Morph Micro Appear 1+ HYPOCHROMASIA 03/10/24 20:04: RBC Morph Micro Appear 1+ POLYCHROMASIA, Sodium 139, Potassium 3.5, Chloride 106, Carbon Dioxide 27, Anion Gap 6.0, BUN 21 H, Creatinine 1.3, E stimated GFR (MDRD) 54 L, Glucose 141 H, Calcium 8.2 L, Total Bilirubin 1.1 H, AST 15, ALT 11, Alkaline Phosphatase 87, Total Protein 5.6 L, Albumin 3.3, Globulin 2.3, Albumin/Globulin Ratio 1.4, Lipase 32 03/10/24 20:04: RBC Morph Micro Appear 2+ MICROCYTOSIS 03/10/24 20:04: RBC Morph Micro Appear 1+ HYPOCHROMASIA 03/10/24 20:04: WBC Morphology TOXIC GRANULATION, Platelet Estimate DECREASED (<130,000), Platelet Morphology 1+ LARGE PLATELETS, RBC Morph Micro Appear 2+ ANISOCYTOSIS 03/10/24 20:04: WBC 22.2 H, RBC 2.20 L, Hgb 6.6 L*, Hct 21.1 L, MCV 95.9 H, MCH 30.0, MCHC 31.3 L, RDW 19.9 H, Plt Count 73 L, MPV 12.5 H, Neut # (Auto) Not Reportable, Lymph # (Auto) Not Reportable, [place] # (Auto) Not Reportable, Eos # (Auto) Not Reportable, Baso # (Auto) Not Reportable, Absolute Nucleated RBC Not Reportable, Total Counted 100, Band Neuts % (Manual) 3, Abnorm Lymph % (Manual) 2, Metamyelocytes % 2 H, Myelocytes % 4 H, Nucleated RBC % Not Reportable, N eutrophils # (Manual) 15.8 H, Lymphocytes # (Manual) 2.4, Monocytes # (Manual) 2.2 H, Eosinophils # (Manual) 0.4, Basophils # (Manual) 0.0, Nucleated RBCs 2, Differential Comment MANUAL DIFFERENTIAL, WBC Morphology 1+ HYPERSEG NEUT 03/09/24 13:02: Blood Type O POSITIVE, Antibody Screen NEGATIVE, Crossmatch IS Only See Detail 03/12/24 05:53 03/12/24 05:53 <Tanika Pitts, HARDENER HELPER - Last Filed: 03/11/24 16:30> Vitals Vital Signs: Temp Pulse Resp BP Pulse Ox O2 Flow Rate 36.6 C 82 20 109/59 L 98 0 03/12/24 07:45 03/12/24 07:45 03/12/24 07:45 03/12/24 07:45 03/12/24 07:45 03/11/24 13:40 Lab Results Current Lab Results: Laboratory Tests 03/12/24 05:53: RBC Morph Micro Appear 1+ OVALOCYTES, Sodium 139, Potassium 3.4 L, Chloride 109, Carbon Dioxide 25, Anion Gap 5.0 L, BUN 19, Creatinine 1.0, E stimated GFR (MDRD) 72 L, Glucose 91, Calcium 7.6 L 03/12/24 05:53: RBC Morph Micro Appear 1+ POLYCHROMASIA 03/12/24 05:53: RBC Morph Micro Appear 1+ HYPOCHROMASIA 03/12/24 05:53: WBC 15.4 H, RBC 2.55 L, Hgb 7.5 L, Hct 24.2 L, MCV 94.9 H, MCH 29.4, MCHC 31.0 L, RDW 20.0 H, Plt Count 40 L, Neut # (Auto) Not Reportable, Lymph # (Auto) Not Reportable, [place] # (Auto) Not Reportable, Eos # (Auto) Not Reportable, Baso # (Auto) Not Reportable, Absolute Nucleated RBC Not Reportable, Total Counted 100, Band Neuts % (Manual) 3, Abnorm Lymph % (Manual) 5, M etamyelocytes % 4 H, Myelocytes % 11 H, Promyelocytes % 1 H, Nucleated RBC % Not Reportable, Neutrophils # (Manual) 8.2 H, Lymphocytes # (Manual) 3.5, Monocytes # (Manual) 1.2 H, Eosinophils # (Manual) 0.0, Basophils # (Manual) 0.0, Nucleated RBCs 2, Differential Comment MANUAL DIFFERENTIAL, Platelet Estimate DECREASED (<130,000), Platelet Morphology NORMAL APPEARANCE, RBC Morph Micro Appear 1+ ANISOCYTOSIS 03/11/24 05:33: RBC Morph Micro Appear 1+ POLYCHROMASIA, Sodium 139, Potassium 3.4 L, Chloride 108, Carbon Dioxide 26, Anion Gap 5.0 L, BUN 20, Creatinine 1.1, Estimated GFR (MDRD) 65 L, Glucose 93, Calcium 7.6 L 03/11/24 05:33: WBC 16.5 H, RBC 2.09 L, Hgb 6.2 L*, Hct 19.7 L*, MCV 94.3 H, MCH 29.7, MCHC 31.5 L, RDW 19.1 H, Plt Count 47 L, MPV 13.7 H, Neut # (Auto) Not Reportable, Lymph # (Auto) Not Reportable, [place] # (Auto) Not Reportable, Eos # (Auto) Not Reportable, Baso # (Auto) Not Reportable, Absolute Nucleated RBC Not Reportable, Total Counted 100, Band Neuts % (Manual) 4, Abnorm Lymph % (Manual) 3, Metamyelocytes % 2 H, Myelocytes % 2 H, Promyelocytes % 2 H, Nucleated RBC % Not Reportable, Neutrophils # (Manual) 10.7 H, Lymphocytes # (Manual) 2.3, M onocytes # (Manual) 2.3 H, Eosinophils # (Manual) 0.0, Basophils # (Manual) 0.2 H, Nucleated RBCs 4, Differential Comment MANUAL DIFFERENTIAL, Platelet Estimate DECREASED (<130,000), Platelet Morphology NORMAL APPEARANCE, RBC Morph Micro Appear 1+ HYPOCHROMASIA 03/10/24 20:04: RBC Morph Micro Appear 1+ POLYCHROMASIA, Sodium 139, Potassium 3.5, Chloride 106, Carbon Dioxide 27, Anion Gap 6.0, BUN 21 H, Creatinine 1.3, E stimated GFR (MDRD) 54 L, Glucose 141 H, Calcium 8.2 L, Total Bilirubin 1.1 H, AST 15, ALT 11, Alkaline Phosphatase 87, Total Protein 5.6 L, Albumin 3.3, Globulin 2.3, Albumin/Globulin Ratio 1.4, Lipase 32 03/10/24 20:04: RBC Morph Micro Appear 2+ MICROCYTOSIS 03/10/24 20:04: RBC Morph Micro Appear 1+ HYPOCHROMASIA 03/10/24 20:04: WBC Morphology TOXIC GRANULATION, Platelet Estimate DECREASED (<130,000), Platelet Morphology 1+ LARGE PLATELETS, RBC Morph Micro Appear 2+ ANISOCYTOSIS 03/10/24 20:04: WBC 22.2 H, RBC 2.20 L, Hgb 6.6 L*, Hct 21.1 L, MCV 95.9 H, MCH 30.0, MCHC 31.3 L, RDW 19.9 H, Plt Count 73 L, MPV 12.5 H, Neut # (Auto) Not Reportable, Lymph # (Auto) Not Reportable, [place] # (Auto) Not Reportable, Eos # (Auto) Not Reportable, Baso # (Auto) Not Reportable, Absolute Nucleated RBC Not Reportable, Total Counted 100, Band Neuts % (Manual) 3, Abnorm Lymph % (Manual) 2, Metamyelocytes % 2 H, Myelocytes % 4 H, Nucleated RBC % Not Reportable, N eutrophils # (Manual) 15.8 H, Lymphocytes # (Manual) 2.4, Monocytes # (Manual) 2.2 H, Eosinophils # (Manual) 0.4, Basophils # (Manual) 0.0, Nucleated RBCs 2, Differential Comment MANUAL DIFFERENTIAL, WBC Morphology 1+ HYPERSEG NEUT 03/09/24 13:02: Blood Type O POSITIVE, Antibody Screen NEGATIVE, Crossmatch IS Only See Detail Meds/Allgy <Smiley Jones CRNA - Last Filed: 03/12/24 13:45> Home Medications Ambulatory Orders Medication Instructions Recorded Confirmed Bacillus coagulans 1 cap PO DAILY 01/22/24 03/11/24 allopurinol 300 mg tablet 300 mg PO DAILY 03/01/24 03/11/24 ergocalciferol (vitamin D2) 1,250 1,250 mcg PO .Fridays03/01/24 03/11/24 mcg (50,000 unit) capsule (Vitamin D2) folic acid 1 mg tablet 1 mg PO DAILY 03/01/24 03/11/24 hydroxyurea 500 mg capsule 500 mg PO DAILY 03/01/24 03/11/24 Allergies Allergies Allergy/AdvReac Type Severity Reaction Status Date / Time Sulfa (Sulfonamide Allergy Severe Unknown Verified 03/10/24 19:15 Antibiotics) PFSH <Smiley Jones CRNA - Last Filed: 03/12/24 13:45> Medical History Medical History History of retinal detachment Surgical History Surgical History Hx of detached retina repair Social History Social History Smoking Status: Former smoker If you are a former smoker, when did you quit? (Date/Year): 1966 Second hand tobacco smoke exposure: No Do you dip or chew tobacco?: No Do you vape?: No Living arrangement: At home Marital Status: Living Condition: With spouse/s.o. 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 Manage hematuria as below Qualifiers: Anemia type: unspecified type Qualified Code(s): D64.9 - Anemia, unspecified (2) Hematuria: Plan: Urology consulted by ER provider Plan for cystoscopy in a.m. N.p.o. after midnight Qualifiers: Hematuria type: gross Qualified Code(s): R31.0 - Gross hematuria Plan Placed in observation Full code is his surrogate decision-maker Plan Anesthesia Type: General Consent for Procedure(s) Verified and Reviewed: Yes Code Status: Attempt Resuscitation ASA Classification ASA classification: 4-Incapacitating disease <Tanika Pitts CRNA - Last Filed: 03/11/24 16:30> Problem List (1) Anemia: (2) Hematuria: ASA Classification Is this case an emergency?: No
[2024-03-11] MEDS ORDERED: LIDOCAINE 2% URO-JET 5 ML SYRINGE UR ONE (14:39)
[2024-03-11] MEDS ORDERED: fentaNYL 100 MCG/2 ML VIAL IVP PRN (16:30)
[2024-03-11] MEDS ORDERED: METOCLOPRAMIDE 10 MG/2 ML VIAL IVP PRN (16:30)
[2024-03-11] MEDS ORDERED: ePHEDrine 50 MG/ML VIAL IVP PRN (16:30)
[2024-03-11] MEDS ORDERED: HYDROmorphone 0.5 MG/0.5 ML SYRINGE IVP PRN (16:30)
[2024-03-11] MEDS ORDERED: ATROPINE ABBOJECT 1 MG/10 ML SYRINGE IVP PRN (16:30)
[2024-03-11] MEDS ORDERED: NALOXONE 0.4 MG/ML VIAL IVP PRN (16:30)
[2024-03-11] MEDS ORDERED: ONDANSETRON 4 MG/2 ML VIAL IVP PRN (16:30)
[2024-03-11] MEDS ORDERED: MORPHINE 2 MG/ML CARPUJECT IVP PRN (16:30)
[2024-03-11] MEDS ORDERED: MIDAZOLAM 2 MG/2 ML VIAL ONE (16:48)
[2024-03-11] MEDS ORDERED: fentaNYL 100 MCG/2 ML VIAL ONE (16:49)
[2024-03-11] MEDS ORDERED: PROPOFOL 200 MG/20 ML VIAL IVP ONE (17:10)
[2024-03-11] MEDS ORDERED: LIDOCAINE-PF 2% 10 ML AMP SUBQ ONE (17:10)
[2024-03-11] MEDS ORDERED: PHENYLEPHRINE HCL 0.5 MG/5 ML AMPULE ONE (17:25)
--- NOTE | 2024-03-11 17:39 | OPERATIVE REPORT ---
Operative Report General Admit Date: 03/11/24 Procedure Data: Operation Date: 03/11/24 16:00 Proposed Procedures p Cystoscopy W/CLOT EVACUATION(Not Applicable) - Khadar Littlejohn MD Actual Procedures p Cystoscopy W/CLOT EVACUATION(Not Applicable) - Khadar Littlejohn MD Anesthesia Type General Case Staff Anesthesia Provider: Tanika Pitts Case Times Procedure Start: 03/11/24 17:07 Procedure End: 03/11/24 17:26 Time out: 03/11/24 17:07 Pre-Op Diagnosis: hematuria Post Op Diagnosis: hematuria Procedure Note Estimated Blood Loss (ml): 10 Indications: hematuria Findings: diffuse bleeding of prostate Complications: none Other Other Information/Narrative: After informed consent was obtained the patient was brought to the OR and laid in the supine position. The patient was anesthetized per anesthesia protocols. His old catheter was removed. He was prepped and draped in the usual sterile fashion in the dorsolithotomy position Formal timeout was performed reconfirming the patient, and procedure. A 26 German resectoscope was advanced per urethra into the urinary bladder. We could see blood clot in his urethra and prostatic fossa. There was a large dark blood clot in the bladder. Using an myinfoQik evacuator we evacuated out his bladder of about 200 cc of old dark clot We then inspected his bladder and saw that there were large trabeculations but no actively bleeding areas. There was significant oozing coming from the prostatic fossa. Using bipolar loop electrocautery we cauterized and coagulated these areas. The urethra was evaluated no actively bleeding areas were seen. A Uro-Jet was placed. A 22 German three-way Gutierrez catheter was placed with 40 cc in the balloon. We then placed this catheter on gentle traction and started him on continuous bladder irrigation. This looked crystal-clear. Using Mastisol and silk tape we made a makeshift StatLock and placed him on gentle traction He was then reversed from anesthesia. He was brought to the PACU without further incident. He will return to the floor. The plan will be to discharge him home tomorrow with a catheter to be removed in 3 weeks in my office
[2024-03-11 18:28] VITALS: TEMP 97.9
[2024-03-11] MEDS: ceFAZolin (2G) 2 GM in SODIUM CHLORIDE 0.9% MINIBAG 100 ML IV ONE (20:08)
[2024-03-11] MEDS: LACTATED RINGERS 1,000 ML IV SCH (20:08)
--- NOTE | 2024-03-11 20:50 | ANESTHESIA POST OP EVALUATION ---
Anesthesia Post Eval Post Anesthesia Eval Vitals: Last Vital Signs Temp 36.6 C 03/11/24 19:57 Pulse 88 03/11/24 19:57 Resp 16 03/11/24 19:57 BP 109/55 L 03/11/24 19:57 Pulse Ox 92 03/11/24 19:57 O2 Flow Rate 0 03/11/24 13:40 CV Function Including HR & BP: Stable Pain Control: Satisfactory Nausea & Vomiting: Negative Mental Status: Baseline Respiratory Status: Airway Patent Hydration Status: Satisfactory Anesthesia Complications: None
[2024-03-12 00:16] VITALS: O2SAT 98
[2024-03-12 06:03] LABS: BASOPHILS % (AUTO) 1.8 %; EOSINOPHILS % (AUTO) 0.8 %; HCT - HEMATOCRIT 24.2 % (42.0-52.0); HGB - HEMOGLOBIN 7.5 g/dL (14.0-18.0); MEAN CORPUSCULAR HEMOGLOBIN 29.4 pg (27.0-31.0); MEAN CORPUSCULAR VOLUME 94.9 fL (80.0-94.0); MONOCYTES % (AUTO) 31.1 %; NEUTROPHILS % (AUTO) 40.7 %; PLT - PLATELET COUNT 40 10^3/uL (130-450); RED BLOOD COUNT 2.55 10^6/uL (4.70-6.10); WHITE BLOOD COUNT 15.4 x10^3/uL (4.8-10.8)
[2024-03-12 06:14] LABS: CALCIUM 7.6 mg/dL (8.5-10.3); POTASSIUM 3.4 mmol/L (3.5-4.5)
[2024-03-12 06:29] LABS: ABNORMAL LYMPHS % (MANUAL) 5 %; BAND NEUTROPHILS % (MANUAL) 3 %; LYMPHOCYTES # (MANUAL) 3.5 10^3/uL (1.5-3.5); LYMPHOCYTES % (MANUAL) 18 %; METAMYELOCYTES % (MANUAL) 4 %; MONOCYTES # (MANUAL) 1.2 10^3/uL (0.0-1.0); MYELOCYTES % (MANUAL) 11 %; NEUTROPHILS # (MANUAL) 8.2 10^3/uL (1.5-6.6); NUCLEATED RBC (MANUAL) 2 %; PROMYELOCYTES % (MANUAL) 1 %
[2024-03-12 06:30] LABS: PLATELET ESTIMATE, MANUAL DECREASED (<130,000) (NORMAL); PLATELET MORPHOLOGY NORMAL APPEARANCE (NORMAL)
[2024-03-12 06:31] LABS: DIFFERENTIAL COMMENT MANUAL DIFFERENTIAL
--- NOTE | 2024-03-12 07:30 | PROVIDER PROGRESS NOTE ---
Subjective Prog Note Date Prog Note Date: 03/12/24 Prog Note Time: 07:28 Subjective Pt reports feeling: Improved Subjective: No issues overnight. Went to OR yesterday for clot evacuation. Doing well overnight on CBI Current Medications Current Medications Current Medications: Current Medications Generic Name Dose Route Start Last Admin Trade Name Freq PRN Reason Stop Dose Admin Acetaminophen 650 mg 03/10/24 22:14 Acetaminophen 325 Mg Tablet PO Q4HR PRN Pain 1 to 4, or Fever Ondansetron HCl 4 mg 03/10/24 22:14 Ondansetron Odt 4 Mg Tablet TL Q6HR PRN Nausea / Vomiting Ondansetron HCl 4 mg 03/10/24 22:14 Ondansetron 4 Mg/2 Ml Vial IVP Q6HR PRN Nausea / Vomiting Sodium Chloride 10 ml 03/10/24 22:14 Sodium Chloride Flush 0.9% 10 Ml Syringe IVP PRN PRN NEEDED PER PROVIDER ORDERS Sodium Chloride 10 ml 03/11/24 01:00 03/12/24 01:54 Sodium Chloride Flush 0.9% 10 Ml Syringe IVP 10 ml 0100,0900,1700 [facility] Administration Objective Vital Signs/Intake & Output Reviewed Vital Signs: Yes Vital Signs: Vital Signs x48h Temp Pulse Resp BP Pulse Ox 03/12/24 00:15 36.6 C 89 18 105/58 L 98 Intake & Output: Intake & Output 03/09/24 03/10/24 03/11/24 03/12/24 23:59 23:59 23:59 23:59 Intake Total 1999 0 / 0 2960 / 2960 1999 Output Total 4900 / 4900 4300 / 4300 Balance 1999 0 / 0 -1940 / -1940 -2300 / -2300 Weight (kg) 76.657 kg Objective General Appearance: positive No acute distress (lying in bed, CBI with clear effluent on slow drip cbi. Hg improved from 6.2 to 7.5 after pRBC) Lab Results 03/12/24 05:53 03/12/24 05:53 Other Labs: Lab Results x24hrs 03/12/24 03/12/24 03/12/24 Range/Units 05:53 05:53 05:53 WBC (4.8-10.8) x10^3/uL RBC (4.70-6.10) 10^6/uL Hgb (14.0-18.0) g/dL Hct (42.0-52.0) % MCV (80.0-94.0) fL MCH (27.0-31.0) pg MCHC (32.0-36.0) g/dL RDW (12.0-15.0) % Plt Count (130-450) 10^3/uL Neut # (Auto) Lymph # (Auto) [place] # (Auto) Eos # (Auto) Baso # (Auto) Absolute Nucleated RBC Total Counted Band Neuts % (Manual) (0 - 10) % Abnorm Lymph % (Manual) % Metamyelocytes % ( - 0) % Myelocytes % ( - 0) % Promyelocytes % ( - 0) % Nucleated RBC % Neutrophils # (Manual) (1.5-6.6) 10^3/uL Lymphocytes # (Manual) (1.5-3.5) 10^3/uL Monocytes # (Manual) (0.0-1.0) 10^3/uL Eosinophils # (Manual) (0-0.7) 10^3/uL Basophils # (Manual) (0-0.1) 10^3/uL Nucleated RBCs % Differential Comment Platelet Estimate (NORMAL) Platelet Morphology (NORMAL) RBC Morph Micro Appear 1+ OVALOCYTES 1+ POLYCHROMASIA 1+ HYPOCHROMASIA (NORMAL) Sodium 139 (135-145) mmol/L Potassium 3.4 L (3.5-4.5) mmol/L Chloride 109 (101-111) mmol/L Carbon Dioxide 25 (21-32) mmol/L Anion Gap 5.0 L (6-13) BUN 19 (6-20) mg/dL Creatinine 1.0 (0.6-1.3) mg/dL Estimated GFR (MDRD) 72 L (>89) Glucose 91 (74-104) mg/dL Calcium 7.6 L (8.5-10.3) mg/dL Blood Type Antibody Screen Crossmatch IS Only 03/12/24 03/09/24 Range/Units 05:53 13:02 WBC 15.4 H (4.8-10.8) x10^3/uL RBC 2.55 L (4.70-6.10) 10^6/uL Hgb 7.5 L (14.0-18.0) g/dL Hct 24.2 L (42.0-52.0) % MCV 94.9 H (80.0-94.0) fL MCH 29.4 (27.0-31.0) pg MCHC 31.0 L (32.0-36.0) g/dL RDW 20.0 H (12.0-15.0) % Plt Count 40 L (130-450) 10^3/uL Neut # (Auto) Not Reportable Lymph # (Auto) Not Reportable [place] # (Auto) Not Reportable Eos # (Auto) Not Reportable Baso # (Auto) Not Reportable Absolute Nucleated RBC Not Reportable Total Counted 100 Band Neuts % (Manual) 3 (0 - 10) % Abnorm Lymph % (Manual) 5 % Metamyelocytes % 4 H ( - 0) % Myelocytes % 11 H ( - 0) % Promyelocytes % 1 H ( - 0) % Nucleated RBC % Not Reportable Neutrophils # (Manual) 8.2 H (1.5-6.6) 10^3/uL Lymphocytes # (Manual) 3.5 (1.5-3.5) 10^3/uL Monocytes # (Manual) 1.2 H (0.0-1.0) 10^3/uL Eosinophils # (Manual) 0.0 (0-0.7) 10^3/uL Basophils # (Manual) 0.0 (0-0.1) 10^3/uL Nucleated RBCs 2 % Differential Comment MANUAL DIFFERENTIAL Platelet Estimate DECREASED (<130,000) (NORMAL) Platelet Morphology NORMAL APPEARANCE (NORMAL) RBC Morph Micro Appear 1+ ANISOCYTOSIS (NORMAL) Sodium (135-145) mmol/L Potassium (3.5-4.5) mmol/L Chloride (101-111) mmol/L Carbon Dioxide (21-32) mmol/L Anion Gap (6-13) BUN (6-20) mg/dL Creatinine (0.6-1.3) mg/dL Estimated GFR (MDRD) (>89) Glucose (74-104) mg/dL Calcium (8.5-10.3) mg/dL Blood Type O POSITIVE Antibody Screen NEGATIVE Crossmatch IS Only See Detail Assessment/Plan Problem List (1) Hematuria: Impression: Much improved hematuria after clot evacuation and fulguration -ok for discharge with catheter in place from perspective -please ensure excellent nursing teaching of catheter care and leg bag/overnight bag care -followup 04/01 at 11am in my office for catheter removal -call with questions Qualifiers: Hematuria type: gross Qualified Code(s): R31.0 - Gross hematuria
[2024-03-12 07:56] VITALS: BP 109/59
--- NOTE | 2024-03-12 10:03 | Discharge Summary ---
Discharge Summary Admit Date: 03/10/24 Discharge Date: 03/12/24 Discharging Provider: Lionel Sage Primary Care Provider: Nadya Severino Code Status: Attempt Resuscitation DIAGNOSES Admission Diagnoses: Acute blood loss anemia Hematuria Discharge Diagnoses with Status of Each Condition: Acute blood loss anemiaresolved Hematuriaresolved HPI History of Present Illness: 78-year-old male with PMH significant for atonic bladder, for which she sees Dr. Littlejohn. 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 He was admitted here for hematuria, and discharged home with Gutierrez catheter. He was given instructions on how to remove this catheter, but when it was time he only partially deflated the balloon and the Gutierrez catheter and removed This catheter with significant amount of air still on it. He started bleeding after this happen, and went to the emergency department yesterday. He had a three-way catheter placed and CBI was started. He followed up with Dr. Littlejohn, and it had cleared up by that time. It started bleeding again today, so he presents to the ER. Dr. Littlejohn was contacted by the ER provider, and he plans to perform cystoscopy in a.m. and asked hospitalist team to admit HOSPITAL COURSE Hospital Course: He was placed in the hospital, received blood transfusions to keep his hemoglobin above 7. He underwent cystoscopy on 03/11/2024. He was cleared by urology for discharge today, with follow-up appointment scheduled. He will discharge with his Gutierrez catheter, and it will be removed at urology appointment ALLERGIES Allergies Allergy/AdvReac Type Severity Reaction Status Date / Time Sulfa (Sulfonamide Allergy Severe Unknown Verified 03/10/24 19:15 Antibiotics) MEDICATIONS Ambulatory Orders Medication Instructions Recorded Confirmed Bacillus coagulans 1 cap PO DAILY 01/22/24 03/11/24 allopurinol 300 mg tablet 300 mg PO DAILY 03/01/24 03/11/24 ergocalciferol (vitamin D2) 1,250 1,250 mcg PO .Fridays03/01/24 03/11/24 mcg (50,000 unit) capsule (Vitamin D2) folic acid 1 mg tablet 1 mg PO DAILY 03/01/24 03/11/24 hydroxyurea 500 mg capsule 500 mg PO DAILY 03/01/24 03/11/24 PHYSICAL EXAM AT DISCHARGE General Appearance: positive No acute distress and Alert Eyes Bilateral: positive Normal inspection and PERRL ENT: positive ENT inspection nml and No signs of dehydration Neck: positive No JVD Respiratory: positive Breath sounds nml Cardiovascular: positive Regular rate & rhythm Peripheral Pulses: positive 2+ Abdomen: positive Non-tender Skin: positive Color nml Extremities: positive Non-tender Neurologic/Psychiatric: positive Oriented x3 LABS 03/12/24 05:53 03/12/24 05:53 FOLLOW UP Follow Up: With PCP within 2 weeks With urology, appointment scheduled TIME SPENT Time Spent in Discharge (Minutes): 35 Discharge Plan Discharge Patient Disposition: Home, Self Care Condition: Stable Prescriptions: Continued hydroxyurea 500 mg capsule 500 mg PO DAILY folic acid 1 mg tablet 1 mg PO DAILY allopurinol 300 mg tablet 300 mg PO DAILY ergocalciferol (vitamin D2) [Vitamin D2] 1,250 mcg (50,000 unit) capsule 1,250 mcg PO .FRIDAYS Patient Comments: Patient says he's taking once weekly on Fridays Bacillus coagulans [Probiotic (B. 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 You had a recent admission for blood in your urine which resolved. You came in because when you attempted to remove your Gutierrez catheter, the balloon was not completely deflated which caused more trauma. We held you in the hospital and you underwent cystoscopy with Dr. Littlejohn on 03/11/2024. He found some old blood, but otherwise clear. You are cleared today to go home. Please keep the Gutierrez catheter inserted, and this will be removed at your outpatient follow-up with Dr. Littlejohn. No restriction on activity, regular diet. Print Language: Latvian Patient Instructions: Surgery Anesthesia After, Catheter Bag Urinary Empty Clean Stand Alone Forms: PCP List Follow-up Care: hKadar Littlejohn MD [Provider Admit Priv/Credential] - (04/01/24 at 11am for nursing visit for Catheter removal) Nadya Severino ARNP [Primary Care Provider] -
== END 2024-03-12 12:45 | disposition home or self-care (01) | DRG 717 ==
LOC: ED 18:12 → MS2 18:12
PROVIDERS: ADMIT Nurse Practitioner Acute Care; ATTEND Nurse Practitioner Acute Care
DX: Y84.6 Urinary catheterization as the cause of abnormal reaction of the patient, or of later complication, without mention of misadventure at the time of the procedure; R33.9 Retention of urine, unspecified; D69.6 Thrombocytopenia, unspecified; D62 Acute posthemorrhagic anemia; R31.0 Gross hematuria; Z87.891 Personal history of nicotine dependence; N31.2 Flaccid neuropathic bladder, not elsewhere classified; D64.9 Anemia, unspecified; N42.1 Congestion and hemorrhage of prostate; C92.10 Chronic myeloid leukemia, BCR/ABL-positive, not having achieved remission

== ENCOUNTER 2024-03-21 08:51 | Inpatient (IN) ==
--- NOTE | 2024-03-21 09:10 | ED Physician Documentation ---
History of Present Illness Stated complaint Stated Complaint: CATH ISSUE Chief complaint Chief Complaint: General History obtained from History obtained from: Patient and Family History of Present Illness Pain level max: 0 Pain level now: 0 Additonal information Additional information: 78-year-old male history of myelodysplastic syndrome and chronic myelomonocytic leukemia. Has chronic anemia and thrombocytopenia. Has recurrent hematuria has required several blood transfusions. He is receiving hydroxyurea. Has had recurrent bleeding into his catheter today, weakness. He is not on blood thinners. Nothing makes it better or worse. Not having any pain. He underwent cystoscopy with cauterization about [address] Littlejohn. Review of Systems Constitutional Denies: Fever or Chills Cardiovascular Denies: chest pain Respiratory Denies: Cough Meds/Allgy Home Medications Ambulatory Orders Medication Instructions Recorded Confirmed Bacillus coagulans 1 cap PO DAILY 01/22/24 03/11/24 allopurinol 300 mg tablet 300 mg PO DAILY 03/01/24 03/11/24 ergocalciferol (vitamin D2) 1,250 1,250 mcg PO .Fridays03/01/24 03/11/24 mcg (50,000 unit) capsule (Vitamin D2) folic acid 1 mg tablet 1 mg PO DAILY 03/01/24 03/11/24 hydroxyurea 500 mg capsule 500 mg PO DAILY 03/01/24 03/11/24 Allergies Allergies Allergy/AdvReac Type Severity Reaction Status Date / Time Sulfa (Sulfonamide Allergy Severe Unknown Verified 03/21/24 08:57 Antibiotics) [facility] Medical History Medical History History of retinal detachment Surgical History Surgical History Hx of detached retina repair Social History Social History Smoking Status: Former smoker If you are a former smoker, when did you quit? (Date/Year): 1966 Second hand tobacco smoke exposure: No Do you dip or chew tobacco?: No Do you vape?: No Patient requests smoking cessation consult: No Initiate information on smoking cessation: No Living arrangement: At home Marital Status: Living Condition: With spouse/s.o. 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 Service: Yes Dates of Service: [id number] Are you following a diet prescribed by a doctor: No Are you following a special diet: Yes (Golo Diet) POLST Patient has POLST: No POLST Status: Full Code Exam Constitutional normal general appearance and no apparent distress HENMT oral mucous membranes normal Respiratory breath sounds equal bilaterally and normal respiratory effort Cardiovascular normal heart rate noted and regular rhythm noted Gastrointestinal abdomen normal to inspection, abdomen soft to palpation, nontender to palpation and nondistended Genitourinary Gutierrez catheter in place with dark red blood. Extremities No edema Psychiatry mental status grossly normal and oriented x3 Skin skin color normal Results Vitals Vitals: Vital Signs - 24 hr 03/21/24 08:57 03/21/24 10:46 03/21/24 11:48 Temperature 36.4 C L Temperature Source Temporal Artery Scan Pulse Rate 85 84 66 Respiratory Rate 16 17 16 Blood Pressure 102/64 90/59 L 98/58 L O2 Saturation 100 100 98 O2 Source Room air Room air Room air Pain Intensity 0 0 0 03/21/24 13:00 Temperature Temperature Source Pulse Rate 90 Respiratory Rate 18 Blood Pressure 97/58 L O2 Saturation 98 O2 Source Room air Pain Intensity 0 Oxygen O2 Source Room air Labs Labs: Laboratory Tests 03/21/24 03/21/24 03/21/24 09:13 09:13 09:13 WBC 18.3 H RBC 2.33 L Hgb 7.1 L Hct 23.3 L MCV 100.0 H MCH 30.5 MCHC 30.5 L RDW 20.6 H Plt Count 38 L Neut # (Auto) Not Reportable Lymph # (Auto) Not Reportable [place] # (Auto) Not Reportable Eos # (Auto) Not Reportable Baso # (Auto) Not Reportable Absolute Nucleated RBC Not Reportable Total Counted 100 Band Neuts % (Manual) 10 Abnorm Lymph % (Manual) 0 Metamyelocytes % 17 H Myelocytes % 3 H Nucleated RBC % Not Reportable Neutrophils # (Manual) 9.3 H Lymphocytes # (Manual) 1.1 L Monocytes # (Manual) 4.0 H Eosinophils # (Manual) 0.2 Basophils # (Manual) 0.0 Nucleated RBCs 2 Differential Comment MANUAL DIFFERENTIAL Manual Slide Review Indicated WBC Morphology NORMAL APPEARANCE Platelet Estimate DECREASED (<130,000) Platelet Morphology NORMAL APPEARANCE RBC Morph Micro Appear 3+ ANISOCYTOSIS 2+ HYPOCHROMASIA 1+ POLYCHROMASIA PT 18.6 H INR 1.8 H APTT 33.9 H Sodium 138 Potassium 3.4 L Chloride 106 Carbon Dioxide 27 Anion Gap 5.0 L BUN 25 H Creatinine 1.1 Estimated GFR (MDRD) 65 L Glucose 115 H Calcium 7.7 L Total Bilirubin 0.9 AST 13 ALT 9 L Alkaline Phosphatase 77 Total Protein 5.0 L Albumin 3.0 L Globulin 2.0 L Albumin/Globulin Ratio 1.5 Procalcitonin Immunoas 0.21 Blood Type O POSITIVE Antibody Screen NEGATIVE PD Medical Decision Making ED course Complexity details: reviewed results, considered differential and d/w patient ED course: 78-year-old male with continued hematuria. Has thrombocytopenia and chronic anemia, last hemoglobin here was around 7.4. 7.1 today. CBI was started. We do not have urology available here today, therefore the patient was attempted to be transferred to [facility]. I did speak with Dr. Acosta, on-call for urology at [facility] who recommends continued CBI and transfer for further care. Prior to discussing the case with the hospitalist at [facility] the house worker called and said that they cannot do CBI secondary to a fluid shortage. At that point I did contact urology here, Dr. Littlejohn who is going to be back early from his vacation. He we will plan on coming to see the patient. Recommends hospitalist admission. Discussed the case with the hospitalist who accepts. This document was made in part using voice recognition software. While efforts are made to proofread this document, sound alike and grammatical errors may occur. Discharge Plan Discharge Patient Disposition: [facility] DC/Xfer Condition: Stable Clinical Impression: Thrombocytopenia, Anemia, CML (chronic myelocytic leukemia), MDP (myeloproliferative disorder) Hematuria Qualifiers: Hematuria type: gross Qualified Code(s): R31.0 - Gross hematuria Interventions: ED Admission Assessment Last Done: 03/21/24 14:35
[2024-03-21 09:27] LABS: BASOPHILS % (AUTO) 1.4 %; EOSINOPHILS % (AUTO) 0.3 %; HCT - HEMATOCRIT 23.3 % (42.0-52.0); HGB - HEMOGLOBIN 7.1 g/dL (14.0-18.0); LYMPHOCYTES % (AUTO) 6.5 %; MEAN CORPUSCULAR HEMOGLOBIN 30.5 pg (27.0-31.0); MEAN CORPUSCULAR HGB CONC 30.5 g/dL (32.0-36.0); MONOCYTES % (AUTO) 28.4 %; NEUTROPHILS % (AUTO) 38.9 %; PLT - PLATELET COUNT 38 10^3/uL (130-450); RED BLOOD COUNT 2.33 10^6/uL (4.70-6.10); RED CELL DISTRIBUTION WIDTH 20.6 % (12.0-15.0); WHITE BLOOD COUNT 18.3 x10^3/uL (4.8-10.8)
[2024-03-21 09:28] LABS: SLIDE REVIEW? Indicated
[2024-03-21 09:29] LABS: ABNORMAL LYMPHS % (MANUAL) 0 %
[2024-03-21 09:30] LABS: INR 1.8 (0.8-1.2); PT - PROTHROMBIN TIME 18.6 secs (9.9-12.6)
[2024-03-21 09:35] LABS: ALBUMIN/GLOBULIN RATIO 1.5 (1.0-2.2); BILIRUBIN,TOTAL 0.9 mg/dL (0.2-1.0); CALCIUM 7.7 mg/dL (8.5-10.3); CREATININE 1.1 mg/dL (0.6-1.3); POTASSIUM 3.4 mmol/L (3.5-4.5)
[2024-03-21 09:37] LABS: PARTIAL THROMBOPLASTIN TIME 33.9 secs (24.9-33.3)
[2024-03-21 09:58] LABS: BAND NEUTROPHILS % (MANUAL) 10 %; EOSINOPHILS # (MANUAL) 0.2 10^3/uL (0-0.7); LYMPHOCYTES # (MANUAL) 1.1 10^3/uL (1.5-3.5); LYMPHOCYTES % (MANUAL) 6 %; METAMYELOCYTES % (MANUAL) 17 %; MYELOCYTES % (MANUAL) 3 %; NEUTROPHILS # (MANUAL) 9.3 10^3/uL (1.5-6.6); NUCLEATED RBC (MANUAL) 2 %
[2024-03-21 10:02] LABS: PLATELET ESTIMATE, MANUAL DECREASED (<130,000) (NORMAL); PLATELET MORPHOLOGY NORMAL APPEARANCE (NORMAL)
[2024-03-21 10:03] LABS: DIFFERENTIAL COMMENT MANUAL DIFFERENTIAL; WBC MORPHOLOGY (MULTIPLE) NORMAL APPEARANCE (NORMAL)
[2024-03-21] MEDS: SODIUM CHLORIDE 0.9% 1,000 ML IV STA (13:26)
--- NOTE | 2024-03-21 13:52 | HISTORY & PHYSICAL EXAMINATION ---
Chief Complaint Chief Complaint Chief Complaint: hematuria History of Present Illness Admitted From Admitted From:: Home History Obtained From Records Reviewed: Past admissions, urology notes History obtained from: Patient History of Present Illness HPI Comment/Other: 78-year-old male who presents to the hospital with hematuria. He has been struggling with this on and off for several weeks. Carries a diagnosis of myelodysplastic syndrome/chronic myelo monocytic leukemia and is followed by Dr. Sandoval. He is on hydroxyurea at home. Was admitted to our facility from 01 March to 05 March for hematuria. Was taken to the OR by Dr. Littlejohn for cystoscopy with clot evacuation. 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 Shelly presented to the emergency department after trying to remove his own catheter with urethral bleeding. Was then taken back to the operating room for cystoscopy with clot evacuation at that time, there was blood clot in the urethra and prostatic fossa. Once again a three-way 22 Sami catheter was placed and patient underwent CBI. He was discharged to home with plans for urology follow-up on 04/01 for catheter removal. Rupa is his surrogate medical decision maker, there is not a POLST on file. Meds/Allgy Home Medications Ambulatory Orders Medication Instructions Recorded Confirmed Bacillus coagulans 1 cap PO DAILY 01/22/24 03/11/24 allopurinol 300 mg tablet 300 mg PO DAILY 03/01/24 03/11/24 ergocalciferol (vitamin D2) 1,250 1,250 mcg PO .Fridays03/01/24 03/11/24 mcg (50,000 unit) capsule (Vitamin D2) folic acid 1 mg tablet 1 mg PO DAILY 03/01/24 03/11/24 hydroxyurea 500 mg capsule 500 mg PO DAILY 03/01/24 03/11/24 Allergies Allergies Allergy/AdvReac Type Severity Reaction Status Date / Time Sulfa (Sulfonamide Allergy Severe Unknown Verified 03/21/24 08:57 Antibiotics) [facility] Medical History Medical History History of retinal detachment Surgical History Surgical History Hx of detached retina repair Social History Social History Smoking Status: Former smoker If you are a former smoker, when did you quit? (Date/Year): 1966 Second hand tobacco smoke exposure: No Do you dip or chew tobacco?: No Do you vape?: No Patient requests smoking cessation consult: No Initiate information on smoking cessation: No Living arrangement: At home Marital Status: Living Condition: With spouse/s.o. Support Person: No Relationship: How many days per week?: 7 Level: Assisted Home Mobility Equipment: Walker Do you feel safe in your home environment?: Yes Suffered physical, verbal, emotional, or financial abuse?: No History of Abuse: No ETOH Use: None Frequency: Occasional Substance Use: denies use Occupation: [employer] Retired: Yes Service: Yes Dates of Service: [id number] Are you following a diet prescribed by a doctor: No Are you following a special diet: Yes (Golo Diet) POLST Patient has POLST: No POLST Status: Full Code Review of Systems Status of ROS: 10 or more systems reviewed and unremarkable except as noted in history and below Constitutional Reports: Fatigue; Denies: Fever, Chills or Malaise Eyes Denies: Change in vision Ears, nose, mouth, and throat Denies: Throat pain Cardiovascular Reports: swelling of feet/ankles; Denies: Irregular heart rate, palpitations or shortness of breath with exertion Respiratory Denies: Shortness of breath or Cough Gastrointestinal Denies: Abdominal pain Genitourinary Reports: other (chronic indwelling rosenbaum); Denies: Painful urination Musculoskeletal Denies: Joint pain Integumentary/Breast Denies: Rash Neurological Denies: Headache or General weakness Psychiatric Denies: Depression Endocrine Reports: Fatigue Hematologic/Lymphatic Reports: Anemia Allergic/Immunologic Reports: Hives Prior Level of Functionality: Lives with his Rupa, of 4.5 years. Independent. Exam Constitutional appears chronically ill, lying in bed on his right side. HENMT normocephalic and head/scalp atraumatic Eyes conjunctivae normal and no scleral icterus Neck/C-Spine visual inspection normal and trachea midline Lymph no lymphadenopathy noted Respiratory breath sounds equal bilaterally, normal respiratory effort and clear to auscultation bilaterally Cardiovascular normal heart rate noted one episode of tachycardia. Gastrointestinal abdomen normal to inspection and abdomen soft to palpation Genitourinary rosenbaum in place, light pink urine/bladder irrigant Conclusion/Plan Problem List (1) Hematuria: Plan: Recurrent hematuria. He will be undergoing CBI. Dr. Littlejohn of urology will be seeing him and will likely take him to the OR for cystoscopy and indicated procedures. he has been dependent on straight cath for years due to atonic bladder. Then with this new dx of MDP, is having problems with hematuria. Discussed w Dr Castillo in the ED and decision was made to admit this pt to OBS status for monitoring of his bleeding, his hemoglobin, CBI as well as consultation with urology for indicated procedures. He will be transfused blood products as indicated. Qualifiers: Hematuria type: gross Qualified Code(s): R31.0 - Gross hematuria (2) MDP (myeloproliferative disorder): Plan: His primary dx is highly complicated by this. He is being treated with hydroxyurea, and his WBC baseline looks to have come down. last saw oncology 3 weeks ago. no change in treatment plan. transfusion parameters were outlined. (3) Anemia: Plan: Hemoglobin at time of admission is 7.1. I have ordered repeat this evening. I will transfuse as indicated. If HGB drops to transfusion level, will also give platelets. Transfusion guidelines per Dr Sandoval: Transfuse leukocyte reduced, CMV negative and irradiated blood products. Transfuse PRBC for Hgb <7 or symptomatic anemia Transfuse platelets for count <10,000 or active bleeding. (4) Thrombocytopenia: Plan: Considered a platelet transfusion, if hgb drops further, will do so. I have ordered repeat CBC for the AM. (5) Chronic indwelling Rosenbaum catheter: Plan: History of chronic atonic bladder with recent issues with hematuria in light of his diagnosis of myeloproliferative disorder. He has had a Rosenbaum in place for some time was due to have it removed in about 10 days in the outpatient environment. Luckily this is a three-way Rosenbaum and therefore we will irrigate and he will be seen by urology in the morning. (6) Leukocytosis: Plan: Leukocytosis of 18.3. This looks to be below his norm. His white blood cell count has been as high as 60 during this illness. I checked a procalcitonin and it is negative therefore I will not start antibiotics. (7) Hypotension: Plan: reviewed all data in the chart. this does not look out of the ordinary for this patient. he is currently asymptomatic. Plan I have spent 76minutes in the care of this patient today. This includes time [id number], review and ordering of diagnostic imaging and laboratory studies and consultation with other providers.. Monitoring the patient's signs symptoms, evaluation of medication effectiveness and patient's response to treatment. Lab Results Lab results reviewed: Yes 03/21/24 18:10 03/21/24 09:13
[2024-03-21] MEDS ORDERED: SODIUM CHLORIDE FLUSH 0.9% 10 ML SYRINGE IVP PRN (14:47)
[2024-03-21] MEDS ORDERED: ONDANSETRON ODT 4 MG TABLET TL PRN (14:47)
[2024-03-21] MEDS: SODIUM CHLORIDE FLUSH 0.9% 10 ML SYRINGE IVP SCH (18:00)
--- NOTE | 2024-03-21 19:47 | PREOP HISTORY & PHYSICAL ---
Surgical History & Physical Chief Complaint/HPI Chief Complaint: hematuria History of Present Illness: 78 yo M well known to me with hx of myeloproliferative disorder who has had multiple issues with gross hematuria secondary to anemia and thrombocytopenia. He normally performs CIC but a chronic catheter has been in place to prevent irritation. He however continues to have hematuria likely secondary to catheter irritation. He presented again to the hospital today. His Hg is roughly stable 7.1. He was admitted to the hospital pending my return. He was started on CBI. Home Meds and Allergies Active Medications Generic Name Dose Route Start Last Admin Trade Name Freq PRN Reason Stop Dose Admin Acetaminophen 650 mg 03/21/24 14:47 03/21/24 20:01 Acetaminophen 325 Mg Tablet PO 650 mg Q4HR PRN Administration Pain 1 to 4, or Fever Heparin Sodium (Porcine) 5,000 unit 03/21/24 21:00 03/21/24 19:56 Heparin 5,000 Unit/Ml Vial SUBQ Not Given BID ILDA Ondansetron HCl 4 mg 03/21/24 14:47 Ondansetron Odt 4 Mg Tablet TL Q6HR PRN Nausea / Vomiting Sodium Chloride 10 ml 03/21/24 14:47 Sodium Chloride Flush 0.9% 10 Ml Syringe IVP PRN PRN NEEDED PER PROVIDER ORDERS Sodium Chloride 10 ml 03/21/24 17:00 03/21/24 18:00 Sodium Chloride Flush 0.9% 10 Ml Syringe IVP Not Given 0100,0900,1700 [facility] Bacillus coagulans 1 cap PO DAILY 01/22/24 allopurinol 300 mg tablet 300 mg PO DAILY 03/01/24 ergocalciferol (vitamin D2) 1,250 mcg (50,000 unit) capsule (Vitamin D2) 1,250 mcg PO .Fridays03/01/24 folic acid 1 mg tablet 1 mg PO DAILY 03/01/24 hydroxyurea 500 mg capsule 500 mg PO DAILY 03/01/24 Allergies Allergy/AdvReac Type Severity Reaction Status Date / Time Sulfa (Sulfonamide Allergy Severe Unknown Verified 03/21/24 08:57 Antibiotics) Vital Signs O2 Saturation: 100 Patient Review Patient Review Pertinent Tests Reviewed [facility] Medical History Medical History History of retinal detachment Surgical History Surgical History Hx of detached retina repair Social History Social History Smoking Status: Former smoker If you are a former smoker, when did you quit? (Date/Year): 1966 Second hand tobacco smoke exposure: No Do you dip or chew tobacco?: No Do you vape?: No Patient requests smoking cessation consult: No Initiate information on smoking cessation: No Living arrangement: At home Marital Status: Living Condition: With spouse/s.o. Support Person: No Relationship: How many days per week?: 7 Level: Assisted Home Mobility Equipment: Walker Do you feel safe in your home environment?: Yes Suffered physical, verbal, emotional, or financial abuse?: No History of Abuse: No ETOH Use: None Frequency: Occasional Substance Use: denies use Occupation: [employer] Retired: Yes Service: Yes Dates of Service: [id number] Are you following a diet prescribed by a doctor: No Are you following a special diet: Yes (Golo Diet) POLST Patient has POLST: No POLST Status: Full Code Exam Exam NAD RRR CTA b/l Assessment & Plan Assessment & Plan Assessment & Plan: We had a long discussion regarding his recurrent hematuria. I suspect his current issue is related to catheter irritation of his prostate and his thrombocytopenia. To this end I do recommend a repeat cystoscopy, clot evacuation, fulguration of bleeding areas but I also recommend a transition to a suprapubic tube. We discussed this in depth. I will plan to have both a suprapubic tube and a catheter in place temporarily. He we will likely be able to remove his penile catheter in the coming days. He will likely need a suprapubic tube for life. We discussed the risk, benefits, alternatives of this. Specific risks of infection, bleeding, injury to adjacent structures, need for additional procedures, failure of therapy, anesthesia risk were discussed. The patient states understanding and consents the above plan. He will be n.p.o. for tomorrow.
[2024-03-21] MEDS: HEPARIN 5,000 UNIT/ML VIAL SUBQ SCH (19:56)
[2024-03-21] MEDS: ACETAMINOPHEN 325 MG TABLET PO PRN (20:01)
[2024-03-22 04:50] LABS: BASOPHILS % (AUTO) 1.6 %; EOSINOPHILS % (AUTO) 0.4 %; HCT - HEMATOCRIT 23.2 % (42.0-52.0); LYMPHOCYTES % (AUTO) 5.8 %; MEAN CORPUSCULAR HEMOGLOBIN 30.4 pg (27.0-31.0); MEAN CORPUSCULAR HGB CONC 30.2 g/dL (32.0-36.0); MEAN CORPUSCULAR VOLUME 100.9 fL (80.0-94.0); MONOCYTES % (AUTO) 25.4 %; PLT - PLATELET COUNT 36 10^3/uL (130-450); RED CELL DISTRIBUTION WIDTH 20.6 % (12.0-15.0); WHITE BLOOD COUNT 19.7 x10^3/uL (4.8-10.8)
[2024-03-22 04:57] LABS: SLIDE REVIEW? Indicated
[2024-03-22 05:05] LABS: CREATININE 1.3 mg/dL (0.6-1.3); POTASSIUM 3.8 mmol/L (3.5-4.5)
[2024-03-22 05:06] LABS: ABNORMAL LYMPHS % (MANUAL) 0 %
[2024-03-22 05:27] LABS: BAND NEUTROPHILS % (MANUAL) 4 %; BASOPHILS # (MANUAL) 0.2 10^3/uL (0-0.1); BASOPHILS % (MANUAL) 1 %; LYMPHOCYTES # (MANUAL) 2.2 10^3/uL (1.5-3.5); LYMPHOCYTES % (MANUAL) 11 %; METAMYELOCYTES % (MANUAL) 8 %; MONOCYTES # (MANUAL) 2.6 10^3/uL (0.0-1.0); MYELOCYTES % (MANUAL) 12 %; NEUTROPHILS # (MANUAL) 10.8 10^3/uL (1.5-6.6)
[2024-03-22 05:30] LABS: PLATELET MORPHOLOGY NORMAL APPEARANCE (NORMAL)
[2024-03-22 05:31] LABS: DIFFERENTIAL COMMENT MANUAL DIFFERENTIAL; PLATELET ESTIMATE, MANUAL DECREASED (<130,000) (NORMAL); SLIDE SENT FOR PATH REVIEW? Indicated; WBC MORPHOLOGY (MULTIPLE) 1+ VACUOLATION (NORMAL)
--- NOTE | 2024-03-22 08:34 | PROVIDER PROGRESS NOTE ---
Subjective General Admit Date: 03/21/24 Other Other Information/Narrative: had some clots around catheter overnight Exam Exam NAD RRR CTA b/l rosenbaum in place with yellow slightly red tinged urine ABX Reporting Has patient been on IV antibiotics over the past 48 hours?: No Impression/Plan Problem List (1) Hematuria: Plan: Continued hematuria. Recommend cystoscopy, clot evacuation, fulguration of bleeding, suprapubic tube. The risk, benefits and alternatives were discussed the patient. Specific risks of infection, bleeding, injury to adjacent structures, need for additional procedures, failure of therapy, pain were discussed. Patient states understanding and consents to the above plan Qualifiers: Hematuria type: gross Qualified Code(s): R31.0 - Gross hematuria (2) MDP (myeloproliferative disorder): (3) Anemia: (4) Thrombocytopenia: (5) Chronic indwelling Rosenbaum catheter: (6) Leukocytosis: (7) Hypotension:
[2024-03-22] MEDS ORDERED: BUPIVACAINE 0.25% PF 10 ML VIAL ONE (08:46)
[2024-03-22] MEDS ORDERED: LIDOCAINE 2% URO-JET 5 ML SYRINGE UR ONE (08:46)
[2024-03-22] MEDS ORDERED: LIDOCAINE 1%-EPI 1:100000 20 ML MDV ONE (08:46)
--- NOTE | 2024-03-22 09:18 | ANESTHESIA PROCEDURE NOTE ---
Pre-Anesthesia VS, & Labs Diagnosis Surgical Diagnosis:: hematuria Procedure Procedure: cysto, fulgaration, supra pubic tube Vitals Vital Signs: Temp Pulse Resp BP Pulse Ox O2 Flow Rate 36.7 C 88 20 110/68 99 0 03/21/24 23:50 03/21/24 23:50 03/21/24 23:50 03/21/24 23:50 03/21/24 23:50 03/21/24 18:57 Height (in): 5 ft 8 in Weight (kg): 77 kg Body Mass Index: 25.8 BMI Classification: Overweight NPO NPO: >8 hours Lab Results Current Lab Results: Laboratory Tests 03/22/24 04:15: RBC Morph Micro Appear 1+ OVALOCYTES, Sodium 138, Potassium 3.8, Chloride 106, Carbon Dioxide 27, Anion Gap 5.0 L, BUN 24 H, Creatinine 1.3, E stimated GFR (MDRD) 54 L, Glucose 92, Calcium 8.0 L, Iron 82, TIBC 167 L, % Saturation 49, Transferrin 119 L 03/22/24 04:15: RBC Morph Micro Appear 1+ POLYCHROMASIA 03/22/24 04:15: RBC Morph Micro Appear 1+ MACROCYTOSIS 03/22/24 04:15: WBC 19.7 H, RBC 2.30 L, Hgb 7.0 L*, Hct 23.2 L, MCV 100.9 H, MCH 30.4, MCHC 30.2 L, RDW 20.6 H, Plt Count 36 L, Neut # (Auto) Not Reportable, Lymph # (Auto) Not Reportable, Mower # (Auto) Not Reportable, Eos # (Auto) Not Reportable, Baso # (Auto) Not Reportable, Absolute Nucleated RBC Not Reportable, Total Counted 100, Band Neuts % (Manual) 4, Abnorm Lymph % (Manual) 0, M etamyelocytes % 8 H, Myelocytes % 12 H, Nucleated RBC % Not Reportable, N eutrophils # (Manual) 10.8 H, Lymphocytes # (Manual) 2.2, Monocytes # (Manual) 2.6 H, Eosinophils # (Manual) 0.0, Basophils # (Manual) 0.2 H, Differential Comment MANUAL DIFFERENTIAL, Manual Slide Review Indicated, WBC Morphology 1+ VACUOLATION, Platelet Estimate DECREASED (<130,000), Platelet Morphology NORMAL APPEARANCE, RBC Morph Micro Appear 1+ ANISOCYTOSIS 03/21/24 18:10: Hgb 7.3 L 03/21/24 09:13: RBC Morph Micro Appear 1+ POLYCHROMASIA, PT 18.6 H, INR 1.8 H, A PTT 33.9 H, Sodium 138, Potassium 3.4 L, Chloride 106, Carbon Dioxide 27, Anion Gap 5.0 L, BUN 25 H, Creatinine 1.1, Estimated GFR (MDRD) 65 L, Glucose 115 H, C alcium 7.7 L, Total Bilirubin 0.9, AST 13, ALT 9 L, Alkaline Phosphatase 77, T otal Protein 5.0 L, Albumin 3.0 L, Globulin 2.0 L, Albumin/Globulin Ratio 1.5, Procalcitonin Immunoas 0.21, Blood Type O POSITIVE, Antibody Screen NEGATIVE, Crossmatch IS Only See Detail 03/21/24 09:13: RBC Morph Micro Appear 2+ HYPOCHROMASIA 03/21/24 09:13: WBC 18.3 H, RBC 2.33 L, Hgb 7.1 L, Hct 23.3 L, MCV 100.0 H, MCH 30.5, MCHC 30.5 L, RDW 20.6 H, Plt Count 38 L, Neut # (Auto) Not Reportable, Lymph # (Auto) Not Reportable, Mower # (Auto) Not Reportable, Eos # (Auto) Not Reportable, Baso # (Auto) Not Reportable, Absolute Nucleated RBC Not Reportable, Total Counted 100, Band Neuts % (Manual) 10, Abnorm Lymph % (Manual) 0, M etamyelocytes % 17 H, Myelocytes % 3 H, Nucleated RBC % Not Reportable, N eutrophils # (Manual) 9.3 H, Lymphocytes # (Manual) 1.1 L, Monocytes # (Manual) 4.0 H, Eosinophils # (Manual) 0.2, Basophils # (Manual) 0.0, Nucleated RBCs 2, Differential Comment MANUAL DIFFERENTIAL, Manual Slide Review Indicated, WBC Morphology NORMAL APPEARANCE, Platelet Estimate DECREASED (<130,000), Platelet Morphology NORMAL APPEARANCE, RBC Morph Micro Appear 3+ ANISOCYTOSIS Lab results reviewed: Yes 03/22/24 04:15 03/22/24 04:15 Other Lab Results: one unit prbcs to be transfused Meds/Allgy Home Medications Ambulatory Orders Medication Instructions Recorded Confirmed Bacillus coagulans 1 cap PO DAILY 01/22/24 03/11/24 allopurinol 300 mg tablet 300 mg PO DAILY 03/01/24 03/11/24 ergocalciferol (vitamin D2) 1,250 1,250 mcg PO .Fridays03/01/24 03/11/24 mcg (50,000 unit) capsule (Vitamin D2) folic acid 1 mg tablet 1 mg PO DAILY 03/01/24 03/11/24 hydroxyurea 500 mg capsule 500 mg PO DAILY 03/01/24 03/11/24 Allergies Allergies Allergy/AdvReac Type Severity Reaction Status Date / Time Sulfa (Sulfonamide Allergy Severe Unknown Verified 03/21/24 08:57 Antibiotics) [facility] Medical History Medical History (Updated 03/22/24 @ 09:17 by Mack Solares CRNA) MDS/MPN (myelodysplastic/myeloproliferative neoplasms) Asthma Obstructive sleep apnea Anemia Bladder cancer Hematuria Bladder atonia History of retinal detachment Surgical History Surgical History Hx of detached retina repair Social History Social History Smoking Status: Former smoker If you are a former smoker, when did you quit? (Date/Year): 1966 Second hand tobacco smoke exposure: No Do you dip or chew tobacco?: No Do you vape?: No Patient requests smoking cessation consult: No Initiate information on smoking cessation: No Living arrangement: At home Marital Status: Living Condition: With spouse/s.o. 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 Recommend cystoscopy, clot evacuation, fulguration of bleeding, suprapubic tube. The risk, benefits and alternatives were discussed the patient. Specific risks of infection, bleeding, injury to adjacent structures, need for additional procedures, failure of therapy, pain were discussed. Patient states understanding and consents to the above plan Qualifiers: Hematuria type: gross Qualified Code(s): R31.0 - Gross hematuria (2) MDP (myeloproliferative disorder): (3) Anemia: Plan Anesthesia Type: General Consent for Procedure(s) Verified and Reviewed: Yes Code Status: Attempt Resuscitation ASA Classification ASA classification: 4-Incapacitating disease Is this case an emergency?: No
[2024-03-22] MEDS ORDERED: MORPHINE 2 MG/ML CARPUJECT IVP PRN (09:20)
[2024-03-22] MEDS ORDERED: ONDANSETRON 4 MG/2 ML VIAL IVP PRN (09:20)
[2024-03-22] MEDS ORDERED: fentaNYL 100 MCG/2 ML VIAL IVP PRN (09:20)
[2024-03-22] MEDS ORDERED: NALOXONE 0.4 MG/ML VIAL IVP PRN (09:20)
[2024-03-22] MEDS ORDERED: HYDROmorphone 0.5 MG/0.5 ML SYRINGE IVP PRN (09:20)
[2024-03-22] MEDS ORDERED: ATROPINE ABBOJECT 1 MG/10 ML SYRINGE IVP PRN (09:20)
[2024-03-22] MEDS ORDERED: METOCLOPRAMIDE 10 MG/2 ML VIAL IVP PRN (09:20)
[2024-03-22] MEDS ORDERED: ePHEDrine 50 MG/ML VIAL IVP PRN (09:20)
[2024-03-22] MEDS ORDERED: PROPOFOL 200 MG/20 ML VIAL IVP ONE (09:25)
[2024-03-22] MEDS ORDERED: LIDOCAINE-PF 2% 10 ML AMP SUBQ ONE (09:25)
[2024-03-22] MEDS ORDERED: fentaNYL 100 MCG/2 ML VIAL ONE ×2 (09:25→10:17)
[2024-03-22] MEDS ORDERED: PHENYLEPHRINE HCL 0.5 MG/5 ML AMPULE ONE (09:59)
[2024-03-22] MEDS ORDERED: SODIUM CHLORIDE FLUSH 0.9% 10 ML SYRINGE IVP PRN (10:04)
[2024-03-22] MEDS ORDERED: ePHEDrine 50 MG/ML VIAL IVP ONE (10:34)
[2024-03-22] MEDS ORDERED: DEXAMETHASONE 4 MG/ML VIAL ONE (10:42)
[2024-03-22] MEDS ORDERED: ONDANSETRON 4 MG/2 ML VIAL ONE (10:42)
--- NOTE | 2024-03-22 10:51 | OPERATIVE REPORT ---
Operative Report General Admit Date: 03/21/24 Procedure Data: Operation Date: 03/22/24 13:30 Proposed Procedures p Cystoscopy FULGURATION OF BLADDER(Not Applicable) - Khadar Littlejohn MD s Suprapubic Catheter Placement(Not Applicable) - Khadar Littlejohn MD Actual Procedures p Cystoscopy, clot evacuation Khadar Littlejohn MD s Suprapubic Catheter Placement - Khadar Littlejohn MD Anesthesia Type General Case Staff Anesthesia Provider: Mack Solares Case Times Procedure Start: 03/22/24 10:11 Time out: 03/22/24 10:11 Pre-Op Diagnosis: hematuria and neurogenic bladder Post Op Diagnosis: same Procedure Note Estimated Blood Loss (ml): 2 Pathology: none Findings: no active bleeding seen, 20cc clot evacuated Complications: none Other Other Information/Narrative: After informed consent was obtained the patient was brought to the OR and laid in the supine position. He was anesthetized per anesthesia protocols. His hold catheter was removed. He was placed in dorsolithotomy position and prepped draped in usual sterile fashion. A formal timeout was performed reconfirming the patient, procedure and laterality. 26 Algerian resectoscope was advanced easily into the urinary bladder. He was noted to have enlarged prostate with about 20 cc of clot in the bladder. There was no actively bleeding areas. We could see old scar in his posterior bladder wall from previous fulguration. Once the clot was evacuated it actually looked quite good. We then made a srinivasa about 2 fingerbreadths cranial from the pubic symphysis. Local was instilled which was half percent Marcaine and 1% lidocaine with epinephrine. Using a 18-gauge spinal needle we pokes directly into the bladder which was visualized with a resectoscope. We then placed sensor wire through this needle into the bladder. A stab incision with 15 blade was made next to this wire. We then used a series of Amplatz dilators to dilate from 8 Algerian over the wire all the way up to 24 Algerian. We then placed a 20 Algerian iqugmiut tip catheter over the wire into the bladder. This was directly visualized. 15 cc was placed in the balloon. There was excellent hemostasis. There was no bleeding seen and so no fulguration was performed. We then placed a 22 Algerian three-way Gutierrez catheter into the bladder via the urethra after placing a Uro- Jet. He suprapubic tube was sutured in place using two 2-0 nylon sutures. These were all placed to gravity drainage. Plan irrigation was placed through the three-way port. The patient tolerated the procedure well and was brought to the PACU without further incident. He will return to the medical service for further monitoring. We will likely remove the urethral Gutierrez catheter tomorrow
[2024-03-22] MEDS: SODIUM CHLORIDE FLUSH 0.9% 10 ML SYRINGE IVP SCH (12:00)
[2024-03-22] MEDS: ceFAZolin (2G) 2 GM in SODIUM CHLORIDE 0.9% MINIBAG 100 ML IV ONE (12:13)
[2024-03-22] MEDS: LACTATED RINGERS 1,000 ML IV SCH (16:12)
--- NOTE | 2024-03-22 17:02 | PHARMACY PROGRESS NOTE ---
Best Possible Medication History Admit Date and Time: 03/21/24 1352 Home Medications Medication Instructions Recorded Confirmed Type allopurinol 300 mg tablet 300 mg PO DAILY 03/01/24 03/22/24 History ergocalciferol (vitamin D2) 1,250 1,250 mcg PO FR 03/01/24 03/22/24 History mcg (50,000 unit) capsule (Vitamin D2) folic acid 1 mg tablet 1 mg PO DAILY 03/01/24 03/22/24 History hydroxyurea 500 mg capsule 500 mg PO DAILY 03/01/24 03/22/24 History Processed by: Pharmacy (Medication reconciliation completed by pharmacy services directorValarie) Medications reviewed in ED?: No Medication History completed: Yes Patient Interview: Completed Secondary Source(s): Insurance records [facility] Statement: As the person ultimately responsible for medication therapy, providers are able to order a medication from an existing home medication list in [facility] via the "Reconcile Routine" prior to Confirmation of that medication by support associate. Such practice is discouraged except when the physician, in their clinical judgment, deems that a medical need exists for a medication without regard to previous use.
--- NOTE | 2024-03-22 17:27 | ANESTHESIA POST OP EVALUATION ---
Anesthesia Post Eval Post Anesthesia Eval Vitals: Last Vital Signs Temp 37 C 03/22/24 16:23 Pulse 89 03/22/24 16:23 Resp 16 03/22/24 16:23 BP 106/60 03/22/24 16:23 Pulse Ox 98 03/22/24 16:23 O2 Flow Rate 0 03/21/24 18:57 CV Function Including HR & BP: Stable Pain Control: Satisfactory Nausea & Vomiting: Negative Mental Status: Baseline Respiratory Status: Airway Patent Hydration Status: Satisfactory Anesthesia Complications: None
--- NOTE | 2024-03-22 22:20 | PROVIDER PROGRESS NOTE ---
Subjective Prog Note Date Prog Note Date: 03/22/24 Subjective Pt reports feeling: Improved Subjective: Taken to the OR for suprapubic catheter placement this morning. He has returned with CBI through Gutierrez in his penis and the suprapubic tube in place. He is comfortable and satisfied. He refuses advance care planning discussion today. Current Medications Current Medications Current Medications: Current Medications Generic Name Dose Route Start Last Admin Trade Name Freq PRN Reason Stop Dose Admin Acetaminophen 650 mg 03/21/24 14:47 03/22/24 18:44 Acetaminophen 325 Mg Tablet PO 650 mg Q4HR PRN Administration Pain 1 to 4, or Fever Ondansetron HCl 4 mg 03/21/24 14:47 Ondansetron Odt 4 Mg Tablet TL Q6HR PRN Nausea / Vomiting Sodium Chloride 10 ml 03/22/24 11:00 03/22/24 18:45 Sodium Chloride Flush 0.9% 10 Ml Syringe IVP 10 ml Q8H ILDA Administration Sodium Chloride 10 ml 03/22/24 10:04 Sodium Chloride Flush 0.9% 10 Ml Syringe IVP PRN PRN NEEDED PER PROVIDER ORDERS Objective Vital Signs/Intake & Output Reviewed Vital Signs: Yes Vital Signs: Vital Signs x48h Temp Pulse Resp BP Pulse Ox 03/22/24 20:22 36.6 C 93 16 96/57 L 97 03/22/24 16:23 37 C 89 16 106/60 98 03/22/24 16:20 37 C 89 16 106/60 98 03/22/24 16:13 36.6 C 91 16 103/62 95 03/22/24 16:11 36.6 C 91 16 103/62 95 03/22/24 14:30 36.5 C 93 16 104/64 99 Intake & Output: Intake & Output 03/19/24 03/20/24 03/21/24 03/22/24 23:59 23:59 23:59 23:59 Intake Total 9520 / 9520 01625 / 05678 Output Total 85389 / 34176 30075 / 45705 Balance -4535 / -4535 2642 / 2642 Weight (kg) 77 kg 77 kg Objective General Appearance: positive No acute distress and Alert Eyes Bilateral: positive Normal inspection and Conjunctivae nml ENT: positive ENT inspection nml Neck: positive Nml inspection Respiratory: positive Chest non-tender, No respiratory distress and Breath sounds nml Cardiovascular: positive Regular rate & rhythm Abdomen: positive No distention Skin: positive Color nml Extremities: positive Pedal edema Neurologic/Psychiatric: positive Oriented x3 Lab Results 03/22/24 04:15 03/22/24 04:15 Other Labs: Lab Results x24hrs 03/22/24 03/22/24 03/22/24 Range/Units 09:14 04:15 04:15 WBC (4.8-10.8) x10^3/uL RBC (4.70-6.10) 10^6/uL Hgb (14.0-18.0) g/dL Hct (42.0-52.0) % MCV (80.0-94.0) fL MCH (27.0-31.0) pg MCHC (32.0-36.0) g/dL RDW (12.0-15.0) % Plt Count (130-450) 10^3/uL Neut # (Auto) Lymph # (Auto) [place] # (Auto) Eos # (Auto) Baso # (Auto) Absolute Nucleated RBC Total Counted Band Neuts % (Manual) (0 - 10) % Abnorm Lymph % (Manual) % Metamyelocytes % ( - 0) % Myelocytes % ( - 0) % Nucleated RBC % Neutrophils # (Manual) (1.5-6.6) 10^3/uL Lymphocytes # (Manual) (1.5-3.5) 10^3/uL Monocytes # (Manual) (0.0-1.0) 10^3/uL Eosinophils # (Manual) (0-0.7) 10^3/uL Basophils # (Manual) (0-0.1) 10^3/uL Differential Comment Manual Slide Review WBC Morphology (NORMAL) Platelet Estimate (NORMAL) Platelet Morphology (NORMAL) RBC Morph Micro Appear 1+ OVALOCYTES 1+ POLYCHROMASIA (NORMAL) Sodium 138 (135-145) mmol/L Potassium 3.8 (3.5-4.5) mmol/L Chloride 106 (101-111) mmol/L Carbon Dioxide 27 (21-32) mmol/L Anion Gap 5.0 L (6-13) BUN 24 H (6-20) mg/dL Creatinine 1.3 (0.6-1.3) mg/dL Estimated GFR (MDRD) 54 L (>89) Glucose 92 (74-104) mg/dL POC Whole Bld Glucose 87 (70-100) mg/dL Calcium 8.0 L (8.5-10.3) mg/dL Iron 82 (50-212) ug/dL TIBC 167 L (250-450) ug/dL % Saturation 49 (20-50) % Transferrin 119 L (203-362) mg/dL Slides for Path Review Indicated Blood Type Antibody Screen Crossmatch IS Only 03/22/24 03/22/24 03/21/24 Range/Units 04:15 04:15 09:13 WBC 19.7 H (4.8-10.8) x10^3/uL RBC 2.30 L (4.70-6.10) 10^6/uL Hgb 7.0 L* (14.0-18.0) g/dL Hct 23.2 L (42.0-52.0) % MCV 100.9 H (80.0-94.0) fL MCH 30.4 (27.0-31.0) pg MCHC 30.2 L (32.0-36.0) g/dL RDW 20.6 H (12.0-15.0) % Plt Count 36 L (130-450) 10^3/uL Neut # (Auto) Not Reportable Lymph # (Auto) Not Reportable [place] # (Auto) Not Reportable Eos # (Auto) Not Reportable Baso # (Auto) Not Reportable Absolute Nucleated RBC Not Reportable Total Counted 100 Band Neuts % (Manual) 4 (0 - 10) % Abnorm Lymph % (Manual) 0 % Metamyelocytes % 8 H ( - 0) % Myelocytes % 12 H ( - 0) % Nucleated RBC % Not Reportable Neutrophils # (Manual) 10.8 H (1.5-6.6) 10^3/uL Lymphocytes # (Manual) 2.2 (1.5-3.5) 10^3/uL Monocytes # (Manual) 2.6 H (0.0-1.0) 10^3/uL Eosinophils # (Manual) 0.0 (0-0.7) 10^3/uL Basophils # (Manual) 0.2 H (0-0.1) 10^3/uL Differential Comment MANUAL DIFFERENTIAL Manual Slide Review Indicated WBC Morphology 1+ VACUOLATION (NORMAL) Platelet Estimate DECREASED (<130,000) (NORMAL) Platelet Morphology NORMAL APPEARANCE (NORMAL) RBC Morph Micro Appear 1+ MACROCYTOSIS 1+ ANISOCYTOSIS (NORMAL) Sodium (135-145) mmol/L Potassium (3.5-4.5) mmol/L Chloride (101-111) mmol/L Carbon Dioxide (21-32) mmol/L Anion Gap (6-13) BUN (6-20) mg/dL Creatinine (0.6-1.3) mg/dL Estimated GFR (MDRD) (>89) Glucose (74-104) mg/dL POC Whole Bld Glucose (70-100) mg/dL Calcium (8.5-10.3) mg/dL Iron (50-212) ug/dL TIBC (250-450) ug/dL % Saturation (20-50) % Transferrin (203-362) mg/dL Slides for Path Review Blood Type O POSITIVE Antibody Screen NEGATIVE Crossmatch IS Only See Detail Assessment/Plan Problem List (1) Hematuria: Impression: Hematuria with ongoing CBI. Discussed case with urology today. We are having some difficulty with availability of fluids due to the national IV fluid shortage. We are having to switch fluids intermittently as we have limited quantities of different fluids available.Transfuse 1 unit of packed red cells today. Dr. Littlejohn recommended that we remove the penile catheter tomorrow. At that point patient can go home with his suprapubic tube in place. He will continue to follow-up with hematology. Cystoscopy today showed about 20 cc of clot in the bladder without actively bleeding areas. He was transfused platelets this evening. But continues to have blood-tinged irrigant coming from the penile catheter. Qualifiers: Hematuria type: gross Qualified Code(s): R31.0 - Gross hematuria (2) MDP (myeloproliferative disorder): Impression: Transfused 1 unit of packed red blood cells this morning for decreased hemoglobin. Also transfuse platelets for active bleeding and decreased platelet count. I will recheck CBC in the AM. (3) Anemia: Impression: Transfuse 1 unit of packed cells today. Check CBC in the morning. I have spent 36 minutes in the care of this patient today. This includes time [id number], review and ordering of diagnostic imaging and laboratory studies and consultation with other providers.. Monitoring the patient's signs symptoms, evaluation of medication effectiveness and patient's response to treatment. This patient has significant diagnoses that could impact his quality and quantity of life. I have attempted to engage with him in advance care planning discussions. He has sent me away saying it is not a good time. Will continue to offer the services.
[2024-03-23 04:48] LABS: BASOPHILS % (AUTO) 1.5 %; EOSINOPHILS % (AUTO) 0.3 %; HCT - HEMATOCRIT 23.1 % (42.0-52.0); HGB - HEMOGLOBIN 7.4 g/dL (14.0-18.0); LYMPHOCYTES % (AUTO) 5.3 %; MEAN CORPUSCULAR HEMOGLOBIN 31.2 pg (27.0-31.0); MEAN CORPUSCULAR VOLUME 97.5 fL (80.0-94.0); MEAN PLATELET VOLUME 11.9 fL (7.4-11.4); MONOCYTES % (AUTO) 28.1 %; NEUTROPHILS % (AUTO) 40.1 %; PLT - PLATELET COUNT 40 10^3/uL (130-450); RED BLOOD COUNT 2.37 10^6/uL (4.70-6.10); WHITE BLOOD COUNT 20.8 x10^3/uL (4.8-10.8)
[2024-03-23 04:57] LABS: CALCIUM 7.5 mg/dL (8.5-10.3); CREATININE 1.2 mg/dL (0.6-1.3); POTASSIUM 3.7 mmol/L (3.5-4.5)
[2024-03-23 04:59] LABS: ABNORMAL LYMPHS % (MANUAL) 0 %
[2024-03-23 07:10] LABS: BAND NEUTROPHILS % (MANUAL) 11 %; BASOPHILS # (MANUAL) 0.6 10^3/uL (0-0.1); BASOPHILS % (MANUAL) 3 %; LYMPHOCYTES # (MANUAL) 2.3 10^3/uL (1.5-3.5); LYMPHOCYTES % (MANUAL) 10 %; METAMYELOCYTES % (MANUAL) 5 %; MONOCYTES # (MANUAL) 4.2 10^3/uL (0.0-1.0); MYELOCYTES % (MANUAL) 8 %; NEUTROPHILS # (MANUAL) 10.2 10^3/uL (1.5-6.6); NUCLEATED RBC (MANUAL) 1 %; PROMYELOCYTES % (MANUAL) 4 %; REACTIVE LYMPHS % (MANUAL) 1 %
[2024-03-23 07:11] LABS: PLATELET ESTIMATE, MANUAL DECREASED (<130,000) (NORMAL); PLATELET MORPHOLOGY NORMAL APPEARANCE (NORMAL)
[2024-03-23 07:12] LABS: DIFFERENTIAL COMMENT MANUAL DIFFERENTIAL; WBC MORPHOLOGY (MULTIPLE) 1+ VACUOLATION (NORMAL)
[2024-03-23] MEDS: HYDROcod/ACETAM 10 MG/325 MG TABLET PO ONE (07:29)
[2024-03-23 11:52] VITALS: O2SAT 97
[2024-03-23 16:45] VITALS: BP 116/66; TEMP 98.1
--- NOTE | 2024-03-23 17:33 | Discharge Summary ---
"Discharge Summary Admit Date: 03/21/24 Discharge Date: 03/23/24 Discharging Provider: Zuly Mckenzie PA-C Primary Care Provider: MICHELE Fuller Code Status: Do Not Attempt Resuscitation DIAGNOSES Discharge Diagnoses with Status of Each Condition: (1) Hematuria: mostly resolved. no active bleeding on cystoscopy (2) MDP (myeloproliferative disorder): Chronic, actively treated. (3) Anemia: secondary to #2 (4) atonic bladder, chronic. HPI History of Present Illness: 78-year-old male who presents to the hospital with hematuria. He has been struggling with this on and off for several weeks. Carries a diagnosis of myelodysplastic syndrome/chronic myelo monocytic leukemia and is followed by Dr. Sandoval. He is on hydroxyurea at home. Was admitted to our facility from 01 March to 05 March for hematuria. Was taken to the OR by Dr. Littlejohn for cystoscopy with clot evacuation. 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 Shelly presented to the emergency department after trying to remove his own catheter with urethral bleeding. Was then taken back to the operating room for cystoscopy with clot evacuation at that time, there was blood clot in the urethra and prostatic fossa. Once again a three-way 22 Croatian catheter was placed and patient underwent CBI. He was discharged to home with plans for urology follow-up on 04/01 for catheter removal. Rupa is his surrogate medical decision maker, there is not a POLST on file. CONSULTS | PROCEDURES Procedures: Cystoscopy. placement of suprapubic catheter. HOSPITAL COURSE Hospital Course: (1) Hematuria: Came in for recurrent hematuria with indwelling penile Rosenbaum catheter. Underwent continuous bladder irrigation. Dr. Littlejohn took him to the OR for cystoscopy did not see any active bleeding. Dr. Littlejohn placed a suprapubic catheter. Patient tolerated this quite well. The penile Rosenbaum was removed on the date of discharge to the patient's great satisfaction and he was discharged home with suprapubic tube in place. (2) MDP (myeloproliferative disorder): Impression: Received 2 units of packed red cells this admission for anemia. This anemia is probably less attributable to his urinary tract blood loss a more attributable to his myelodysplastic syndrome.He also received 1 unit of platelets this admission for low platelet count with active bleeding. (3) Anemia: See above. 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 ALLERGIES Allergies Allergy/AdvReac Type Severity Reaction Status Date / Time Sulfa (Sulfonamide Allergy Severe Unknown Verified 03/21/24 08:57 Antibiotics) MEDICATIONS Ambulatory Orders Medication Instructions Recorded Confirmed allopurinol 300 mg tablet 300 mg PO DAILY 03/01/24 03/22/24 ergocalciferol (vitamin D2) 1,250 1,250 mcg PO FR 03/01/24 03/22/24 mcg (50,000 unit) capsule (Vitamin D2) folic acid 1 mg tablet 1 mg PO DAILY 03/01/24 03/22/24 hydroxyurea 500 mg capsule 500 mg PO DAILY 03/01/24 03/22/24 PHYSICAL EXAM AT DISCHARGE Physical Exam Other/Comments: General Appearance: positive No acute distress and Alert Eyes Bilateral: positive Normal inspection and Conjunctivae nml ENT: positive ENT inspection nml Neck: positive Nml inspection Respiratory: positive Chest non-tender, No respiratory distress and Breath sounds nml Cardiovascular: positive Regular rate & rhythm Abdomen: positive No distention Skin: positive Color nml Extremities: positive Pedal edema Neurologic/Psychiatric: positive Oriented x3 blood tinged urine in rosenbaum bag. penile catheter removed, patient feels much better with this out. LABS 03/23/24 04:06 03/23/24 04:06 Other Lab Results: WBC chronically elevated due to MDS. procalcitonin was negative. SEPSIS Current Stage of Sepsis: Ruled out FOLLOW UP Follow Up: Dr Littlejohn, one month for suprapubic tube change. PCP 7-10 days post admission, routine post dc check. should have CBC. Sr Sandoval, as scheduled. TIME SPENT Time Spent in Discharge (Minutes): 45 Discharge Plan Discharge Patient Disposition: Home Health Service Condition: Stable Prescriptions: Continued hydroxyurea 500 mg capsule 500 mg PO DAILY folic acid 1 mg tablet 1 mg PO DAILY allopurinol 300 mg tablet 300 mg PO DAILY ergocalciferol (vitamin D2) [Vitamin D2] 1,250 mcg (50,000 unit) capsule 1,250 mcg PO FR Patient Comments: Patient says he's taking once weekly on Fridays Activity Restrictions: Activity as Tolerated Diet: Regular Health Concerns: You came into the hospital because you had bleeding in your urine. Dr. Littlejohn took you to the operating room and fixed your situation with your catheter. The catheter that you have right now should stay in for life. You have gotten several units of red cells while you have been here. You have also gotten a unit of platelets. The reason that you need the reason you have gotten red cells and platelets is because your bone marrow is not working very well. I think you are losing a few red blood cells through your urine but I do not think it is enough to make that much of a difference. You should follow-up with Dr. Littlejohn as planned. You should follow-up with your primary care doctor in 7 to 10 days. You should follow-up with Dr. Sandoval as planned. Care Plan Goals: Keep your catheter for life! Home health will call you and set up a meeting at your house Plan of Treatment: You have a suprapubic tube in place. This will drain your bladder. Do not catheterize your penis anymore unless instructed by Dr. Littlejohn. Print Language: Macedonian Patient Instructions: Surgery Anesthesia After, Catheter Bag Urinary Empty Clean, Catheter Suprapubic Care Dc Follow-up Care: Khadar Littlejohn MD [Provider Admit Priv/Credential] - (Your appointment on April 01 will be rescheduled and you will follow-up and likely 1 months time for suprapubic tube catheter exchange in Dr. Littlejohn's office) Nadya Severino ARNP [Provider Admit Priv/Credential] - Charli Sandoval MD [Provider Admit Priv/Credential] -"
--- NOTE | 2024-03-23 20:20 | ADVANCE CARE PLANNING NOTE ---
Advance Care Planning Planning Encounter Date: 03/23/24 Purpose: POLST goals Parties in Attendance: Rupa () and Zuly Mckenzie PA-C Decisional Capacity of the Patient: alert and oriented with insight. Diagnosis for Encounter (1) Hematuria: Qualifiers: Hematuria type: gross Qualified Code(s): R31.0 - Gross hematuria (2) MDP (myeloproliferative disorder): (3) Anemia: Encounter Subjective/Patient's Story: lives with , they both are getting older, for 4.5 years, and trying to help each other. Cyrus is starting to see that his health is failing. He is very restorationist, and beleives it all to be in God's hands. Objective/Medical Story: MDS with anemia, and recent issues with hematuria, and bleeding from his bladder. Has had much physical discomfort related to this. Goals of Care: Cyrus emphatically wants to be DNR/DNI Plan: POLST completed, Rupa is his medical decision maker. Code Status: Do Not Attempt Resuscitation Time spent on advance care plannin min
[2024-03-26 07:09] LABS: PATHOLOGIST SLIDE COMMENTS SEE SEPARATE REPORT
== END 2024-03-23 18:30 | disposition home health service (06) | DRG 696 ==
LOC: MS2 08:51 → ED 08:51 → MS2 14:37
PROVIDERS: ADMIT Physician Assistant Medical; ATTEND Physician Assistant Medical
DX: D69.6 Thrombocytopenia, unspecified; N31.2 Flaccid neuropathic bladder, not elsewhere classified; Z87.891 Personal history of nicotine dependence; N40.0 Benign prostatic hyperplasia without lower urinary tract symptoms; D46.9 Myelodysplastic syndrome, unspecified; Z66 Do not resuscitate; C92.10 Chronic myeloid leukemia, BCR/ABL-positive, not having achieved remission; D63.8 Anemia in other chronic diseases classified elsewhere; I95.9 Hypotension, unspecified; D64.9 Anemia, unspecified; Z96.0 Presence of urogenital implants; R31.0 Gross hematuria

== ENCOUNTER 2024-03-28 08:55 | Observation (INO) ==
--- NOTE | 2024-03-28 09:21 | ED Physician Documentation ---
PD HPI SYNCOPE Stated complaint Stated Complaint: WEAKNESS Chief complaint Chief Complaint: General History obtained from History obtained from: Patient (The patient is having bladder pain with no output from the suprapubic catheter overnight. Unable to urinate. Distended a bdomen with significant pain and he is feeling lightheaded and weak.), Family (spouse) and EMS (EMS was called as the patient was feeling generally weak and having a lot of abdominal pain and was near syncope. He had gone to the bathroom and was unable to get up from the toilet due to weakness.Blood pressure by EMS was noted to be just under 100 systolic.) History of Present Illness Witnessed: Witnessed (spouse) Timing - onset: How many days ago (The patient does have a history of generalized weakness and has been frail and weak for quite a while. He has been having increased weakness and weight loss. History of myelodysplastic disease and had been seeing a specialist. Recently with urinary retention and had a sup rapubic catheter placed.) Preceding symptoms: Abdominal pain, Light headed and Generalized weakness Associated symptoms: Abdominal pain; No Chest pain or Dyspnea Contributing factors: Decreased PO intake and Noxious stimulae Injury occurred: No Fell or Head injury Meds/Allgy Home Medications Ambulatory Orders Medication Instructions Recorded Confirmed allopurinol 300 mg tablet 300 mg PO DAILY 03/01/24 03/22/24 ergocalciferol (vitamin D2) 1,250 1,250 mcg PO FR 03/01/24 03/22/24 mcg (50,000 unit) capsule (Vitamin D2) folic acid 1 mg tablet 1 mg PO DAILY 03/01/24 03/22/24 hydroxyurea 500 mg capsule 500 mg PO DAILY 03/01/24 03/22/24 Allergies Allergies Allergy/AdvReac Type Severity Reaction Status Date / Time Sulfa (Sulfonamide Allergy Severe Unknown Verified 03/28/24 08:58 Antibiotics) [facility], [facility] Medical History Medical History (Updated 03/28/24 @ 13:54 by Cyrus Martinez MD) MDS/MPN (myelodysplastic/myeloproliferative neoplasms) Asthma Obstructive sleep apnea Anemia Bladder cancer Hematuria Bladder atonia History of retinal detachment Surgical History Surgical History Hx of detached retina repair Social History Social History Smoking Status: Former smoker If you are a former smoker, when did you quit? (Date/Year): 1966 Second hand tobacco smoke exposure: No Do you dip or chew tobacco?: No Do you vape?: No Patient requests smoking cessation consult: No Initiate information on smoking cessation: No Living arrangement: At home Marital Status: Living Condition: With spouse/s.o. 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 ) (severe), abnormal body habitus (thin) and (underweight) and level of alertness abnormal (obtunded) HENMT head/scalp atraumatic Respiratory breath sounds equal bilaterally and normal respiratory effort Cardiovascular heart rate abnormal (tachycardic) and regular rhythm noted Gastrointestinal distended (focally distended in bladder area about small watermelon size. ) suprapubic catyheter in place lower abd without output at this time. Genitourinary no CVA tenderness Results Vitals Vitals: Vital Signs - 24 hr 03/28/24 08:58 03/28/24 09:11 03/28/24 09:16 Temperature 36.5 C Temperature Source Oral Pulse Rate 105 H 110 H 110 H Pulse Rate [Monitoring electrodes] Respiratory Rate 24 20 23 Blood Pressure 64/42 L 87/53 L 100/77 Blood Pressure [Left Brachial artery] O2 Saturation 100 100 100 O2 Source Room air Room air Room air If not protocol: Oxygen Flow, liters/minute Sedation scale Pain Intensity 10 10 03/28/24 09:24 03/28/24 09:26 03/28/24 09:33 Temperature Temperature Source Pulse Rate 102 H 103 H 101 H Pulse Rate [Monitoring electrodes] Respiratory Rate 23 23 21 Blood Pressure 58/39 L 73/59 L 71/43 L Blood Pressure [Left Brachial artery] O2 Saturation 99 99 100 O2 Source Room air Room air Room air If not protocol: Oxygen Flow, liters/minute Sedation scale Pain Intensity 03/28/24 09:45 03/28/24 10:00 03/28/24 10:15 Temperature Temperature Source Pulse Rate 104 H 96 99 Pulse Rate [Monitoring electrodes] Respiratory Rate 21 19 19 Blood Pressure 86/49 L 79/47 L 85/52 L Blood Pressure [Left Brachial artery] O2 Saturation 99 100 100 O2 Source Room air Room air Room air If not protocol: Oxygen Flow, liters/minute Sedation scale Pain Intensity 7 7 03/28/24 10:30 03/28/24 11:15 03/28/24 11:27 Temperature 36.6 C Temperature Source Temporal Artery Scan Pulse Rate 99 Pulse Rate [Monitoring electrodes] Respiratory Rate 20 105 H Blood Pressure 91/53 L Blood Pressure [Left Brachial artery] 76/50 L O2 Saturation 100 96 O2 Source Room air Room air If not protocol: Oxygen Flow, liters/minute 23 Sedation scale 0-Fully awake Pain Intensity 10 0 03/28/24 11:32 03/28/24 11:47 03/28/24 11:54 Temperature 36.3 C L 36.3 C L Temperature Source Temporal Artery Scan Temporal Artery Scan Pulse Rate 98 Pulse Rate [Monitoring electrodes] 101 H 95 Respiratory Rate 18 16 16 Blood Pressure 73/50 L Blood Pressure [Left Brachial artery] 76/46 L 82/50 L O2 Saturation 99 100 98 O2 Source Room air Room air Room air If not protocol: Oxygen Flow, liters/minute Sedation scale 0-Fully awake 0-Fully awake Pain Intensity 8 7 03/28/24 12:03 03/28/24 12:20 03/28/24 12:20 Temperature 36.3 C L 36.2 C L 36.2 C L Temperature Source Temporal Artery Scan Temporal Artery Scan Temporal Artery Scan Pulse Rate Pulse Rate [Monitoring electrodes] 93 93 92 Respiratory Rate 19 15 16 Blood Pressure Blood Pressure [Left Brachial artery] 83/49 L 81/48 L 81/48 L O2 Saturation 98 100 100 O2 Source Room air Room air Room air If not protocol: Oxygen Flow, liters/minute Sedation scale 0-Fully awake 0-Fully awake 0-Fully awake Pain Intensity 5 3 03/28/24 12:30 03/28/24 12:32 03/28/24 12:45 Temperature Temperature Source Pulse Rate 90 92 Pulse Rate [Monitoring electrodes] Respiratory Rate 18 16 Blood Pressure 83/47 L 78/46 L Blood Pressure [Left Brachial artery] O2 Saturation 99 100 O2 Source Room air Room air If not protocol: Oxygen Flow, liters/minute Sedation scale Pain Intensity 3 3 3 03/28/24 13:00 03/28/24 13:17 03/28/24 13:30 Temperature 36.3 C L Temperature Source Temporal Artery Scan Pulse Rate 94 89 Pulse Rate [Monitoring electrodes] 92 Respiratory Rate 19 14 16 Blood Pressure 89/53 L 101/63 Blood Pressure [Left Brachial artery] 91/62 O2 Saturation 96 99 100 O2 Source Room air Room air Room air If not protocol: Oxygen Flow, liters/minute Sedation scale 0-Fully awake Pain Intensity 2 0 0 03/28/24 14:00 Temperature Temperature Source Pulse Rate 91 Pulse Rate [Monitoring electrodes] Respiratory Rate 16 Blood Pressure 84/52 L Blood Pressure [Left Brachial artery] O2 Saturation 100 O2 Source If not protocol: Oxygen Flow, liters/minute Sedation scale Pain Intensity 2 Oxygen O2 Source Room air Labs Labs: Laboratory Tests 03/28/24 09:27 WBC 99.9 H* RBC 1.47 L Hgb 4.7 L* Hct 15.4 L* MCV 104.8 H MCH 32.0 H MCHC 30.5 L RDW 21.6 H Plt Count 78 L Neut # (Auto) Not Reportable Lymph # (Auto) Not Reportable [place] # (Auto) Not Reportable Eos # (Auto) Not Reportable Baso # (Auto) Not Reportable Absolute Nucleated RBC Not Reportable Total Counted 100 Band Neuts % (Manual) 7 Abnorm Lymph % (Manual) 0 Metamyelocytes % 4 H Myelocytes % 8 H Nucleated RBC % Not Reportable Neutrophils # (Manual) 53.9 H Lymphocytes # (Manual) 4.0 H Monocytes # (Manual) 29.0 H Eosinophils # (Manual) 1.0 H Basophils # (Manual) 0.0 Nucleated RBCs 23 Differential Comment MANUAL DIFFERENTIAL Manual Slide Review Indicated Platelet Estimate DECREASED (<130,000) RBC Morph Micro Appear 4+ ANISOCYTOSIS Sodium 139 Potassium 3.7 Chloride 107 Carbon Dioxide 21 Anion Gap 11.0 BUN 43 H Creatinine 1.8 H Estimated GFR (MDRD) 37 L Glucose 144 H Calcium 8.6 Magnesium 2.1 Total Bilirubin 1.4 H AST 18 ALT 10 Alkaline Phosphatase 84 Total Protein 4.9 L Albumin 3.1 L Globulin 1.8 L Albumin/Globulin Ratio 1.7 Lipase 16 Blood Type O POSITIVE Antibody Screen NEGATIVE Crossmatch IS Only See Detail PD Medical Decision Making ED course Complexity details: considered differential (He is hypotensive on arrival. Very distended bladder visible through a cachectic frail abdomen. Very tender locally. The suprapubic catheter is not draining.), d/w patient and d/w family ED course: The patient has a long history of myelodysplastic disease and recently had been having issues with urinary retention with a Gutierrez catheter. He had placement of a suprapubic catheter by urology just within the last week to provide a easier route for urinary drainage. The patient states he was getting some blood out from that yesterday into today and has blockage of the outflow with distention of the bladder. He comes in with an obviously distended bladder. Bedside scanner was large amount. We were able to flush a little and pull out clots from the suprapubic catheter and got out approximately 850 mL of urine. This provided for deflation of the inflow distended bladder and relief of a lot of discomfort. However he was still having some discomfort of it and subsequently irrigating the bladder more through the suprapubic and pulling out got more clots but not readily. I talked with Khadar Littlejohn urology about this. He suggested placing a three- way irrigating catheter and the urethra into the bladder and irrigating the clots out. The patient had been anemic previously but blood count today is now hemoglobin 4.7 presumably from the acute blood loss from the bladder. In discussion with the patient and his , they are focused largely on comfort and are hoping for hospice intake but up to this point without the acute bleeding and tipping point now, not clear on outlook for other medical issues. He does have a lot of frailty and multisystem weakness. GIven the ongoing blood loss and hopotension, this could be acutely serious as current hgb is already threatening to organ perfusion. The current urinary retention is quite uncomfortable and he does not feel nor his that the clogged suprapubic catheter is comfortable and it does cause a lot of pain so would want treatment toward that. In the short-term they would like blood transfusion to have them less lightheaded and pale and dyspnea right now. The patient was ordered for 2 units packed red cells initially. His platelet count is 78 so not needing platelet transfusion at this time. Blood test otherwise showed a white count of 99 which is significantly higher than his usual MDS level in the 20s. Social work did talk with the patient and hospice and they do have an intake set up for 10:00 tomorrow. However in the meantime we are still focused on comfort which includes clearing of the clots from the bladder etc. Other issue is the acute blood loss and that could be a tipping point for critical outcome today. He is still having a large amount of blood output. They are not really wanting surgical intervention per se; Dr. Littlejohn recommendation is CBI to help with clots and stop bleeding, as is common treatment for this. Again focuses towards comfort measures and hospice per social work cannot see intake the patient prior to tomorrow morning. The patient's blood pressure is 78/46. He is not tachycardic. He does feel lightheaded and weak. At this point I think the bleeding out is comparable to the blood going in and if we focus on comfort measures and stop transfusion likely would succumb to severe blood loss. Would keep the Gutierrez in for good irrigation of the bladder at least outflow from the bladder so is not uncomfortable from that. I think he is at close to end-of-life issues at this point given the blood loss. We would try to talk with utilization review again to see if he could meet criteria in either blood loss, urinary retention with irrigation or end-of-life care as any of these seem like they should meet observation criteria to me. I had talked with the hospitalist after discussion with urology and they were willing to accept the patient in observation but called back and I was told by the hospitalist that utilization review said he did not meet criteria and that we could do the CBI and transfusions in the ER. We certainly can we discussed with the patient we are doing these interventions now but again with the focus towards comfort and likely hospice in this acute situation, likely will face just end-of-life care. The CBI started to clear out and was more of a julián color. At this point the patient was having a bit more general color and less pallor and more alertness. Blood pressure actually increased to just over 100 (101/54 I believe). However after short time there came another small surge of blood and clots from the catheters. The patient's blood pressure decreased again to 87/55. I believe at this point the rate of bleeding is matching or surpassing the 2 units of blood in. Discussion with the and patient again still reinforces the DNR as I think this would be futile anyway without addressing the main problems. They are not looking toward more aggressive treatment such as surgical intervention etc. They are hoping some of the children who live in the nearby [facility] area would be able to come and talk with the patient and spent some time. As such I believe we are temporizing with some transfusion at this point with still the goal of seeing if the bleeding stops. I also added TXA administration IV. The main treatment aside from surgical is the irrigation of clots to see if bleeding stops. Will continue with fluid infusions. Holding off on any pressor support as fluid and blood are more appropriate. The decision from the floor and utilization review is the patient can be brought in on observation criteria so orders are written by the hospitalist team and the patient will be transferred to the floor. The patient is remaining comfortable at this point with not having distended bladder etc. Critical Care Critical Care Provided: Yes Time(min): 60 Time Includes: Direct patient care, Reassess patient, Document care, Coordinate care and Family consult for tx dec Data interpretation: Labs and Pulse ox Discharge Plan Discharge Patient Disposition: ED Place in Observation Condition: Poor Clinical Impression: Hemorrhage, Gross hematuria, Acute urinary retention, Fatigue, Anemia, Myelodysplasia (myelodysplastic syndrome), Acute hypotension Interventions: ED Admission Assessment Last Done: 03/28/24 14:33
[2024-03-28 09:42] LABS: BASOPHILS % (AUTO) 1.2 %; EOSINOPHILS % (AUTO) 0.2 %; LYMPHOCYTES % (AUTO) 3.9 %; MEAN CORPUSCULAR HGB CONC 30.5 g/dL (32.0-36.0); MEAN CORPUSCULAR VOLUME 104.8 fL (80.0-94.0); MONOCYTES % (AUTO) 27.5 %; NEUTROPHILS % (AUTO) 39.4 %; PLT - PLATELET COUNT 78 10^3/uL (130-450); RED BLOOD COUNT 1.47 10^6/uL (4.70-6.10); RED CELL DISTRIBUTION WIDTH 21.6 % (12.0-15.0)
[2024-03-28 09:46] LABS: HGB - HEMOGLOBIN 4.7 g/dL (14.0-18.0); WHITE BLOOD COUNT 99.9 x10^3/uL (4.8-10.8)
[2024-03-28 09:47] LABS: HCT - HEMATOCRIT 15.4 % (42.0-52.0); SLIDE REVIEW? Indicated
[2024-03-28] MEDS: SODIUM CHLORIDE 0.9% 1,000 ML IV STA ×3 (09:47→12:59)
[2024-03-28 09:48] LABS: ABNORMAL LYMPHS % (MANUAL) 0 %
[2024-03-28 09:51] LABS: MAGNESIUM 2.1 mg/dL (1.7-2.3)
[2024-03-28 09:57] LABS: ALBUMIN 3.1 g/dL (3.2-5.5); ALBUMIN/GLOBULIN RATIO 1.7 (1.0-2.2); BILIRUBIN,TOTAL 1.4 mg/dL (0.2-1.0); CALCIUM 8.6 mg/dL (8.5-10.3); CREATININE 1.8 mg/dL (0.6-1.3); POTASSIUM 3.7 mmol/L (3.5-4.5); TOTAL PROTEIN 4.9 g/dL (6.4-8.9)
[2024-03-28 10:34] LABS: BAND NEUTROPHILS % (MANUAL) 7 %; LYMPHOCYTES % (MANUAL) 4 %; METAMYELOCYTES % (MANUAL) 4 %; MYELOCYTES % (MANUAL) 8 %; NEUTROPHILS # (MANUAL) 53.9 10^3/uL (1.5-6.6); NUCLEATED RBC (MANUAL) 23 %
[2024-03-28 10:35] LABS: RBC MORPHOLOGY (MULTIPLE) 4+ ANISOCYTOSIS (NORMAL)
[2024-03-28 10:36] LABS: DIFFERENTIAL COMMENT MANUAL DIFFERENTIAL; PLATELET ESTIMATE, MANUAL DECREASED (<130,000) (NORMAL)
[2024-03-28] MEDS: HYDROmorphone 1 MG/ML CARPUJECT IVP STA (11:27)
[2024-03-28] MEDS: MAG HYDROX/AL HYDROX/SIMETH 30 ML UDC PO STA (11:27)
[2024-03-28] MEDS: ONDANSETRON 4 MG/2 ML VIAL IVP STA ×2 (13:04→14:16)
[2024-03-28] MEDS: TRANEXAMIC ACID IN NACL 1,000 MG/100 ML BAG IV STA (14:03)
[2024-03-28] MEDS ORDERED: ONDANSETRON 4 MG/2 ML VIAL ONE (14:13)
--- NOTE | 2024-03-28 14:13 | HISTORY & PHYSICAL EXAMINATION ---
Chief Complaint Chief Complaint Chief Complaint: Urinary retention History of Present Illness Admitted From Admitted From:: Home with History Obtained From History obtained from: Interview with patient, History of Present Illness HPI Comment/Other: 78-year-old male H significant for MDP, suprapubic catheter, atonic bladder presents with bleeding which has clotted off his suprapubic catheter. He was noted to have urinary retention per ER staff, so urologist was contacted by the ER who recommended three-way Gutierrez catheter and CBI. His creatinine is 1.8, up from 1.2. He was also noted to have a hemoglobin of 4.7. He was prepped for 2 units of PRBCs, which were haying at time of my interview. Hospitalist was contacted for observation as he is still actively bleeding and has an acute blood loss anemia Meds/Allgy Home Medications Ambulatory Orders Medication Instructions Recorded Confirmed allopurinol 300 mg tablet 300 mg PO DAILY 03/01/24 03/28/24 ergocalciferol (vitamin D2) 1,250 1,250 mcg PO FR 03/01/24 03/28/24 mcg (50,000 unit) capsule (Vitamin D2) folic acid 1 mg tablet 1 mg PO DAILY 03/01/24 03/28/24 hydroxyurea 500 mg capsule 500 mg PO DAILY 03/01/24 03/28/24 Allergies Allergies Allergy/AdvReac Type Severity Reaction Status Date / Time Sulfa (Sulfonamide Allergy Severe Unknown Verified 03/28/24 08:58 Antibiotics) [facility] Medical History Medical History (Updated 03/28/24 @ 13:54 by Cyrus Martinez MD) MDS/MPN (myelodysplastic/myeloproliferative neoplasms) Asthma Obstructive sleep apnea Anemia Bladder cancer Hematuria Bladder atonia History of retinal detachment Surgical History Surgical History Hx of detached retina repair Social History Social History Smoking Status: Never smoker If you are a former smoker, when did you quit? (Date/Year): 1966 Second hand tobacco smoke exposure: No Do you dip or chew tobacco?: No Do you vape?: No Patient requests smoking cessation consult: No Initiate information on smoking cessation: No Living arrangement: At home Marital Status: Living Condition: With spouse/s.o. 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 Service: Yes Dates of Service: [id number] Are you following a diet prescribed by a doctor: No Are you following a special diet: Yes (Golo Diet) POLST Patient has POLST: No POLST Status: Full Code Review of Systems Status of ROS: 10 or more systems reviewed and unremarkable except as noted in history and below Constitutional Denies: Fever or Chills Cardiovascular Denies: Irregular heart rate, chest pain, palpitations or shortness of breath with exertion Respiratory Denies: Shortness of breath or Cough Gastrointestinal Denies: Abdominal pain or Abdominal distention Genitourinary Reports: Blood in urine and other (Clotted off suprapubic catheter) Exam Constitutional no apparent distress Frail elderly male [facility] normocephalic and head/scalp atraumatic Eyes PERRL Neck/C-Spine visual inspection normal Lymph no lymphadenopathy noted Chest inspection of chest normal Respiratory breath sounds equal bilaterally Cardiovascular normal heart rate noted Gastrointestinal abdomen normal to inspection Genitourinary Suprapubic catheter, urethral catheter both in place with CBI running and bloody urine output Extremities normal to inspection Neurology it solutions sales consultant II-XII intact Psychiatry oriented x3 Skin skin color normal Conclusion/Plan Problem List (1) Hemorrhage: Plan: Gross hematuria Resulting in acute blood loss anemia, for which urology was contacted by ER provider Three-way Gutierrez in place with CBI running Actively receiving blood transfusion TXA ordered by ER provider I have ordered H&H every 6 hours (2) Gross hematuria: Plan: Urology contacted by ER provider Three-way Gutierrez in place with CBI Manage hemorrhage as above Manual irrigation as needed (3) Myelodysplasia (myelodysplastic syndrome): Plan: He has already been seen by hospice, and is scheduled to start hospice care tomorrow at 10 AM If he survives the night, he would like to discharge onto this hospice service I have ordered Dilaudid 0.5 mg IV as needed for severe pain Plan Placed in observation for acute management of blood loss anemia due to gross hematuria DNR His is a surrogate decision maker He has a POLST from a previous admission which reflects the same Lab Results Lab results reviewed: Yes 03/28/24 20:18 03/28/24 17:32 Core Measures Anticipated LOS I expect patient to be DC'd or transferred within 96 hours.: Yes DVT/VTE - Prophylaxis VTE/DVT Device ordered at admit?: Yes
[2024-03-28] MEDS ORDERED: ACETAMINOPHEN 325 MG TABLET PO PRN (14:28)
[2024-03-28] MEDS ORDERED: ONDANSETRON ODT 4 MG TABLET TL PRN (14:28)
[2024-03-28 15:07] LABS: HGB - HEMOGLOBIN 6.2 g/dL (14.0-18.0)
[2024-03-28] MEDS: HYDROmorphone 0.5 MG/0.5 ML SYRINGE IVP PRN (15:31)
[2024-03-28] MEDS: ONDANSETRON 4 MG/2 ML VIAL IVP PRN (15:31)
[2024-03-28] MEDS: MIDODRINE 10 MG TABLET PO SCH (16:06)
[2024-03-28] MEDS: CALCIUM GLUC 1,000MG/50ML-NACL 1,000 MG/50 ML BAG IV ONE (16:06)
[2024-03-28] MEDS: SODIUM CHLORIDE FLUSH 0.9% 10 ML SYRINGE IVP SCH (16:07)
[2024-03-28 17:40] LABS: HGB - HEMOGLOBIN 7.7 g/dL (14.0-18.0)
[2024-03-28 17:46] LABS: VBG PCO2 31.4 mmHg (41-51); VBG PH 7.327 (7.31-7.41); VBG PO2 27.3 mmHg (25-47)
[2024-03-28 17:47] LABS: VBG BASE EXCESS -9.6 mmol/L (-2 - +2); VBG TOTAL CO2 17.6 mmol/L (24-29)
[2024-03-28 17:52] LABS: CALCIUM 7.8 mg/dL (8.5-10.3); POTASSIUM 4.5 mmol/L (3.5-4.5)
[2024-03-28] MEDS: SODIUM CHLORIDE FLUSH 0.9% 10 ML SYRINGE IVP PRN (19:10)
[2024-03-28] MEDS ORDERED: PROCHLORPERAZINE 10 MG/2 ML VIAL ONE (20:02)
[2024-03-28] MEDS: LACTATED RINGERS 1,000 ML IV ONE (20:07)
[2024-03-28] MEDS: PROCHLORPERAZINE 10 MG/2 ML VIAL IVP PRN (20:07)
[2024-03-28 20:24] LABS: HCT - HEMATOCRIT 21.8 % (42.0-52.0); HGB - HEMOGLOBIN 7.2 g/dL (14.0-18.0)
[2024-03-28] MEDS: LACTATED RINGERS 1,000 ML IV SCH (21:17)
[2024-03-28] MEDS: SODIUM BICARBONATE ABBOJECT 50 MEQ/50 ML SYRINGE IVP ONE (21:18)
--- NOTE | 2024-03-28 22:18 | MISCELLANEOUS PROVIDER NOTE ---
Miscellaneous Provider Note - Note: Multiple conversations were held with the patient and family members at bedside. His already known poor prognosis was discussed. His primary goal at this point is to at home. His blood pressures have been soft. I am doing everything medically short of vasopressors to correct this including fluid boluses, acid- base optimization, blood product administration. Given that he is discharging to hospice in the morning, decision had to be made regarding whether or not he should be moved to the ICU on pressors. If he is on pressors, he will not be able to make his appointment with hospice in the morning. It was decided that we will continue reasonable medical efforts to bolster his blood pressure short of vasopressors as his priority is to leave in the morning. Total time in discussion with family and ordering lab work and medication in addition to his already complicated admission required greater than 90 minutes time
[2024-03-29 03:30] LABS: HCT - HEMATOCRIT 21.1 % (42.0-52.0); HGB - HEMOGLOBIN 7.1 g/dL (14.0-18.0)
[2024-03-29 04:55] LABS: BASOPHILS % (AUTO) 2.2 %; EOSINOPHILS % (AUTO) 0.2 %; HCT - HEMATOCRIT 20.5 % (42.0-52.0); LYMPHOCYTES % (AUTO) 2.3 %; MEAN CORPUSCULAR HEMOGLOBIN 30.9 pg (27.0-31.0); MEAN CORPUSCULAR HGB CONC 33.2 g/dL (32.0-36.0); MEAN CORPUSCULAR VOLUME 93.2 fL (80.0-94.0); MEAN PLATELET VOLUME 13.6 fL (7.4-11.4); NEUTROPHILS % (AUTO) 40.2 %; PLT - PLATELET COUNT 54 10^3/uL (130-450); RED CELL DISTRIBUTION WIDTH 17.3 % (12.0-15.0)
[2024-03-29 05:11] LABS: HGB - HEMOGLOBIN 6.8 g/dL (14.0-18.0); WHITE BLOOD COUNT 86.6 x10^3/uL (4.8-10.8)
[2024-03-29 05:12] LABS: ABNORMAL LYMPHS % (MANUAL) 0 %
[2024-03-29 05:14] LABS: CALCIUM 7.2 mg/dL (8.5-10.3); CREATININE 2.6 mg/dL (0.6-1.3); POTASSIUM 4.5 mmol/L (3.5-4.5)
[2024-03-29 05:59] LABS: BAND NEUTROPHILS % (MANUAL) 8 %; LYMPHOCYTES # (MANUAL) 4.3 10^3/uL (1.5-3.5); LYMPHOCYTES % (MANUAL) 5 %; METAMYELOCYTES % (MANUAL) 13 %; MONOCYTES # (MANUAL) 15.6 10^3/uL (0.0-1.0); MYELOCYTES % (MANUAL) 23 %; NEUTROPHILS # (MANUAL) 34.6 10^3/uL (1.5-6.6); PROMYELOCYTES % (MANUAL) 1 %
[2024-03-29 06:01] LABS: PLATELET ESTIMATE, MANUAL DECREASED (<130,000) (NORMAL); PLATELET MORPHOLOGY NORMAL APPEARANCE (NORMAL); RBC MORPHOLOGY (MULTIPLE) 2+ POLYCHR (NORMAL)
[2024-03-29 06:02] LABS: DIFFERENTIAL COMMENT MANUAL DIFFERENTIAL
--- NOTE | 2024-03-29 07:23 | Discharge Summary ---
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 He was noted to have urinary retention per ER staff, so urologist was contacted by the ER who recommended three-way Gutierrez catheter and CBI. His creatinine is 1.8, up from 1.2. He was also noted to have a hemoglobin of 4.7. He was prepped for 2 units of PRBCs, which were haying at time of my interview. Hospitalist was contacted for observation as he is still actively bleeding and has an acute blood loss anemia HOSPITAL COURSE Hospital Course: He was placed in observation status for acute blood loss anemia secondary to gross hematuria. He received several units of blood products overnight and was placed on midodrine to support his low blood pressures. This morning, he discharged home so that he could be placed on hospice ALLERGIES Allergies Allergy/AdvReac Type Severity Reaction Status Date / Time Sulfa (Sulfonamide Allergy Severe Unknown Verified 03/28/24 08:58 Antibiotics) MEDICATIONS Ambulatory Orders Medication Instructions Recorded Confirmed allopurinol 300 mg tablet 300 mg PO DAILY 03/01/24 03/28/24 ergocalciferol (vitamin D2) 1,250 1,250 mcg PO FR 03/01/24 03/28/24 mcg (50,000 unit) capsule (Vitamin D2) folic acid 1 mg tablet 1 mg PO DAILY 03/01/24 03/28/24 hydroxyurea 500 mg capsule 500 mg PO DAILY 03/01/24 03/28/24 PHYSICAL EXAM AT DISCHARGE General Appearance: positive No acute distress Eyes Bilateral: positive Normal inspection ENT: positive ENT inspection nml Neck: positive Nml inspection Respiratory: positive Chest non-tender and No respiratory distress Cardiovascular: positive Regular rate & rhythm Peripheral Pulses: positive 2+ Abdomen: positive Non-tender Skin: positive Color nml Extremities: positive Non-tender Neurologic/Psychiatric: positive Oriented x3 LABS 03/29/24 04:41 03/29/24 04:41 FOLLOW UP Follow Up: With hospice TIME SPENT Time Spent in Discharge (Minutes): 35 Discharge Plan Discharge Patient Disposition: 50 Hospice/Home DC/Xfer Condition: Poor Prescriptions: Continued hydroxyurea 500 mg capsule 500 mg PO DAILY Discontinued folic acid 1 mg tablet 1 mg PO DAILY allopurinol 300 mg tablet 300 mg PO DAILY ergocalciferol (vitamin D2) [Vitamin D2] 1,250 mcg (50,000 unit) capsule 1,250 mcg PO FR Patient Comments: Patient says he's taking once weekly on Fridays Diet: Regular Health Concerns: You came into the hospital because you are bleeding through your suprapubic catheter. A urinary catheter was placed and he was started on continuous bladder irrigation to get the blood clots out of your bladder. You were held in observation so that we could give you significant quantities of blood. We have stabilized she somewhat, and were now sending you home on hospice. The hospice team should be at your house 10 for intake. I would encourage you to reach out to your hospice team with any needs that you have Print Language: Tongan Stand Alone Forms: PCP List Follow-up Care: Analia Sutton PA-C [Primary Care Provider] -
--- NOTE | 2024-03-29 07:43 | PREOP HISTORY & PHYSICAL ---
Surgical History & Physical Chief Complaint/HPI Chief Complaint: hematuria History of Present Illness: 78 yo M well known to me with hx of myeloproliferative disorder who has had multiple issues with gross hematuria secondary to anemia and thrombocytopenia. He normally performs CIC but a chronic catheter has been in place to prevent irritation, which was switched to a SPT 03/22/24. He however continues to have hematuria likely secondary to catheter irritation. He presented again to the hospital yesterday with clot retention. His Hg was 4.7. He was transfused. A urethral catheter was replaced and he was irrigated out of clots and put on CBI overnight. His vitals are stable. He is planning to move to hospice care soon. Home Meds and Allergies Active Medications Generic Name Dose Route Start Last Admin Trade Name Freq PRN Reason Stop Dose Admin Acetaminophen 650 mg 03/28/24 14:28 Acetaminophen 325 Mg Tablet PO Q4HR PRN Pain 1 to 4, or Fever Allopurinol 300 mg 03/29/24 09:00 Allopurinol 100 Mg Tablet PO DAILY ILDA Ergocalciferol 50,000 unit 04/02/24 09:00 Ergocalciferol 50,000 Unit Capsule PO FR ILDA Folic Acid 1 mg 03/29/24 09:00 Folic Acid 1 Mg Tablet PO DAILY ILDA Hydromorphone HCl 0.5 mg 03/28/24 15:09 03/28/24 15:31 Hydromorphone 0.5 Mg/0.5 Ml Syringe IVP 0.5 mg Q2H PRN Administration Severe Pain (Level 7-10) Hydroxyurea 500 mg 03/29/24 09:00 Hydroxyurea 500 Mg Capsule PO DAILY ILDA Lactated Ringer's 1,000 mls @ 150 mls/hr 03/28/24 21:00 03/29/24 04:35 Lr IV 150 mls/hr .[id number] ILDA Administration Midodrine 10 mg 03/28/24 17:00 03/28/24 16:06 Midodrine 10 Mg Tablet PO 10 mg TIDWM ILDA Administration Ondansetron HCl 4 mg 03/28/24 14:28 Ondansetron Odt 4 Mg Tablet TL Q6HR PRN Nausea / Vomiting Ondansetron HCl 4 mg 03/28/24 14:28 03/28/24 19:10 Ondansetron 4 Mg/2 Ml Vial IVP 4 mg Q6HR PRN Administration Nausea / Vomiting Prochlorperazine Edisylate 10 mg 03/28/24 19:58 03/28/24 20:07 Prochlorperazine 10 Mg/2 Ml Vial IVP 10 mg Q6HR PRN Administration Nausea / Vomiting Sodium Chloride 10 ml 03/28/24 14:28 03/28/24 19:10 Sodium Chloride Flush 0.9% 10 Ml Syringe IVP 10 ml PRN PRN Administration NEEDED PER PROVIDER ORDERS Sodium Chloride 10 ml 03/28/24 17:00 03/29/24 00:16 Sodium Chloride Flush 0.9% 10 Ml Syringe IVP Not Given 0100,0900,1700 ILDA allopurinol 300 mg tablet 300 mg PO DAILY 03/01/24 ergocalciferol (vitamin D2) 1,250 mcg (50,000 unit) capsule (Vitamin D2) 1,250 mcg PO FR 03/01/24 folic acid 1 mg tablet 1 mg PO DAILY 03/01/24 hydroxyurea 500 mg capsule 500 mg PO DAILY 03/01/24 Allergies Allergy/AdvReac Type Severity Reaction Status Date / Time Sulfa (Sulfonamide Allergy Severe Unknown Verified 03/28/24 08:58 Antibiotics) Vital Signs O2 Saturation: 95 Patient Review Patient Review Pertinent Tests Reviewed [facility] Medical History Medical History (Updated 03/28/24 @ 13:54 by Cyrus Martinez MD) MDS/MPN (myelodysplastic/myeloproliferative neoplasms) Asthma Obstructive sleep apnea Anemia Bladder cancer Hematuria Bladder atonia History of retinal detachment Surgical History Surgical History Hx of detached retina repair Social History Social History Smoking Status: Never smoker If you are a former smoker, when did you quit? (Date/Year): 1966 Second hand tobacco smoke exposure: No Do you dip or chew tobacco?: No Do you vape?: No Patient requests smoking cessation consult: No Initiate information on smoking cessation: No Living arrangement: At home Marital Status: Living Condition: With spouse/s.o. Support Person: No Relationship: Spouse How many days per week?: 7 Level: Assisted Home Mobility Equipment: Walker Do you feel safe in your home environment?: Yes Suffered physical, verbal, emotional, or financial abuse?: No History of Abuse: No ETOH Use: None Frequency: Occasional Substance Use: denies use Occupation: [employer] Retired: Yes Service: Yes Dates of Service: [id number] Are you following a diet prescribed by a doctor: No Are you following a special diet: Yes (Golo Diet) POLST Patient has POLST: No POLST Status: Full Code Exam Exam NAD sleeping SPT in place, minimal output urethral rosenbaum with clear effluent on slow drip cbi Assessment & Plan Assessment & Plan Assessment & Plan: 78yo M with CML and MDP/MDS and severe chronic anemia/thromboycytopenia and hematuria. Has neurogenic bladder and urinary retention managed with SPT. Plan for hospice care soon. -Stop CBI. -Irrigate manually prn for blockage -urethral and SPT rosenbaum to gravity for comfort. Ok to remove the urethral rosenbaum if SPT draining ok and patient feels uncomfortable -notify urology to assist if needed -urology signing off
[2024-03-29] MEDS: allopurinoL 100 MG TABLET PO SCH (08:17)
[2024-03-29] MEDS: HYDROXYUREA 500 MG CAPSULE PO SCH (08:17)
[2024-03-29] MEDS: FOLIC ACID 1 MG TABLET PO SCH (08:17)
[2024-03-29 08:50] VITALS: O2SAT 94
[2024-03-29 09:10] VITALS: BP 100/58; TEMP 98.6
[2024-04-02] MEDS ORDERED: ERGOCALCIFEROL 50,000 UNIT CAPSULE PO SCH (09:00)
== END 2024-03-29 09:30 | disposition hospice, home (50) ==
LOC: MS3 08:55 → ED 08:55 → MS3 14:34
PROVIDERS: ADMIT Nurse Practitioner Acute Care; ATTEND Nurse Practitioner Acute Care